=== PATIENT | male | born 1970 | race Caucasian/White ===

== ENCOUNTER 2016-09-13 20:09 | Emergency (ER) | payer OTHER ==
[~2016-09-13] VITALS: Ht 175.3 cm; Wt 61.8 kg
[~2016-09-13 20:09] MED LIST: LBR25 PO; LEVE500T13 PO; THM100 PO
[2016-09-13 20:25] VITALS: TEMP 36.7; Ht 175.3 cm; Wt 61.8 kg
[2016-09-13] MEDS ORDERED: SODIUM CHLORIDE 0.9% 1000ML 1,000 ML IV STA (20:46)
[2016-09-13] MEDS ORDERED: ACETAMINOPHEN 500 MG TAB PO STA (20:46)
[2016-09-13] MEDS ORDERED: IBUPROFEN 200 MG TAB PO STA (20:46)
[2016-09-13] MEDS ORDERED: ONDANSETRON INJ 2 MG/ML 2 ML VIAL IV STA (20:46)
[2016-09-13] MEDS ORDERED: KETOROLAC TROMETHAMINE 30 MG/ML VIAL IV STA (20:46)
--- NOTE | 2016-09-13 20:52 | EMERGENCY ROOM VISIT NOTE ---
History Report prepared by Broderick: Saeed Berg Under the Supervision of: Dr. Clarence Landaverde M.D. First contact with patient: 20:32 Chief Complaint: ILLNESS Stated Complaint: THROWING UP,DIZZY,SORE THROAT,FELL DOWN FRI History of Present Illness The patient is a 46 year old male who presents to the Emergency Room with complaints of a persistent illness beginning last night. He notes that he has had chills, fever, dizziness, confusion, sore throat, and vomiting. He also states that he fell 3 days ago while going up steps. He hit his head and does not know how long he was laying on the ground. Source of History: patient Onset: last night Position: head, other (global) Quality: other (illness) Timing: other (persistent) Associated Symptoms: + chills, + fevers, + sorethroat, + vomiting Note: The patient notes having dizziness and confusion. Review of Systems See HPI for pertinent positives & negatives. A total of 10 systems reviewed and were otherwise negative. Past Medical & Surgical Medical Problems: (1) Alcohol abuse (2) Alcohol withdrawal seizure (3) Seizure Surgical Problems: (1) H/O hernia repair Family History No significant family history Social History Smoking Status: Never Smoker Alcohol Use: heavy Housing Status: lives alone Current/Historical Medications Scheduled Levetiracetam (Keppra), 500 MG PO BID Scheduled PRN Dextromethorphan-Phenylephrine (Day Time Cold/Flu Relief), 30 ML PO Q4 PRN for SYMPTOMS Ondansetron Hcl (Zofran), 4 MG PO Q6 PRN for Nausea Allergies Coded Allergies: Codeine (Verified Adverse Reaction, Mild, VOMITING, 04/28/16) Hydrocodone (Verified Adverse Reaction, Mild, VOMIT, 04/28/16) Physical Exam Vital Signs Date Time Temp Pulse Resp B/P Pulse Ox O2 Delivery O2 Flow Rate FiO2 09/13/16 22:11 86 20 124/94 96 Room Air 09/13/16 20:25 36.7 95 16 132/97 99 Room Air Physical Exam CONSTITUTIONAL: Patient is in mild distress. HEENT: No icterus, moist mucous membranes. Bruise noted on forehead. NECK: No meningismus, trachea is midline. CARDIOVASCULAR: Regular rate, normal perfusion RESPIRATORY: Unlabored breathing. Clear to auscultation. GASTROINTESTINAL: Non-tender GENITOURINARY: No flank tenderness MUSCULOSKELETAL: Full range of motion NEUROLOGIC: No acute gross focal deficits. PSYCHIATRIC: Normal affect SKIN: Normal for ethnicity. Medical Decision & Procedures ER Provider Diagnostic Interpretation: CT results as stated below per my review and radiologist interpretation. HEAD CT NONCONTRAST Findings: The paranasal sinuses and mastoid air cells are clear. The calvarium and skull base are intact. The ventricles and sulci are within normal limits. There is no mass, hematoma, midline shift, or acute infarct. Impression: No acute intracranial abnormality. Electronically signed by: Jamison Doshi M.D. 09/13/2016 9:28 PM Dictated Date/Time: 09/13/2016 9:23 PM Laboratory Results 09/13/16 20:55 Red Blood Count 5.09, Mean Corpuscular Volume 86.4, Mean Corpuscular Hemoglobin 29.3, Mean Corpuscular Hemoglobin Concent 33.9, Mean Platelet Volume 9.7, Neutrophils (%) (Auto) 40.9, Lymphocytes (%) (Auto) 41.4, Monocytes (%) (Auto) 14.6, Eosinophils (%) (Auto) 2.0, Basophils (%) (Auto) 0.9, Neutrophils # (Auto ) 2.26, Lymphocytes # (Auto) 2.29, Monocytes # (Auto) 0.81, Eosinophils # (Auto ) 0.11, Basophils # (Auto) 0.05 09/13/16 20:55 Test 09/13/16 00:00 09/13/16 20:55 Influenza Type A Antigen Neg for Influ A (NEG) Influenza Type B Antigen Neg for Influ B (NEG) White Blood Count 5.53 K/uL (4.8-10.8) Red Blood Count 5.09 M/uL (4.7-6.1) Hemoglobin 14.9 g/dL (14.0-18.0) Hematocrit 44.0 % (42-52) Mean Corpuscular Volume 86.4 fL (80-100) Mean Corpuscular Hemoglobin 29.3 pg (25-34) Mean Corpuscular Hemoglobin Concent 33.9 g/dl (32-36) Platelet Count 288 K/uL (130-400) Mean Platelet Volume 9.7 fL (7.4-10.4) Neutrophils (%) (Auto) 40.9 % Lymphocytes (%) (Auto) 41.4 % Monocytes (%) (Auto) 14.6 % Eosinophils (%) (Auto) 2.0 % Basophils (%) (Auto) 0.9 % Neutrophils # (Auto) 2.26 K/uL (1.4-6.5) Lymphocytes # (Auto) 2.29 K/uL (1.2-3.4) Monocytes # (Auto) 0.81 K/uL (0.11-0.59) Eosinophils # (Auto) 0.11 K/uL (0-0.5) Basophils # (Auto) 0.05 K/uL (0-0.2) RDW Standard Deviation 43.8 fL (36.4-46.3) RDW Coefficient of Variation 14.0 % (11.5-14.5) Immature Granulocyte % (Auto) 0.2 % Immature Granulocyte # (Auto) 0.01 K/uL (0.00-0.02) Anion Gap 11.0 mmol/L (3-11) Est Creatinine Clear Calc Drug Dose 112.4 ml/min Estimated GFR () 129.5 Estimated GFR (Non- 111.7 BUN/Creatinine Ratio 6.9 (10-20) Calcium Level 9.2 mg/dl (8.5-10.1) Total Bilirubin 0.4 mg/dl (0.2-1) Aspartate Amino Transf (AST/SGOT) 23 U/L (15-37) Alanine Aminotransferase (ALT/SGPT) 14 U/L (12-78) Alkaline Phosphatase 78 U/L (45-117) Total Protein 8.4 gm/dl (6.4-8.2) Albumin 3.8 gm/dl (3.4-5.0) Globulin 4.6 gm/dl (2.5-4.0) Albumin/Globulin Ratio 0.8 (0.9-2) Labs reviewed by ED physician. Medications Administered Medications (Trade) Dose Ordered Sig/Ricardo Route Start Time Stop Time Status Last Admin Dose Admin Acetaminophen (Tylenol Tab) 1,000 mg NOW STAT PO 09/13/16 20:46 09/13/16 20:48 DC 09/13/16 21:04 1,000 MG Ibuprofen 400 mg 400 mg NOW STAT PO 09/13/16 20:46 09/13/16 20:48 DC 09/13/16 21:04 400 MG Sodium Chloride (Nss 1000ml) 1,000 ml @ 0 mls/hr Q0M STAT IV 09/13/16 20:46 09/13/16 20:48 DC 09/13/16 21:04 999 MLS/HR Ketorolac Tromethamine (Toradol Inj) 30 mg NOW STAT IV 09/13/16 20:46 09/13/16 20:48 DC 09/13/16 21:05 30 MG Ondansetron HCl (Zofran Inj) 4 mg NOW STAT IV 09/13/16 20:46 09/13/16 20:48 DC 09/13/16 21:05 4 MG ED Course 2039: Past medical records reviewed. The patient was evaluated in room C12B. A complete history and physical examination was performed. 2045: Ordered Zofran Inj 4 mg IV, Toradol Inj 30 mg IV, NSS 1,000 ml @ 0 mls/hr Wide Open IV, Ibuprofen 400 mg PO, and Acetaminophen 1,000 mg PO. 2229: Ordered Ondansetron HCl 1 homepack PO. 2234: Upon reexamination the patient is hemodynamically stable. I discussed results and treatment plan with the patient. He verbalizes agreement and understanding. The patient is ready for discharge. Medical Decision Differentials include concussion, and viral syndrome. 46-year-old presents to the emergency room with his for evaluation of generalized malaise, mild headache and nausea after striking his head after mechanical fall on his stairs roughly 1 week ago. Review of systems notable for upper respiratory complaints, occasional non-positional dizziness. Patient hydrated with IV fluids, laboratories are normal and CT head negative. He was given Zofran home program prescription. Work note for today and tomorrow provided patient request. Impression Primary Impression: Concussion Additional Impression: Viral syndrome Scribe Attestation The scribe's documentation has been prepared under my direction and personally reviewed by me in its entirety. I confirm that the note above accurately reflects all work, treatment, procedures, and medical decision making performed by me. Departure Information Dispostion Home / Self-Care Prescriptions Ondansetron Hcl (ZOFRAN) 4 Mg Tab 4 MG PO Q6 Y for Nausea, #20 TAB Prov: Clarence Landaverde MD 1/16/17 Referrals Levon Cardenas M.D. (PCP) Patient Instructions Concussion Dc, ED Viral Syndrome, My [facility] Problem Qualifiers
[2016-09-13 21:07] LABS: BASO % 0.9 %; BASO ABS # 0.05 K/uL (0-0.2); COMPLETE YES; IG% 0.2 %; LYMPH % 41.4 %; LYMPH ABS # 2.29 K/uL (1.2-3.4); MEAN CELL VOLUME 86.4 fL (80-100); MEAN CORPUSCULAR HEMOGLOBIN 29.3 pg (25-34); MEAN CORPUSCULAR HGB CONC 33.9 g/dl (32-36); MEAN PLATELET VOLUME 9.7 fL (7.4-10.4); MONO % 14.6 %; NEUT % 40.9 %; PLATELET COUNT 288 K/uL (130-400); RED BLOOD COUNT 5.09 M/uL (4.7-6.1); WHITE BLOOD COUNT 5.53 K/uL (4.8-10.8)
[2016-09-13] MEDS ORDERED: DEXT-119 PO (21:15)
--- NOTE | 2016-09-13 21:30 | DIAGNOSTIC IMAGING REPORT ---
HEAD CT NONCONTRAST CT DOSE: 537.48 mGy.cm HISTORY: head injury several days ago TECHNIQUE: Multiaxial CT images of the head were performed without the use of intravenous contrast. Automated exposure control was utilized for this study. Comparison: Head CT 04/16/2016. Findings: The paranasal sinuses and mastoid air cells are clear. The calvarium and skull base are intact. The ventricles and sulci are within normal limits. There is no mass, hematoma, midline shift, or acute infarct. Impression: No acute intracranial abnormality. Electronically signed by: Jamison Doshi M.D. 09/13/2016 9:28 PM Dictated Date/Time: 09/13/2016 9:23 PM
[2016-09-13 21:37] LABS: BUN/CREATININE RATIO 6.9 (10-20); CALCIUM 9.2 mg/dl (8.5-10.1); CREATININE 0.71 mg/dl (0.60-1.40)
[2016-09-13 21:40] LABS: ALB/GLOB RATIO 0.8 (0.9-2)
[2016-09-13 22:11] VITALS: BP 124/94; PULSE 86; O2SAT 96
[2016-09-13] MEDS ORDERED: ONDA4TAB46 PO (22:22)
[2016-09-13] MEDS ORDERED: ONDANSETRON HOME PACK 4MG OD TAB PO ONE (22:30)
== END 2016-09-13 22:38 | disposition home or self-care (01) ==
LOC: C.EDB 20:11 → C.EDC 22:38
DX: S06.0X9A Concussion with loss of consciousness of unspecified duration, initial encounter (principal); B34.9 Viral infection, unspecified; W10.9XXA Fall (on) (from) unspecified stairs and steps, initial encounter; R11.10 Vomiting, unspecified; G40.909 Epilepsy, unspecified, not intractable, without status epilepticus; Z79.899 Other long term (current) drug therapy

== ENCOUNTER 2017-10-01 15:14 | Emergency (ER) | payer BC, OTHER ==
[~2017-10-01] VITALS: Ht 177.8 cm; Wt 62.5 kg
[~2017-10-01 15:14] MED LIST changes: +DEXT-119 PO; -LBR25 PO; -THM100 PO
[2017-10-01 15:20] VITALS: TEMP 36.4; Ht 177.8 cm; Wt 62.5 kg
[2017-10-01] MEDS ORDERED: ONDA4TAB46 SL (15:27)
[2017-10-01] MEDS ORDERED: LISI10TA PO (15:27)
[2017-10-01] MEDS ORDERED: SODIUM CHLORIDE 0.9% 1000ML 1,000 ML IV STA ×2 (15:38→18:10)
[2017-10-01 15:46] VITALS: O2SAT 99
[2017-10-01] MEDS ORDERED: METH500T37 PO (15:56)
[2017-10-01 16:20] LABS: BASO % 0.4 %; BASO ABS # 0.04 K/uL (0-0.2); EOS % 0.6 %; EOS ABS # 0.06 K/uL (0-0.5); HEMATOCRIT 45.7 % (42-52); IG# 0.03 K/uL (0.00-0.02); LYMPH ABS # 0.87 K/uL (1.2-3.4); MEAN CELL VOLUME 96.2 fL (80-100); MEAN CORPUSCULAR HEMOGLOBIN 33.7 pg (25-34); MEAN PLATELET VOLUME 9.4 fL (7.4-10.4); MONO % 11.3 %; MONO ABS # 1.23 K/uL (0.11-0.59); NEUT % 79.4 %; NEUT ABS # 8.64 K/uL (1.4-6.5); PLATELET COUNT 228 K/uL (130-400); RED CELL DISTRIBUTION WIDTH CV 13.8 % (11.5-14.5); RED CELL DISTRIBUTION WIDTH SD 48.3 fL (36.4-46.3); WHITE BLOOD COUNT 10.87 K/uL (4.8-10.8)
[2017-10-01 16:38] LABS: ALBUMIN 3.7 gm/dl (3.4-5.0); ALT/SGPT 58 U/L (12-78); AST/SGOT 97 U/L (15-37); BLOOD UREA NITROGEN 6 mg/dl (7-18); CALCIUM 8.8 mg/dl (8.5-10.1); CARBON DIOXIDE 26 mmol/L (21-32); CREATININE 0.97 mg/dl (0.60-1.40); GLUCOSE 97 mg/dl (70-99); LIPASE 296 U/L (73-393); SODIUM 136 mmol/L (136-145)
[2017-10-01 16:49] LABS: ALKALINE PHOSPHATASE 58 U/L (45-117); TOTAL PROTEIN 8.2 gm/dl (6.4-8.2)
[2017-10-01 16:50] LABS: INFLUENZA B ANTIGEN Neg for Influ B (NEG)
--- NOTE | 2017-10-01 17:24 | DIAGNOSTIC IMAGING REPORT ---
ABDOMINAL ULTRASOUND, RIGHT UPPER QUADRANT HISTORY: Epigastric abdominal pain. COMPARISON: Right upper quadrant ultrasound May 19, [address] of the abdomen and pelvis May 20, 2011 FINDINGS: Hepatic echogenicity is increased. This is consistent with fatty infiltration. No hepatic lesions are identified by sonography. There is no biliary ductal dilatation. The common bile duct measures 3 mm in caliber. A small amount of perihepatic/pericholecystic ascites is present. There are no gallstones. No gallbladder wall thickening is noted. No sonographic Abarca sign was elicited. The pancreatic body is normal. The head and tail are slightly obscured by bowel gas. There is no right hydronephrosis. IMPRESSION: 1. Fatty infiltration of the liver. 2. Small amount of perihepatic ascites. Slight nodularity of the liver surface may reflect cirrhosis. 3. No gallstones or gallbladder wall thickening. 4. No biliary ductal dilatation. Electronically signed by: Lobo Bautista M.D. 10/01/2017 5:23 PM Dictated Date/Time: 10/01/2017 5:19 PM
--- NOTE | 2017-10-01 18:02 | EMERGENCY ROOM VISIT NOTE ---
History First contact with patient: 15:27 Chief Complaint: GI ASSESSMENT Stated Complaint: SHAKES,SWEATS,STOMACH CRAMPS,VOMITING,DOC REFERRED Nursing Triage Summary: PT STATES GENERALIZED ABDOMINAL PAIN WITH NAUSEA AND VOMITING, PAIN ON PALPATION RUQ, PT STATES NO DIARRHEA NOTED, STATES FEVER, HEADACHE. [place] [facility] [place] TOLD TO COME TO ED FOR FLUIDS AFTER PT HAD NEAR SYNCOPE. History of Present Illness The patient is a 47 year old male who presents to the Emergency Room via private vehicle accompanied by family with complaints of "shakes, sweats, stomach cramps, vomiting, doc referred". The patient states that yesterday he was started upon lisinopril, woke up this morning and had stomach cramps, better in the epigastric region. He has never had these before. He does note a steady consumption of beer. He states that he has had no seizures recently. He states that today he went agrees words because of the epigastric abdominal pain and was informed this was likely a viral etiology, however during his stay when he was getting ready to depart he went to stand from a sitting position sat back down and passed out. He states then he was recommended to come here for evaluation. Review of Systems A complete 10-point Review of Systems was discussed with the patient, with pertinent positives and negatives listed in the History of Present Illness. All remaining Review of Systems questions can be considered negative unless otherwise specified. Past Medical/Surgical History Medical Problems: (1) Alcohol abuse (2) Alcohol withdrawal seizure (3) Seizure Surgical Problems: (1) H/O hernia repair Family History No significant family history Social History Smoking Status: Never Smoker Alcohol Use: heavy Housing Status: lives alone Current/Historical Medications Scheduled Lisinopril (Prinivil), 10 MG PO DAILY Methocarbamol (Robaxin), 1 PO PRN UD Scheduled PRN Ondansetron Hcl (Zofran), 4 MG SL Q8 PRN for Nausea Physical Exam Vital Signs Date Time Temp Pulse Resp B/P (MAP) Pulse Ox O2 Delivery O2 Flow Rate FiO2 10/01/17 18:16 83 14 114/96 98 Room Air 10/01/17 18:01 86 14 134/89 96 Room Air 106 134/86 118 114/96 10/01/17 15:46 99 Room Air 10/01/17 15:36 74 10/01/17 15:20 36.4 92 18 107/75 100 Room Air Physical Exam VITAL SIGNS - Vital signs and nursing notes were reviewed. Stable. GENERAL -47-year-old male appearing his stated age who is in no acute distress. Communicates well with provider and answers questions appropriately. SKIN - Without rashes. No petechial or meningeal rash. HEAD - NC/AT. EYES - PERRL with EOMI bilaterally. Sclera anicteric. EARS - No deformities of external structures noted on gross examination bilaterally. NOSE - Midline and without cyanosis. No epistaxis or purulent drainage noted. MOUTH/OROPHARYNX - Without perioral cyanosis. LUNGS - Chest wall symmetric without accessory muscle use, intercostals retractions, or central cyanosis. Normal vesicular breath sounds CTA B/L. No wheezes, rales, or rhonchi appreciated. CARDIAC - RRR with S1/S2. No murmur, rubs, or gallops appreciated. ABDOMEN - Abdominal contour normal without pulsations or visible masses. BS normoactive all four quadrants. Epigastric abdominal tenderness noted. No palpable masses, hepatosplenomegaly, or ascites noted. EXTREMITIES - No clubbing or peripheral cyanosis. No pretibial edema present. +5 /5 strength noted in UE/LE bilaterally. NEUROLOGIC - Cranial nerves II through XII grossly intact. Sensory intact to light touch throughout. PSYCH - A&O, and cooperates fully with examiner. Pt is very pleasant and interacts well with examiner. Medical Decision & Procedures ER Provider Diagnostic Interpretation: ABDOMINAL ULTRASOUND, RIGHT UPPER QUADRANT HISTORY: Epigastric abdominal pain. COMPARISON: Right upper quadrant ultrasound May 19, [address] of the abdomen and pelvis May 20, 2011 FINDINGS: Hepatic echogenicity is increased. This is consistent with fatty infiltration. No hepatic lesions are identified by sonography. There is no biliary ductal dilatation. The common bile duct measures 3 mm in caliber. A small amount of perihepatic/pericholecystic ascites is present. There are no gallstones. No gallbladder wall thickening is noted. No sonographic Abarca sign was elicited. The pancreatic body is normal. The head and tail are slightly obscured by bowel gas. There is no right hydronephrosis. IMPRESSION: 1. Fatty infiltration of the liver. 2. Small amount of perihepatic ascites. Slight nodularity of the liver surface may reflect cirrhosis. 3. No gallstones or gallbladder wall thickening. 4. No biliary ductal dilatation. Electronically signed by: Lobo Bautista M.D. 10/01/2017 5:23 PM Dictated Date/Time: 10/01/2017 5:19 PM Laboratory Results 10/01/17 15:59 Red Blood Count 4.75, Mean Corpuscular Volume 96.2, Mean Corpuscular Hemoglobin 33.7, Mean Corpuscular Hemoglobin Concent 35.0, Mean Platelet Volume 9.4, Neutrophils (%) (Auto) 79.4, Lymphocytes (%) (Auto) 8.0, Monocytes (%) (Auto) 11.3, Eosinophils (%) (Auto) 0.6, Basophils (%) (Auto) 0.4, Neutrophils # (Auto ) 8.64, Lymphocytes # (Auto) 0.87, Monocytes # (Auto) 1.23, Eosinophils # (Auto ) 0.06, Basophils # (Auto) 0.04 10/01/17 15:59 Test 10/01/17 15:59 10/01/17 16:01 10/01/17 17:03 White Blood Count 10.87 K/uL (4.8-10.8) Red Blood Count 4.75 M/uL (4.7-6.1) Hemoglobin 16.0 g/dL (14.0-18.0) Hematocrit 45.7 % (42-52) Mean Corpuscular Volume 96.2 fL (80-100) Mean Corpuscular Hemoglobin 33.7 pg (25-34) Mean Corpuscular Hemoglobin Concent 35.0 g/dl (32-36) Platelet Count 228 K/uL (130-400) Mean Platelet Volume 9.4 fL (7.4-10.4) Neutrophils (%) (Auto) 79.4 % Lymphocytes (%) (Auto) 8.0 % Monocytes (%) (Auto) 11.3 % Eosinophils (%) (Auto) 0.6 % Basophils (%) (Auto) 0.4 % Neutrophils # (Auto) 8.64 K/uL (1.4-6.5) Lymphocytes # (Auto) 0.87 K/uL (1.2-3.4) Monocytes # (Auto) 1.23 K/uL (0.11-0.59) Eosinophils # (Auto) 0.06 K/uL (0-0.5) Basophils # (Auto) 0.04 K/uL (0-0.2) RDW Standard Deviation 48.3 fL (36.4-46.3) RDW Coefficient of Variation 13.8 % (11.5-14.5) Immature Granulocyte % (Auto) 0.3 % Immature Granulocyte # (Auto) 0.03 K/uL (0.00-0.02) Anion Gap 8.0 mmol/L (3-11) Est Creatinine Clear Calc Drug Dose 82.3 ml/min Estimated GFR () 106.6 Estimated GFR (Non- 91.9 BUN/Creatinine Ratio 6.0 (10-20) Calcium Level 8.8 mg/dl (8.5-10.1) Magnesium Level 1.8 mg/dl (1.8-2.4) Total Bilirubin 1.2 mg/dl (0.2-1) Aspartate Amino Transf (AST/SGOT) 97 U/L (15-37) Alanine Aminotransferase (ALT/SGPT) 58 U/L (12-78) Alkaline Phosphatase 58 U/L (45-117) Troponin I < 0.015 ng/ml (0-0.045) Total Protein 8.2 gm/dl (6.4-8.2) Albumin 3.7 gm/dl (3.4-5.0) Globulin 4.5 gm/dl (2.5-4.0) Albumin/Globulin Ratio 0.8 (0.9-2) Lipase 296 U/L (73-393) Thyroid Stimulating Hormone (TSH) 1.260 uIu/ml (0.300-4.500) Ethyl Alcohol mg/dL 9.0 mg/dl (0-3) Influenza Type A Antigen Neg for Influ A (NEG) Influenza Type B Antigen Neg for Influ B (NEG) Urine Color DK YELLOW Urine Appearance CLEAR (CLEAR) Urine pH 6.0 (4.5-7.5) Urine Specific [place] 1.018 (1.000-1.030) Urine Protein 1+ (NEG) Urine Glucose (UA) TRACE (NEG) Urine Ketones TRACE (NEG) Urine Occult Blood NEG (NEG) Urine Nitrite NEG (NEG) Urine Bilirubin NEG (NEG) Urine Urobilinogen NEG (NEG) Urine Leukocyte Esterase NEG (NEG) Urine WBC (Auto) 1-5 /hpf (0-5) Urine RBC (Auto) 0-4 /hpf (0-4) Urine Hyaline Casts (Auto) 1-5 /lpf (0-5) Urine Epithelial Cells (Auto) 10-20 /lpf (0-5) Urine Bacteria (Auto) NEG (NEG) Urine Pathogenic Casts 1-5 GRANULAR CASTS /lpf (0) Urine Opiates Screen NEG (NEG) Urine Methadone, Qualitative NEG (NEG) Urine Barbiturates NEG (NEG) Urine Phencyclidine (PCP) Level NEG (NEG) Ur Amphetamine/Methamphetamine NEG (NEG) MDMA (Ecstasy) Screen NEG (NEG) Urine Benzodiazepines Screen NEG (NEG) Urine Cocaine Metabolite NEG (NEG) Urine Marijuana (THC) NEG (NEG) Medications Administered Medications (Trade) Dose Ordered Sig/Ricardo Route Start Time Stop Time Status Last Admin Dose Admin Sodium Chloride 1,000 ml @ 999 mls/hr Q1H1M STAT IV 10/01/17 15:38 10/01/17 16:38 DC 10/01/17 16:03 999 MLS/HR Sodium Chloride 1,000 ml @ 999 mls/hr Q1H1M STAT IV 10/01/17 18:10 10/01/17 19:10 10/01/17 18:16 999 MLS/HR Medical Decision Patient was seen and evaluated as above. He presents to us today with epigastric abdominal pain and syncopal event. He is nontoxic on exam, and bedside EKG reveals normal sinus rhythm, prolonged QT. No evidence of PR on this EKG. he was informed upon the QT prolongation however this was found to be chronic when I reviewed his previous EKG of 04/25/2016. He declines pain medication. He was given normal saline and orthostatics were obtained. He was found orthostatic and was given another liter. By mouth fluid trial was well. His leukocytosis at 10.7 which is minimal, no anemia noted. Metabolic panel reveals no evidence of kidney or liver failure. His AST is elevated at 97 with bilirubin 1.2. Urine reveals trace ketones, epithelial cells and granular casts. Patient's alcohol level is 9.0. Other drug screen was negative. Negative for flu. I suspect is likely experiencing acute gastritis which could be exacerbated by the recent lisinopril dosage however I suspect the lisinopril initiation yesterday is likely just coincidental. He was informed that the beer does not help the gastritis. Ultrasound right upper quadrant reveals no acute process. He was informed upon the incidental's. He has tenderness in the epigastric region. No evidence of PR. After the second liter of fluid his feeling much better. 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 He did not pass out. I believe he is stable for outpatient management. He was educated upon management, educated upon worrisome symptoms which to return, had questions answered prior to discharge, and was discharged home in good condition. Case was discussed with the attending physician. In the evaluation and treatment of this patient following differential diagnoses were entertained: Acute gastroenteritis, acute cholecystitis, PR, PE, among others. Impression Primary Impression: Gastritis Additional Impressions: Syncope Fatty infiltration of liver QT prolongation Bilirubinemia Elevated AST (SGOT) Departure Information Dispostion Home / Self-Care Condition GOOD Referrals Levon Cardenas M.D. (PCP) Patient Instructions My [facility] Additional Instructions You have been treated in the Emergency Department your Abdominal Pain. Laboratory results and imaging studies have ruled out any emergent causes for your abdominal pain which would warrant admission or surgery. I suspect are likely experiencing gastritis, which has irritation of your stomach lining. Please decrease acidic foods, such as eliminating soda, acidic beer, hot sauce, tomato juice, pizza, etc. I recommend using Tums for extreme onsets of pain, or Maalox. Please do not use more than what is recommended. Drink plenty of water and stay well hydrated. As with any trip to the Emergency Department, you should follow-up with your Primary Care Provider from today's visit. Please follow up for the ultrasound today, your blood work and the QT prolongation on your EKG which appears to be chronic. Return to the emergency department if your symptoms persist despite treatment plan outlined above or if the following symptoms occur: increased fevers, chills , worsening nausea/vomiting, blood in your stool or urine. Problem Qualifiers
[2017-10-01 20:09] VITALS: BP 145/94; PULSE 82; O2SAT 98
== END 2017-10-01 20:10 | disposition home or self-care (01) ==
LOC: C.EDB 15:16
DX: K29.70 Gastritis, unspecified, without bleeding (principal); R55 Syncope and collapse; K76.0 Fatty (change of) liver, not elsewhere classified; I45.81 Long QT syndrome; E80.7 Disorder of bilirubin metabolism, unspecified; R94.5 Abnormal results of liver function studies; Z98.890 Other specified postprocedural states

== ENCOUNTER 2017-12-30 20:48 | Emergency (ER) | payer BC ==
[~2017-12-30] VITALS: Ht 172.7 cm; Wt 60.2 kg
[~2017-12-30 20:48] MED LIST changes: -DEXT-119 PO; -LEVE500T13 PO; +LISI10TA PO; +METH500T37 PO; +ONDA4TAB46 SL
[2017-12-30 20:52] VITALS: TEMP 36.6; Ht 172.7 cm; Wt 60.2 kg
--- NOTE | 2017-12-30 21:36 | EMERGENCY ROOM VISIT NOTE ---
History Report prepared by Broderick: Justin Mishra Under the Supervision of: Dr. Camilla Grey D.O. First contact with patient: 21:29 Chief Complaint: HEAD INJURY (MINOR) Stated Complaint: HIT IN THE HEAD W BASEBALL, MEMORY LOSS, VOMITING History of Present Illness The patient is a 47 year old male who presents to the Emergency Room with complaints of a constant head injury occurring three hours ago. 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 He notes that an eight year old with a strong arm accidentally threw the baseball at the right side of his head. He reports that he did not lose consciousness but does not remember much of the accident. The patient states that he was able to get up by himself. Per , the patient vomited twice while at home and seemed confused. The patient also complains of dizziness and nausea. He denies any blurry vision, ringing in his ears, CP, SOB, neck pain, jaw pain, and back pain. He notes that he does not take any medication or have any chronic problems. No vomiting since arrival here. Patient does not use any daily aspirin, plavix, or other anticoagulation. Source of History: patient, family () Onset: three hours ago Position: head (right-sided) Symptom Intensity: 05/18 Timing: constant Associated Symptoms: + nausea, + vomiting (x2), No LOC, No neck pain, No chest pain, No SOB, No back pain Note: Per , the patient seems confused. The patient also complains of dizziness. He denies any blurry vision, ringing in his ears, and jaw pain. Review of Systems See HPI for pertinent positives & negatives. A total of 10 systems reviewed and were otherwise negative. Past Medical & Surgical Medical Problems: (1) Alcohol abuse (2) Alcohol withdrawal seizure (3) Seizure Surgical Problems: (1) H/O hernia repair Family History Diabetes mellitus FHx: cancer FHx: seizures Heart disease Hypertension Lung disease Social History Smoking Status: Never Smoker Alcohol Use: heavy Marital Status: Housing Status: lives with family Current/Historical Medications No Active Prescriptions or Reported Meds Allergies Coded Allergies: Codeine (Verified Adverse Reaction, Mild, VOMITING, 12/30/17) Hydrocodone (Verified Adverse Reaction, Mild, VOMIT, 12/30/17) Physical Exam Vital Signs Date Time Temp Pulse Resp B/P (MAP) Pulse Ox O2 Delivery O2 Flow Rate FiO2 12/30/17 23:28 85 18 116/87 96 Room Air 12/30/17 20:52 36.6 92 18 154/104 96 Room Air Physical Exam GENERAL: alert, well appearing, well nourished, no distress, non-toxic, poor dentition HEAD: normal cephalic, atraumatic, pain over left muslim, no obvious contusion or swelling EYE EXAM: normal conjunctiva, PERRL and EOM's grossly intact OROPHARYNX: no exudate, no erythema, lips, buccal mucosa, and tongue normal and mucous membranes are moist EARS: Left TM clear, right TM could not be visualized due to cerumen. NECK: supple, no nuchal rigidity, no adenopathy, non-tender CHEST: stable to compression anteriorly and posteriorly LUNGS: clear to auscultation. Normal chest wall mechanics HEART: no murmurs, S1 normal and S2 normal ABDOMEN: abdomen soft, non-tender, normo-active bowel sounds, no masses, no rebound or guarding. PELVIS: stable to compression anteriorly and posteriorly BACK: Back is symmetrical on inspection and there is no deformity, no midline tenderness, no CVA tenderness. UPPER EXTREMITIES: full active and passive range of motion of all joints without tenderness to palpation LOWER EXTREMITIES: full active and passive range of motion of all joints without tenderness to palpation NEURO EXAM: Normal sensorium, cranial nerves II-XII grossly intact, normal speech, no gross weakness of arms, no gross weakness of legs. GCS: 15. Medical Decision & Procedures ER Provider Diagnostic Interpretation: Radiology results have been interpreted by the radiologist and reviewed by me. HEAD WITHOUT CONTRAST (CT) FINDINGS: No acute intracranial hemorrhage, midline shift, intracranial mass, hydrocephalus, territorial ischemia or abnormal extra-axial collection. The calvarium is intact. The paranasal sinuses, mastoid air cells, and middle ear cavities are clear. IMPRESSION: No acute intracranial abnormality or calvarial fracture. The above report was generated using voice recognition software. It may contain grammatical, syntax or spelling errors. Electronically signed by: Noel Greene M.D. 12/30/2017 10:18 PM ED Course 0: The patient was evaluated in room C6. A complete history and physical exam was performed. 2253: I reevaluated and updated the patient. 2323: Upon reevaluation, the patient is feeling better. I discussed the findings and the treatment plan with the patient. He verbalizes agreement and understanding. The patient was discharged home. Medical Decision Differential diagnosis: Etiologies such as fracture, dislocation, intra-abdominal, pneumothorax, intrathoracic , intracranial, neurologic, as well as other traumatic pathologies were entertained. Discussed with patient close follow-up with family doctor, symptoms and precautions regarding concussions, adequate hydration, avoidance of any additional injury, symptoms to watch and return for, he verbalized understanding was agreeable with plan. Discussed with him small risk of occult intracranial hemorrhage given nature of trauma, he and verbalized understanding. I do not suspect any additional occult traumatic injury given his description and exam findings here. Patient ambulating with steady gait, driving him home. Head Trauma GCS Score: 15 Blood Pressure Screening Patient's blood pressure: Normal blood pressure Blood pressure disposition: Did not require urgent referral Impression Primary Impression: Closed head injury Additional Impression: Concussion Scribe Attestation The scribe's documentation has been prepared under my direction and personally reviewed by me in its entirety. I confirm that the note above accurately reflects all work, treatment, procedures, and medical decision making performed by me. Departure Information Dispostion Home / Self-Care Prescriptions No Active Prescriptions or Reported Meds Referrals Levon Cardenas M.D. (PCP) Forms HOME CARE DOCUMENTATION FORM, IMPORTANT VISIT INFORMATION Patient Instructions My [facility] Additional Instructions Please stay well-hydrated, you may use Tylenol or ibuprofen for pain. Please call follow-up with your family doctor as a precaution to assure that you are improving. Please avoid heavy lifting or strenuous activity until you are feeling better. Please note that your symptoms of a concussion may last for several days but should slowly be getting better. If you develop worsening headaches, dizziness, vision changes, develop recurrent vomiting, are unable to walk, or you have any other new concerns, please return the emergency room. Problem Qualifiers Primary Impression: Closed head injury Encounter type: initial encounter Qualified Codes: S09.90XA - Unspecified injury of head, initial encounter Additional Impression: Concussion Encounter type: initial encounter Loss of consciousness presence/duration: without LOC Qualified Codes: S06.0X0A - Concussion without loss of consciousness, initial encounter
--- NOTE | 2017-12-30 22:19 | DIAGNOSTIC IMAGING REPORT ---
HEAD WITHOUT CONTRAST (CT) CLINICAL HISTORY: 47 years-old Male with hit with baseball left druze. Acute left temporal trauma TECHNIQUE: Multiple axial CT images of the head were obtained without contrast. A dose lowering technique was utilized adhering to the principles of ALARA. CT DOSE: 729.78 mGycm COMPARISON: Head CT 09/13/2016. FINDINGS: No acute intracranial hemorrhage, midline shift, intracranial mass, hydrocephalus, territorial ischemia or abnormal extra-axial collection. The calvarium is intact. The paranasal sinuses, mastoid air cells, and middle ear cavities are clear. IMPRESSION: No acute intracranial abnormality or calvarial fracture. The above report was generated using voice recognition software. It may contain grammatical, syntax or spelling errors. Electronically signed by: Noel Greene M.D. 12/30/2017 10:18 PM Dictated Date/Time: 12/30/2017 10:16 PM
[2017-12-30 23:28] VITALS: BP 116/87; PULSE 85; O2SAT 96
== END 2017-12-30 23:29 | disposition home or self-care (01) ==
LOC: C.EDB 20:51 → C.EDC 23:29
DX: S06.0X0A Concussion without loss of consciousness, initial encounter (principal); R41.3 Other amnesia; R11.10 Vomiting, unspecified; W21.03XA Struck by baseball, initial encounter; Y92.320 Baseball field as the place of occurrence of the external cause

== ENCOUNTER 2020-09-24 19:30 | Observation (INO) ==
[2020-09-24] MEDS ORDERED: MULTI-VITAMIN INFUSION 10 ML, THIAMINE HCL 100 MG, FOLIC ACID 1 MG in SODIUM CHLORIDE 0... IV ONE (20:07)
[2020-09-24 20:38] LABS: Basophils # (auto) 0.03 K/uL (0-0.2); Basophils % (auto) 0.7 %; Eosinophils # (auto) 0.05 K/uL (0-0.5); Eosinophils % (auto) 1.2 %; Hematocrit (blood only) 37.4 % (42-52); Hemoglobin 13.1 g/dL (14.0-18.0); Immature Granulocytes # (auto) 0.01 K/uL (0.00-0.02); Immature Granulocytes % (auto) 0.2 %; Lymphocytes # (auto) 1.03 K/uL (1.2-3.4); Lymphocytes % (auto) 24.1 %; Mean Corpuscular Hemoglobin 33.3 pg (25-34); Mean Corpuscular Volume 95.2 fL (80-100); Mean Platelet Volume 9.4 fL (7.4-10.4); Monocytes # (auto) 0.74 K/uL (0.11-0.59); Monocytes % (auto) 17.3 %; Neutrophils # (auto) 2.42 K/uL (1.4-6.5); Neutrophils % (auto) 56.5 %; Platelet Count 149 K/uL (130-400); RDW Coefficient of Variation 13.6 % (11.5-14.5); RDW Standard Deviation 47.4 fL (36.4-46.3); Red Blood Count 3.93 M/uL (4.7-6.1); White Blood Count 4.28 K/uL (4.8-10.8)
[2020-09-24 20:47] LABS: Prothrombin Time 10.6 Seconds (9.0-12.0)
[2020-09-24 20:58] LABS: Albumin Level 3.6 gm/dl (3.4-5.0); BUN Creatinine Ratio 2.9 (10-20); Creatinine Clr Calc Pharmacy 117.3 ml/min; Est GFR (African American) 127.4; Est GFR (Non-African American) 109.9; Magnesium 1.6 mg/dl (1.8-2.4); Potassium 3.4 mmol/L (3.5-5.1)
[2020-09-24 21:01] LABS: Albumin Globulin Ratio 0.8 (0.9-2); Globulin 4.4 gm/dl (2.5-4.0)
--- NOTE | 2020-09-24 21:09 | Emergency Department Note ---
Impression & Plan Alcohol abuse ED Provider Note INFORMANT: Patient ED PROVIDER(S): Viktor Gamez MD CHIEF COMPLAINT: Detox request PLAN: Disposition: Admitted Condition: Good Outpatient prescription management: None Referral: None MEDICAL DECISION MAKING: Patient presented to emergency department requesting detox. He has a significant alcohol history. The patient was given a banana bag. He had blood work obtained. His CBC and chemistry panel was significant for hyponatremia. ECG did not reveal any acute ischemic change. The patient was given a dose of IV Ativan. His alcohol level was very elevated. Given his hyponatremia and detox request a consultation was placed with internal medicine. I discussed the case with Dr. Braulio May, [facility] hospitalist service. The patient was e valuated in the ER for further management. Covid testing performed and negative. Triage Nursing notes reviewed and agree them. Vital Signs: reviewed and remarkable for no significant abnormalities Differential diagnosis: Alcoholism, alcohol withdrawal, alcohol intoxication, overdose, toxicologic, infection, hypoglycemia, electrolyte abnormalities, cardiac sources, intracerebral event, neurologic, trauma, as well as other pathologies. Diagnostics interpreted by me: ECG: Twelve-lead ECG reveals a normal sinus rhythm and sinus arrhythmia at 85 bpm. Prolonged QT. [address] elevation or depression. No PACs or PVCs. Normal axis. Cardiac Monitoring: Cardiac monitoring ordered by me: The patient was placed on continuous cardiac monitoring and observed. It revealed a normal sinus rhythm at 84 beats per minute without ectopy or evidence of dysrhythmia. HPI: The patient is a 50 year old male who presents to the Emergency Room with complaints of detox request. This problem with alcohol started years ago and is worsening. The patient has been in rehab before. He admits to drinking 10-12 beers a day. Friends brought him to the emergency department due to concerns about his alcoholism. The patient is cooperative and desires rehab. He does note a history of seizures. The patient also notes the following associated symptoms, generalized weakness and fatigue. The patient has has taken no medication for relieving factors. Current pain is rated as 0/10. Last drink was about 1 hour prior to arrival. Patient also notes chronic numbness in his left arm for years. Pt denies LOC, headache, fevers, chills, diaphoresis, visual changes, neck pain, chest pain, breathing difficulties, nausea, vomiting, abdominal pain, back pain, melena, hematochezia, urinary symptoms, new numbness, lymphadenopathy, rash, or other complaints. ROS: See above HPI for pertinent positives & negatives. A total of 10 systems reviewed and were otherwise negative. PAST MEDICAL HISTORY:See Below , alcohol abuse PAST SURGICAL HISTORY:See Below, FAMILY HISTORY:See Below SOCIAL HISTORY:See Below, drinks alcohol daily HOME MEDICATIONS:See Below ALLERGIES:See Below VITALS:See Below PHYSICAL EXAMINATION: GENERAL: Awake, alert, well-appearing, in no distress HENT: Normocephalic, atraumatic. Oropharynx unremarkable. EYES: Normal conjunctiva. Sclera non-icteric. NECK: Inspection normal. Non-tender. Supple. No nuchal rigidity. FROM. No masses. RESPIRATORY: Clear to auscultation. No wheezes. No rales. Normal respiratory effort. CARDIAC: Borderline tachycardic rate. Normal rhythm. No murmurs. No rubs. Extremities warm and well perfused. Pulses equal. No JVD. GI: Soft, non-distended. No tenderness to palpation. No rebound or guarding. No masses. RECTAL: Deferred. MUSCULOSKELETAL: Atraumatic. Chest examination reveals no tenderness. The back is symmetrical on inspection without obvious abnormality. There is no CVA tenderness to palpation. No joint edema. LOWER EXTREMITIES: Calves are equal size bilaterally and non-tender. No edema. No discoloration. NEURO: Normal sensorium. No sensory or motor deficits noted. SKIN: No rash or jaundice noted. Viktor Gamez MD Past Med/Surg History Medical History (Updated 09/24/20 @ 21:07 by Viktor Gamez MD) Alcohol abuse Hypertension Seizure Surgical History H/O hernia repair Family History Other No significant family history Social History Smoking Status: Never smoker Preferred Language: Bengali marital status: current occupational status: employed Feels Safe at Home: No Allergies Allergies Allergy/AdvReac Type Severity Reaction Status Date / Time codeine AdvReac Mild VOMITING Verified 09/24/20 20:09 hydrocodone AdvReac Mild VOMIT Verified 09/24/20 20:09 Home Meds Home Medications Medication Instructions Recorded Confirmed metoprolol succinate [Toprol XL] 25 mg PO DAILY 02/17/19 09/24/20 gabapentin 300 mg PO TID 09/01/20 09/24/20 pregabalin 100 mg PO BID 09/01/20 09/24/20 thiamine HCl (vitamin B1) 50 mg PO DAILY 09/01/20 09/24/20 Results & Data (ED) Vital Signs Vital Signs - 24 hr 09/24/20 19:38 09/24/20 20:26 09/24/20 20:45 Temperature 36.4 C L Temperature Source Temporal Artery Scan Pulse Rate 98 H 82 Pulse Rate [Apical] Pulse Rate from SpO2 Sensor 85 Pulse Rhythm [Apical] Pulse Strength [Apical] Respiratory Rate 18 14 Respiratory Effort / Characteristics Non-Labored Spontaneous Respiratory Depth Normal Respiratory Pattern Blood Pressure 165/115 H Blood Pressure [Left Arm] Blood Pressure Mean 131 Blood Pressure Mean [Left Arm] Blood Pressure Position [Left Arm] Pulse Oximetry 98 98 97 Oxygen Delivery Method Room Air Room Air Sepsis Recent Fever Within 48 Hours No Sepsis New/Unexplained Change in Mental Status No Sepsis Action Taken by Nursing No Action Required 09/24/20 20:50 09/24/20 21:00 09/24/20 21:13 Temperature Temperature Source Pulse Rate 89 83 98 H Pulse Rate [Apical] Pulse Rate from SpO2 Sensor 90 86 96 H Pulse Rhythm [Apical] Pulse Strength [Apical] Respiratory Rate 17 18 17 Respiratory Effort / Characteristics Respiratory Depth Respiratory Pattern Blood Pressure 140/102 H Blood Pressure [Left Arm] Blood Pressure Mean 114 Blood Pressure Mean [Left Arm] Blood Pressure Position [Left Arm] Pulse Oximetry 98 95 97 Oxygen Delivery Method Sepsis Recent Fever Within 48 Hours Sepsis New/Unexplained Change in Mental Status Sepsis Action Taken by Nursing 09/24/20 21:20 09/24/20 21:30 09/24/20 21:40 Temperature Temperature Source Pulse Rate 86 86 84 Pulse Rate [Apical] Pulse Rate from SpO2 Sensor 84 85 85 Pulse Rhythm [Apical] Pulse Strength [Apical] Respiratory Rate 17 18 19 Respiratory Effort / Characteristics Respiratory Depth Respiratory Pattern Blood Pressure 132/99 Blood Pressure [Left Arm] Blood Pressure Mean 110 Blood Pressure Mean [Left Arm] Blood Pressure Position [Left Arm] Pulse Oximetry 96 98 100 Oxygen Delivery Method Sepsis Recent Fever Within 48 Hours Sepsis New/Unexplained Change in Mental Status Sepsis Action Taken by Nursing 09/24/20 21:50 09/24/20 22:00 09/24/20 22:10 Temperature Temperature Source Pulse Rate 81 80 81 Pulse Rate [Apical] Pulse Rate from SpO2 Sensor 82 81 80 Pulse Rhythm [Apical] Pulse Strength [Apical] Respiratory Rate 18 21 23 Respiratory Effort / Characteristics Respiratory Depth Respiratory Pattern Blood Pressure 131/93 Blood Pressure [Left Arm] Blood Pressure Mean 105 Blood Pressure Mean [Left Arm] Blood Pressure Position [Left Arm] Pulse Oximetry 96 96 96 Oxygen Delivery Method Sepsis Recent Fever Within 48 Hours Sepsis New/Unexplained Change in Mental Status Sepsis Action Taken by Nursing 09/24/20 22:20 09/24/20 22:30 09/24/20 22:40 Temperature Temperature Source Pulse Rate 80 80 83 Pulse Rate [Apical] Pulse Rate from SpO2 Sensor 79 79 82 Pulse Rhythm [Apical] Pulse Strength [Apical] Respiratory Rate 17 17 18 Respiratory Effort / Characteristics Respiratory Depth Respiratory Pattern Blood Pressure 125/95 Blood Pressure [Left Arm] Blood Pressure Mean 105 Blood Pressure Mean [Left Arm] Blood Pressure Position [Left Arm] Pulse Oximetry 95 95 96 Oxygen Delivery Method Sepsis Recent Fever Within 48 Hours Sepsis New/Unexplained Change in Mental Status Sepsis Action Taken by Nursing 09/24/20 22:50 09/25/20 00:02 Temperature Temperature Source Pulse Rate Pulse Rate [Apical] 84 Pulse Rate from SpO2 Sensor 89 Pulse Rhythm [Apical] Regular Pulse Strength [Apical] Normal Respiratory Rate 14 Respiratory Effort / Characteristics Non-Labored Spontaneous Respiratory Depth Normal Respiratory Pattern Regular Blood Pressure Blood Pressure [Left Arm] 131/90 Blood Pressure Mean Blood Pressure Mean [Left Arm] 103 Blood Pressure Position [Left Arm] Semi-fowlers Pulse Oximetry 98 98 Oxygen Delivery Method Room Air Sepsis Recent Fever Within 48 Hours Sepsis New/Unexplained Change in Mental Status Sepsis Action Taken by Nursing Laboratory Data Result diagrams: 09/24/20 20:20 09/24/20 20:20 Lab Results 09/24/20 09/24/20 09/24/20 Range/Units 20:20 20:20 20:20 WBC (4.8-10.8) K/uL RBC (4.7-6.1) M/uL Hgb (14.0-18.0) g/dL Hct (42-52) % MCV (80-100) fL MCH (25-34) pg MCHC (32-36) g/dL RDW Std Deviation (36.4-46.3) fL RDW Coeff of Sherice (11.5-14.5) % Plt Count (130-400) K/uL MPV (7.4-10.4) fL Immature Gran % (Auto) % Neut % (Auto) % Lymph % (Auto) % [place] % (Auto) % Eos % (Auto) % Baso % (Auto) % Neut # (Auto) (1.4-6.5) K/uL Lymph # (Auto) (1.2-3.4) K/uL [place] # (Auto) (0.11-0.59) K/uL Eos # (Auto) (0-0.5) K/uL Baso # (Auto) (0-0.2) K/uL Immature Gran # (Auto) (0.00-0.02) K/uL PT 10.6 (9.0-12.0) Seconds INR 1.0 (0.9-1.1) Sodium 127 L (136-145) mmol/L Potassium 3.4 L (3.5-5.1) mmol/L Chloride 90 L (98-107) mmol/L Carbon Dioxide 25 (21-32) mmol/L Anion Gap 12.0 H (3-11) BUN 2 L (7-18) mg/dl Creatinine 0.69 (0.6-1.4) mg/dl Est Cr Clr Drug Dosing 117.3 ml/min Est GFR ( Amer) 127.4 Est GFR (Non-Af Amer) 109.9 BUN/Creatinine Ratio 2.9 L (10-20) Glucose 86 (70-99) mg/dl Osmolality (280-300) mOsm/kg Calcium 9.0 (8.5-10.1) mg/dl Magnesium 1.6 L (1.8-2.4) mg/dl Total Bilirubin 1.0 (0.2-1) mg/dl AST 91 H (15-37) U/L ALT 32 (12-78) U/L Alkaline Phosphatase 71 (45-117) U/L Total Protein 8.0 (6.4-8.2) gm/dl Albumin 3.6 (3.4-5.0) gm/dl Globulin 4.4 H (2.5-4.0) gm/dl Albumin/Globulin Ratio 0.8 L (0.9-2) Lipase 342 (73-393) U/L TSH 1.450 (0.300-4.500) uIu/ml Urine Color Urine Appearance (Clear) Urine pH (4.5-7.5) Ur Specific Harmony (1.000-1.030) Urine Protein (Negative) Urine Glucose (UA) (Negative) Urine Ketones (Negative) Urine Blood (Negative) Urine Nitrite (Negative) Urine Bilirubin (Negative) Urine Urobilinogen (Negative) Ur Leukocyte Esterase (Negative) Urine Osmolality (500-800) mOsm/kg Ur Random Sodium mmol/L Ethyl Alcohol mg/dL 324.2 H (0-3) mg/dl COVID-19 Eval Order SARS-CoV-2, RNA, NAAT (NEGATIVE) 09/24/20 09/24/20 09/24/20 Range/Units 20:20 20:24 21:15 WBC 4.28 L (4.8-10.8) K/uL RBC 3.93 L (4.7-6.1) M/uL Hgb 13.1 L (14.0-18.0) g/dL Hct 37.4 L (42-52) % MCV 95.2 (80-100) fL MCH 33.3 (25-34) pg MCHC 35.0 (32-36) g/dL RDW Std Deviation 47.4 H (36.4-46.3) fL RDW Coeff of Sherice 13.6 (11.5-14.5) % Plt Count 149 (130-400) K/uL MPV 9.4 (7.4-10.4) fL Immature Gran % (Auto) 0.2 % Neut % (Auto) 56.5 % Lymph % (Auto) 24.1 % [place] % (Auto) 17.3 % Eos % (Auto) 1.2 % Baso % (Auto) 0.7 % Neut # (Auto) 2.42 (1.4-6.5) K/uL Lymph # (Auto) 1.03 L (1.2-3.4) K/uL [place] # (Auto) 0.74 H (0.11-0.59) K/uL Eos # (Auto) 0.05 (0-0.5) K/uL Baso # (Auto) 0.03 (0-0.2) K/uL Immature Gran # (Auto) 0.01 (0.00-0.02) K/uL PT (9.0-12.0) Seconds INR (0.9-1.1) Sodium (136-145) mmol/L Potassium (3.5-5.1) mmol/L Chloride (98-107) mmol/L Carbon Dioxide (21-32) mmol/L Anion Gap (3-11) BUN (7-18) mg/dl Creatinine (0.6-1.4) mg/dl Est Cr Clr Drug Dosing ml/min Est GFR ( Amer) Est GFR (Non-Af Amer) BUN/Creatinine Ratio (10-20) Glucose (70-99) mg/dl Osmolality 343 H (280-300) mOsm/kg Calcium (8.5-10.1) mg/dl Magnesium (1.8-2.4) mg/dl Total Bilirubin (0.2-1) mg/dl AST (15-37) U/L ALT (12-78) U/L Alkaline Phosphatase (45-117) U/L Total Protein (6.4-8.2) gm/dl Albumin (3.4-5.0) gm/dl Globulin (2.5-4.0) gm/dl Albumin/Globulin Ratio (0.9-2) Lipase (73-393) U/L TSH (0.300-4.500) uIu/ml Urine Color Urine Appearance (Clear) Urine pH (4.5-7.5) Ur Specific Harmony (1.000-1.030) Urine Protein (Negative) Urine Glucose (UA) (Negative) Urine Ketones (Negative) Urine Blood (Negative) Urine Nitrite (Negative) Urine Bilirubin (Negative) Urine Urobilinogen (Negative) Ur Leukocyte Esterase (Negative) Urine Osmolality (500-800) mOsm/kg Ur Random Sodium mmol/L Ethyl Alcohol mg/dL (0-3) mg/dl COVID-19 Eval Order Covid19 [email or web address] SARS-CoV-2, RNA, NAAT (NEGATIVE) 09/24/20 09/24/20 09/24/20 Range/Units 21:15 23:50 23:50 WBC (4.8-10.8) K/uL RBC (4.7-6.1) M/uL Hgb (14.0-18.0) g/dL Hct (42-52) % MCV (80-100) fL MCH (25-34) pg MCHC (32-36) g/dL RDW Std Deviation (36.4-46.3) fL RDW Coeff of Sherice (11.5-14.5) % Plt Count (130-400) K/uL MPV (7.4-10.4) fL Immature Gran % (Auto) % Neut % (Auto) % Lymph % (Auto) % [place] % (Auto) % Eos % (Auto) % Baso % (Auto) % Neut # (Auto) (1.4-6.5) K/uL Lymph # (Auto) (1.2-3.4) K/uL [place] # (Auto) (0.11-0.59) K/uL Eos # (Auto) (0-0.5) K/uL Baso # (Auto) (0-0.2) K/uL Immature Gran # (Auto) (0.00-0.02) K/uL PT (9.0-12.0) Seconds INR (0.9-1.1) Sodium (136-145) mmol/L Potassium (3.5-5.1) mmol/L Chloride (98-107) mmol/L Carbon Dioxide (21-32) mmol/L Anion Gap (3-11) BUN (7-18) mg/dl Creatinine (0.6-1.4) mg/dl Est Cr Clr Drug Dosing ml/min Est GFR ( Amer) Est GFR (Non-Af Amer) BUN/Creatinine Ratio (10-20) Glucose (70-99) mg/dl Osmolality (280-300) mOsm/kg Calcium (8.5-10.1) mg/dl Magnesium (1.8-2.4) mg/dl Total Bilirubin (0.2-1) mg/dl AST (15-37) U/L ALT (12-78) U/L Alkaline Phosphatase (45-117) U/L Total Protein (6.4-8.2) gm/dl Albumin (3.4-5.0) gm/dl Globulin (2.5-4.0) gm/dl Albumin/Globulin Ratio (0.9-2) Lipase (73-393) U/L TSH (0.300-4.500) uIu/ml Urine Color Yellow Urine Appearance Clear (Clear) Urine pH 6.5 (4.5-7.5) Ur Specific Harmony 1.005 (1.000-1.030) Urine Protein Negative (Negative) Urine Glucose (UA) Negative (Negative) Urine Ketones Negative (Negative) Urine Blood Negative (Negative) Urine Nitrite Negative (Negative) Urine Bilirubin Negative (Negative) Urine Urobilinogen Negative (Negative) Ur Leukocyte Esterase Negative (Negative) Urine Osmolality 175 L (500-800) mOsm/kg Ur Random Sodium mmol/L Ethyl Alcohol mg/dL (0-3) mg/dl COVID-19 Eval Order SARS-CoV-2, RNA, NAAT NEGATIVE (NEGATIVE) 09/24/20 Range/Units 23:50 WBC (4.8-10.8) K/uL RBC (4.7-6.1) M/uL Hgb (14.0-18.0) g/dL Hct (42-52) % MCV (80-100) fL MCH (25-34) pg MCHC (32-36) g/dL RDW Std Deviation (36.4-46.3) fL RDW Coeff of Sherice (11.5-14.5) % Plt Count (130-400) K/uL MPV (7.4-10.4) fL Immature Gran % (Auto) % Neut % (Auto) % Lymph % (Auto) % [place] % (Auto) % Eos % (Auto) % Baso % (Auto) % Neut # (Auto) (1.4-6.5) K/uL Lymph # (Auto) (1.2-3.4) K/uL [place] # (Auto) (0.11-0.59) K/uL Eos # (Auto) (0-0.5) K/uL Baso # (Auto) (0-0.2) K/uL Immature Gran # (Auto) (0.00-0.02) K/uL PT (9.0-12.0) Seconds INR (0.9-1.1) Sodium (136-145) mmol/L Potassium (3.5-5.1) mmol/L Chloride (98-107) mmol/L Carbon Dioxide (21-32) mmol/L Anion Gap (3-11) BUN (7-18) mg/dl Creatinine (0.6-1.4) mg/dl Est Cr Clr Drug Dosing ml/min Est GFR ( Amer) Est GFR (Non-Af Amer) BUN/Creatinine Ratio (10-20) Glucose (70-99) mg/dl Osmolality (280-300) mOsm/kg Calcium (8.5-10.1) mg/dl Magnesium (1.8-2.4) mg/dl Total Bilirubin (0.2-1) mg/dl AST (15-37) U/L ALT (12-78) U/L Alkaline Phosphatase (45-117) U/L Total Protein (6.4-8.2) gm/dl Albumin (3.4-5.0) gm/dl Globulin (2.5-4.0) gm/dl Albumin/Globulin Ratio (0.9-2) Lipase (73-393) U/L TSH (0.300-4.500) uIu/ml Urine Color Urine Appearance (Clear) Urine pH (4.5-7.5) Ur Specific Harmony (1.000-1.030) Urine Protein (Negative) Urine Glucose (UA) (Negative) Urine Ketones (Negative) Urine Blood (Negative) Urine Nitrite (Negative) Urine Bilirubin (Negative) Urine Urobilinogen (Negative) Ur Leukocyte Esterase (Negative) Urine Osmolality (500-800) mOsm/kg Ur Random Sodium 35 mmol/L Ethyl Alcohol mg/dL (0-3) mg/dl COVID-19 Eval Order SARS-CoV-2, RNA, NAAT (NEGATIVE) Administered Medications Discontinued Medications Gabapentin (Gabapentin 600 Mg Tab) 1,200 mg PO NOW STA Stop: 09/24/20 22:51 Last Admin: 09/24/20 23:25 Dose: 1,200 mg Documented by: [id number] Multivitamins 10 ml/ Thiamine HCl 100 mg/ Folic Acid 1 mg/Sodium Chloride 1,011.2 mls @ 1,011.2 mls/hr IV .Q1H ONE Stop: 09/24/20 21:06 Last Infusion: 09/24/20 21:38 Dose: 0 mls/hr Documented by: [id number] Admin: 09/24/20 20:34 Dose: 1,011.2 mls/hr Documented by: [id number] Lorazepam (Ativan) 1 mg in 2 mls @ 2 mls/min IV NOW STA Stop: 09/24/20 22:38 Last Admin: 09/24/20 22:48 Dose: 2 mls/min Documented by: [id number] Famotidine (Pepcid 20mg Iv Push) 20 mg in 5 mls @ 2.5 mls/min IV NOW STA Stop: 09/24/20 23:26 Last Admin: 09/25/20 00:15 Dose: 2.5 mls/min Documented by: [id number] Ioversol (Ioversol 100ml) 100 ml IV ONCE ONE Stop: 09/25/20 00:08 Last Admin: 09/25/20 00:07 Dose: 93 ml Documented by: [id number] Metoclopramide HCl (Metoclopramide Hcl Inj 5 Mg/Ml 2 Ml Vial) 5 mg IV ONE ONE Stop: 09/24/20 23:47 Last Admin: 09/25/20 00:15 Dose: 5 mg Documented by: [id number] Potassium Chloride (Potassium Chloride Crtab 20 Meq Tabcr) 40 meq PO NOW STA Stop: 09/24/20 22:51 Last Admin: 09/24/20 23:25 Dose: 40 meq Documented by: [id number] Discharge Plan Visit Data Chief Complaint: Detox Request Stated Complaint: ALCOHOL DETOX ED Provider: Viktor Gamez Discharge Problem: Alcohol abuse Patient Disposition: Admitted As Inpatient Forms Stand Alone Forms: [facility], Suicide Prevention Resources Prescriptions Prescriptions: No Action metoprolol succinate [Toprol XL] 25 mg tablet extended release 24 hr 25 mg PO DAILY RF: 0 gabapentin 300 mg capsule 300 mg PO TID RF: 0 thiamine HCl (vitamin B1) 50 mg tablet 50 mg PO DAILY RF: 0 pregabalin 100 mg capsule 100 mg PO BID RF: 0 Referrals Referrals: Levon Cardenas MD [Primary Care Provider] -
[2020-09-24] MEDS ORDERED: LORazepam 1 MG/2 ML VIAL IV STA (22:37)
[2020-09-24] MEDS ORDERED: GABAPENTIN 600 MG TAB PO STA (22:50)
[2020-09-24] MEDS ORDERED: POTASSIUM CHLORIDE CRTAB 20 MEQ TABCR PO STA (22:50)
[2020-09-24 23:19] LABS: Thyroid Stimulating Hormone 1.45 uIu/ml (0.300-4.500)
[2020-09-24] MEDS ORDERED: FAMOTIDINE 20MG IV PUSH 20 MG/5 ML SYR IV STA (23:25)
--- NOTE | 2020-09-24 23:41 | History & Physical Report ---
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 Lovenox subcu Full code Text document was generated using [employer] voice recognition software. It may contain grammatical or spelling errors. Kindly contact undersigned for clarification of any documentation item in question. History of Present Illness Chief Complaint: Detox Primary Care Provider: Levon Cardenas MD History obtained from patient and records. Medical history significant for HTN, asymptomatic PVCs, ongoing alcohol abuse, history of alcohol withdrawal seizures, lymphoplasmacytic lymphoma, chronic anemia (baseline hemoglobin 12-13). Last confinement March 2016 for alcohol withdrawal. Patient tried to cut down on alcohol intake the last few days. Subsequent achy epigastric discomfort with nausea and emesis. No diarrhea. No fever, no chills, no chest pain, no S OB. Patient presented at the ER for detox. Medical History as above Surgical History : Hernia repair, orthopedic procedure Family History : Heart disease Personal/Social history : Non-smoker, alcohol abuse, unemployed Allergies Allergy/AdvReac Type Severity Reaction Status Date / Time codeine AdvReac Mild VOMITING Verified 09/24/20 20:09 hydrocodone AdvReac Mild VOMIT Verified 09/24/20 20:09 Home Medications Medication Instructions Recorded Confirmed Type metoprolol succinate [Toprol XL] 25 mg PO DAILY 02/17/19 09/24/20 History gabapentin 300 mg PO TID 09/01/20 09/24/20 History pregabalin 100 mg PO BID 09/01/20 09/24/20 History thiamine HCl (vitamin B1) 50 mg PO DAILY 09/01/20 09/24/20 History Past Med/Surg History Medical History (Updated 09/25/20 @ 04:11 by Braulio May MD) Alcohol abuse Hypertension Seizure Surgical History H/O hernia repair Family History Other No significant family history Social History Smoking Status: Never smoker Do You Dip or Chew Tobacco: No; Hx Alcohol Use: Yes Alcohol type: beer Hx Substance Use: Yes Preferred Language: Colombian Communication Ability: Effective Channel Rougher Required: No Beliefs That Will Affect Care: None marital status: Current Living Situation: Other current occupational status: employed Feels Safe at Home: No Assistive Devices: None Review of Systems Review of Systems: As per HPI, all 10 systems reviewed, all other ROS negative Physical Exam Physical Exam: GENERAL: uncomfortable, incessant hiccups, no respiratory distress, looks younger than stated age SKIN: Normal color, warm HEENT: Flushed face, pink palpebral conjunctivae, no ptosis, dry buccal mucosa NECK : Supple, no tenderness CHEST : CTA, no tenderness HEART : RRR, no obvious murmurs ABDOMEN: Some distention, epigastric tenderness EXTREMITIES : No LE swelling/tenderness, no other conspicuous deformities noted NEUROLOGIC : Coherent, no facial asymmetry, no other gross focality Results & Data Results & Data ([facility]) Vital Signs (Past 12 Hours) Vital Signs Temp Pulse Resp BP Pulse Ox 09/24/20 22:50 98 09/24/20 22:40 83 18 96 09/24/20 22:30 80 17 125/95 95 09/24/20 22:20 80 17 95 09/24/20 22:10 81 23 96 09/24/20 22:00 80 21 131/93 96 09/24/20 21:50 81 18 96 09/24/20 21:40 84 19 100 09/24/20 21:30 86 18 132/99 98 09/24/20 21:20 86 17 96 09/24/20 21:13 98 H 17 97 09/24/20 21:00 83 18 140/102 H 95 09/24/20 20:50 89 17 98 09/24/20 20:45 82 14 97 09/24/20 20:26 98 09/24/20 19:38 36.4 C L 98 H 18 165/115 H 98 Laboratory Results Laboratory Results WBC 4.28 K/uL (4.8-10.8) L 09/24/20 20:20 RBC 3.93 M/uL (4.7-6.1) L 09/24/20 20:20 Hgb 13.1 g/dL (14.0-18.0) L 09/24/20 20:20 Hct 37.4 % (42-52) L 09/24/20 20:20 MCV 95.2 fL (80-100) 09/24/20 20:20 MCH 33.3 pg (25-34) 09/24/20 20:20 MCHC 35.0 g/dL (32-36) 09/24/20 20:20 RDW Std Deviation 47.4 fL (36.4-46.3) H 09/24/20 20:20 RDW Coeff of Sherice 13.6 % (11.5-14.5) 09/24/20 20:20 Plt Count 149 K/uL (130-400) 09/24/20 20:20 MPV 9.4 fL (7.4-10.4) 09/24/20 20:20 Immature Gran % (Auto) 0.2 % 09/24/20 20:20 Neut % (Auto) 56.5 % 09/24/20 20:20 Lymph % (Auto) 24.1 % 09/24/20 20:20 [place] % (Auto) 17.3 % 09/24/20 20:20 Eos % (Auto) 1.2 % 09/24/20 20:20 Baso % (Auto) 0.7 % 09/24/20 20:20 Neut # (Auto) 2.42 K/uL (1.4-6.5) 09/24/20 20:20 Lymph # (Auto) 1.03 K/uL (1.2-3.4) L 09/24/20 20:20 [place] # (Auto) 0.74 K/uL (0.11-0.59) H 09/24/20 20:20 Eos # (Auto) 0.05 K/uL (0-0.5) 09/24/20 20:20 Baso # (Auto) 0.03 K/uL (0-0.2) 09/24/20 20:20 Immature Gran # (Auto) 0.01 K/uL (0.00-0.02) 09/24/20 20:20 PT 10.6 Seconds (9.0-12.0) 09/24/20 20:20 INR 1.0 (0.9-1.1) 09/24/20 20:20 Sodium 127 mmol/L (136-145) L 09/24/20 20:20 Potassium 3.4 mmol/L (3.5-5.1) L 09/24/20 20:20 Chloride 90 mmol/L (98-107) L 09/24/20 20:20 Carbon Dioxide 25 mmol/L (21-32) 09/24/20 20:20 Anion Gap 12.0 (3-11) H 09/24/20 20:20 BUN 2 mg/dl (7-18) L 09/24/20 20:20 Creatinine 0.69 mg/dl (0.6-1.4) 09/24/20 20:20 Est Cr Clr Drug Dosing 117.3 ml/min 09/24/20 20:20 Est GFR ( Amer) 127.4 09/24/20 20:20 Est GFR (Non-Af Amer) 109.9 09/24/20 20:20 BUN/Creatinine Ratio 2.9 (10-20) L 09/24/20 20:20 Glucose 86 mg/dl (70-99) 09/24/20 20:20 Osmolality 343 mOsm/kg (280-300) H 09/24/20 20:24 Calcium 9.0 mg/dl (8.5-10.1) 09/24/20 20:20 Magnesium 1.6 mg/dl (1.8-2.4) L 09/24/20 20:20 Total Bilirubin 1.0 mg/dl (0.2-1) 09/24/20 20:20 AST 91 U/L (15-37) H 09/24/20 20:20 ALT 32 U/L (12-78) 09/24/20 20:20 Alkaline Phosphatase 71 U/L (45-117) 09/24/20 20:20 Total Protein 8.0 gm/dl (6.4-8.2) 09/24/20 20:20 Albumin 3.6 gm/dl (3.4-5.0) 09/24/20 20:20 Globulin 4.4 gm/dl (2.5-4.0) H 09/24/20 20:20 Albumin/Globulin Ratio 0.8 (0.9-2) L 09/24/20 20:20 Lipase 342 U/L (73-393) 09/24/20 20:20 TSH 1.450 uIu/ml (0.300-4.500) 09/24/20 20:20 Ethyl Alcohol mg/dL 324.2 mg/dl (0-3) H 09/24/20 20:20 COVID-19 Eval Order Covid19 [facility] 09/24/20 21:15 SARS-CoV-2, RNA, NAAT NEGATIVE (NEGATIVE) 09/24/20 21:[address] abdomen pelvis initial read: Thickening of distal esophagus and small hiatal hernia. Esophagitis versus infiltrative lesion. Appendix not identified. Nonobstructive bowel gas pattern. Fatty liver. Small low-attenuation foci in left kidney. Underdistended bladder. Small fat-containing umbilical hernia. Chest x-ray as per my interpretation no infiltrate EKG as per my interpretation : Rate 85, NSR, normal axis, T wave inversion septal leads
[2020-09-24] MEDS ORDERED: METOCLOPRAMIDE HCL INJ 5 MG/ML 2 ML VIAL IV ONE (23:46)
[2020-09-24 23:59] LABS: Appearance Urine Clear (Clear); Bilirubin Urine Negative (Negative); Blood Urine Negative (Negative); Color Urine Yellow; Glucose Urine UA Negative (Negative); Ketones Urine Negative (Negative); Leukocyte Esterase Urine Negative (Negative); Nitrite Urine Negative (Negative); Protein Urine Negative (Negative); Specific Gravity Urine 1.005 (1.000-1.030); Urobilinogen Urine Negative (Negative); pH Urine 6.5 (4.5-7.5)
[2020-09-25] MEDS ORDERED: OPTIRAY 320 100ml IV ONE (00:07)
[2020-09-25 00:20] LABS: Amphetamines+Metham, Urine Neg (Neg); Barbiturates, Urine Neg (Neg); Benzodiazepine, Urine Neg (Neg); Cocaine, Urine Neg (Neg); MDMA (Ecstacy), Urine Neg (Neg); Methadone, Urine Neg (Neg); Opiate, Urine Neg (Neg); Phencyclidine, Urine Neg (Neg)
[2020-09-25] MEDS ORDERED: PROMETHAZINE HCL 6.25 MG in SODIUM CHLORIDE 0.9% 50 ML IV PRN (00:49)
[2020-09-25] MEDS ORDERED: LORazepam 3 MG/6 ML VIAL IV PRN (00:49)
[2020-09-25] MEDS ORDERED: oxyCODONE HCL IR 5 MG TAB (IMMEDIATE RELEASE) PO PRN (00:49)
[2020-09-25] MEDS ORDERED: ATIVAN IV ALCOHOL WITHDRAWL IV PRN (00:49)
[2020-09-25] MEDS ORDERED: LORazepam 1 MG/2 ML VIAL IV PRN ×2 (00:49)
[2020-09-25] MEDS ORDERED: LORazepam 2 MG/4 ML VIAL IV PRN (00:49)
[2020-09-25] MEDS ORDERED: ACETAMINOPHEN 325 MG TAB PO PRN ×2 (00:49→05:31)
[2020-09-25] MEDS: MAGNESIUM SULFATE / D5W 1 GM/100 ML BAG IV SCH ×2 (01:22→04:00)
[2020-09-25] MEDS ORDERED: Nursing to Pharmacy Communication SCH (01:30)
[2020-09-25] MEDS: FOLIC ACID 1 MG TAB PO SCH ×2 (04:01→07:52)
[2020-09-25 06:22] LABS: Basophils # (auto) 0.02 K/uL (0-0.2); Basophils % (auto) 0.4 %; Eosinophils # (auto) 0.14 K/uL (0-0.5); Eosinophils % (auto) 2.6 %; Hematocrit (blood only) 37.2 % (42-52); Hemoglobin 13.1 g/dL (14.0-18.0); Immature Granulocytes # (auto) 0.01 K/uL (0.00-0.02); Immature Granulocytes % (auto) 0.2 %; Lymphocytes # (auto) 0.99 K/uL (1.2-3.4); Lymphocytes % (auto) 18.5 %; Mean Corpuscular Hemoglobin 33.8 pg (25-34); Mean Corpuscular Hgb Conc 35.2 g/dL (32-36); Mean Corpuscular Volume 95.9 fL (80-100); Mean Platelet Volume 9.7 fL (7.4-10.4); Monocytes # (auto) 1.17 K/uL (0.11-0.59); Monocytes % (auto) 21.9 %; Neutrophils # (auto) 3.02 K/uL (1.4-6.5); Neutrophils % (auto) 56.4 %; Platelet Count 158 K/uL (130-400); RDW Coefficient of Variation 13.9 % (11.5-14.5); RDW Standard Deviation 48.7 fL (36.4-46.3); Red Blood Count 3.88 M/uL (4.7-6.1); White Blood Count 5.35 K/uL (4.8-10.8)
[2020-09-25 07:02] LABS: Albumin Globulin Ratio 0.8 (0.9-2); Albumin Level 3.5 gm/dl (3.4-5.0); Calcium 8.7 mg/dl (8.5-10.1); Creatinine Clr Calc Pharmacy 117.8 ml/min; Est GFR (African American) 128.2; Est GFR (Non-African American) 110.6; Globulin 4.3 gm/dl (2.5-4.0); Magnesium 2.9 mg/dl (1.8-2.4); Potassium 3.8 mmol/L (3.5-5.1); Total Protein 7.8 gm/dl (6.4-8.2)
--- NOTE | 2020-09-25 07:41 | XRay Report ---
XR chest 1V portable CLINICAL HISTORY: hyponatremia COMPARISON STUDY: Chest CT June 22, 2019. Chest radiograph August 22, 2020. FINDINGS: Lung volumes are normal. Lungs are clear. Sensitivity for detection of pulmonary nodules is diminished given radiographic technique. There is no pneumothorax or pleural effusion. Cardiac size is normal. Mediastinal contours are normal. There is no evidence for pulmonary edema. IMPRESSION: No acute cardiopulmonary findings. ACT 112: Negative or not required by law. Electronically signed by: Lobo Bautista M.D. 09/25/2020 7:40 AM
[2020-09-25] MEDS: GABAPENTIN 300 MG CAP PO SCH ×2 (07:53→13:21)
[2020-09-25] MEDS ORDERED: SODIUM CHLOR 0.45% + 20MEQ KCL 20 MEQ/1,000 ML BAG IV ONE (08:00)
[2020-09-25] MEDS ORDERED: LORazepam 0.5 MG/1 ML VIAL IV PRN (08:08)
[2020-09-25] MEDS ORDERED: chlordiazePOXIDE ALCOHOL WITHDRAWL 50MG PO STA (08:08)
--- NOTE | 2020-09-25 08:25 | CT Scan Report ---
ABDOMEN AND PELVIS CT WITH IV CONTRAST CT DOSE: 270.66 mGy.cm HISTORY: Generalized abdominal pain. TECHNIQUE: Multiaxial CT images of the abdomen and pelvis were performed following the use of intrave nous contrast. A dose lowering technique was utilized adhering to the principles of ALARA. COMPARISON STUDY: Abdomen and pelvis CT 05/18/2011. FINDINGS: The lung bases are clear. No pneumoperitoneum. No pneumatosis. No suspicious lytic or blast ic osseous lesions. There is a small hiatus hernia with focal moderate thickening of the distal esoph martín. Small fat-containing umbilical hernia. Hepatic steatosis. The spleen, adrenal glands, pancreas, gallbladder within normal limits. There are 2 subcentimeter hypodense lesions within the left kidney . These are technically too small to characterize but statistically represent cysts. No renal stones or hydronephrosis. No retroperitoneal lymphadenopathy. Normal caliber abdominal aorta. Moderate bladd er wall thickening, unchanged. Prostate gland is mildly enlarged. No bowel wall thickening or obstruc tion. The visualized appendix is unremarkable. IMPRESSION: 1. Hepatic steatosis. 2. Small hiatus hernia with focal moderate thickening of the distal esophagus. This could be due to a n esophagitis or esophageal lesion. Follow-up nonemergent endoscopy recommended for further evaluatio n. 3. No additional bowel wall thickening or obstruction. 4. The visualized appendix is unremarkable. ACT 112: Positive. There are findings on this exam that require communication between the performing entity and the patient following Patient Test Result Information Act ([place] Act 112) guidelines. Electronically signed by: Jamison Doshi M.D. 09/25/2020 8:24 AM
[2020-09-25] MEDS ORDERED: ENOXAPARIN INJ 40 MG/0.4 ML SYR SQ SCH (09:00)
[2020-09-25] MEDS ORDERED: PANTOprazole 40 MG TAB PO SCH (09:00)
[2020-09-25] MEDS ORDERED: METOPROLOL SUCC 25MG EXT REL TAB PO SCH (09:00)
[2020-09-25] MEDS ORDERED: PREGABALIN 100 MG CAP PO SCH (09:00)
[2020-09-25] MEDS ORDERED: THIAMINE HCL 50 MG TABLET PO SCH (09:00)
[2020-09-25] MEDS ORDERED: MULTIVITAMIN TAB PO SCH (09:00)
[2020-09-25] MEDS: chlordiazePOXIDE HCl 25 MG CAP PO SCH ×2 (10:00→14:17)
--- NOTE | 2020-09-25 10:15 | Electrocardiogram Report ---
Test Reason : Blood Pressure : / mmHG Vent. Rate : 085 BPM Atrial Rate : 085 BPM P-R Int : 186 ms QRS Dur : 098 ms QT Int : 404 ms P-R-T Axes : 062 066 074 degrees QTc Int : 480 ms Normal sinus rhythm with sinus arrhythmia Prolonged QT Abnormal ECG When compared with ECG of 22-AUG-2020 18:58, Premature ventricular complexes are no longer Present Confirmed by Jose Barber ([id number]) on 09/25/2020 10:15:00 AM Referred By: REFERRED SELF Confirmed By:Dg Barber
[2020-09-25] MEDS ORDERED: LIDOCAINE 5% 1 PATCH TD SCH (10:30)
[2020-09-25] MEDS ORDERED: METOPROLOL SUCC 25MG EXT REL TAB PO ONE (10:45)
--- NOTE | 2020-09-25 11:24 | CT Scan Report ---
CT OF THE HEAD WITHOUT CONTRAST CLINICAL HISTORY: L arm numbness, r/o CVA COMPARISON STUDY: Head CT September 02, 2020. CT DOSE: 788.63 mGycm TECHNIQUE: Helical axial images of the head were obtained without IV contrast. Automated exposure con trol was utilized for the study. A dose lowering technique was utilized adhering to the principles o f ALARA. FINDINGS: No acute intracranial hemorrhage, midline shift or mass effect is present. The ventricular system is unremarkable. The basal cisterns are patent. No extra-axial collections are present. Mild w eugene matter hypodensities are unchanged and suggest small vessel disease. There are no findings to zaragoza ggest acute dural sinus thrombosis or acute territorial infarct. No significant calvarial abnormaliti es are present. Visualized portions of the sinuses and mastoid air cells are clear. IMPRESSION: No acute intracranial findings. ACT 112: Negative or not required by law. Electronically signed by: Lobo Bautista M.D. 09/25/2020 11:23 AM
--- NOTE | 2020-09-25 14:52 | Hospitalist Progress Note ---
Date of Service September 25, 2020 Assessment & Plan (1) Hyponatremia: Multifactorial: Clinical dehydration from emesis Alcohol abuse -- admitted with Na of 127 -- given D5 1/2 NSS Na improved to 137 -- asymptomatic Alcoholic Intoxication -- last drink 09/24/20 -- started on Librium taper for alcohol withdrawal protocol 09/25/2020 with PRN Ativan -- continue Librium taper -- [facility] Hypokalemia secondary to emesis -- 3.4 on admission -- replaced resolved HTN, Stable asymptomatic PVCs -- CT head: no acute process, small vessel changes -- continue Metoprolol XL 50mg BID consider starting ASA once cleared by GI re: esophagitis close outpatient ff up Left Upper Arm numbness, Chronic Left Shoulder Blade pain -- CT head: small vessel changes, no acute CVA -- per [facility], patient has Cervical Radiculopathy, Rotator Cuff tendinitis needs to ff up with Sports Chiropractor at [facility] -- Lidoderm patch History of alcohol withdrawal seizures -- currently off Keppra AED Rx as per patient preference Lymphoplasmacytic lymphoma -- patient follows with [facility]ology Chronic anemia -- hemoglobin at baseline Esophagitis versus Esophageal lesion -- CT abdomen/pelvis: 1. Hepatic steatosis. 2. Small hiatus hernia with focal moderate thickening of the distal esophagus. This could be due to an esophagitis or esophageal lesion. Follow-up nonemergent endoscopy recommended for further evaluation. -- start Protonix 40mg po daily -- will need outpatient GI referral in 1-2 weeks DVT prophylaxis -- Lovenox subcutaneous Full code Disposition patient agreeable to transition to [facility] Rehab ff up with PCP in 1 week after discharge from Alcohol rehab needs to be referred to GI clinic in 1-2 weeks Admission and Anticipated Discharge Date Admission Date: September 24, 2020 Subjective ff up for alcoholic intoxication, hyponatremia, etc seen resting in bed, alert, oriented x 3, not in distress, comfortable, watching TV states he feels better that yesterday minimal tremors, and anxiety but no sweating, hallucinations, confusion denies headache, dizziness, chest pain, dyspnea, palpitations, abdominal pain, nausea/vomiting reports chronic left upper arm numbness, left shoulder blade pain and bilateral feet tingling sensation no other symptoms Review of Systems Review of Systems: All systems reviewed & are unremarkable except as noted in Subjective Physical Exam Physical Exam: General- oriented x 3, not in distress, speaks in sentences with no effort or accessory muscle use Head- atraumatic Eyes- PERRL, EOMI, anicteric ENT- oropharynx clear Neck- supple, no JVD, no adenopathy, no thyromegaly; carotids +2/2, no bruits appreciated Lungs- clear to auscultation bilaterally, no rales/wheezes Heart- normal rate, regular rhythm; no murmur, no gallop, no rub appreciated Abdomen- normal bowel sounds, nondistended, soft, nontender, no masses or h epatosplenomegaly Extremities- no pretibial edema, no calf tenderness; peripheral pulses intact Neuro- alert, oriented x 3; CN 2-12 grossly intact; motor 5/5 bilaterally;sensation 100% on all upper extremities, poor sensation 50% bilateral feet; no other gross focal neurologic deficits Skin- warm & dry Results & Data Results & Data ([facility]) Vital Signs (Past 12 Hours) Vital Signs Temp Pulse Resp BP Pulse Ox 09/25/20 11:29 36.9 C 99 H 20 134/92 96 09/25/20 04:09 36.6 C 96 H 18 134/85 97 Laboratory Results Current Inpatient Medications Acetaminophen (Acetaminophen 325 Mg Tab) 325 mg PO Q6H PRN PRN Reason: Mild Pain Stop: 10/25/20 05:30 Chlordiazepoxide HCl (Chlordiazepoxide Hcl 25 Mg Cap) 50 mg PO Q6H BRUNILDA; Taper Stop: 09/28/20 08:59 Last Admin: 09/25/20 14:17 Dose: 50 mg Documented by: Chlordiazepoxide HCl (Chlordiazepoxide Hcl 10 Mg Cap) 10 mg PO Q12H BRUNILDA Stop: 09/28/20 21:01 Enoxaparin Sodium (Enoxaparin Inj 40 Mg/0.4 Ml Syr) 40 mg SQ QAM BRUNILDA Stop: 10/25/20 08:59 Last Admin: 09/25/20 07:55 Dose: 40 mg Documented by: Folic Acid (Folic Acid 1 Mg Tab) 1 mg PO QAM [facility] Stop: 10/25/20 00:48 Last Admin: 09/25/20 07:52 Dose: 1 mg Documented by: Gabapentin (Gabapentin 300 Mg Cap) 300 mg PO TID [facility] Stop: 10/25/20 08:59 Last Admin: 09/25/20 13:21 Dose: 300 mg Documented by: Lorazepam (Ativan) 1 mg in 2 mls @ 2 mls/min IV UD PRN; Protocol PRN Reason: EtOH Withdrawl AWSS Score 6,7 Stop: 10/25/20 00:48 Last Admin: 09/25/20 14:32 Dose: 2 mls/min Documented by: Lorazepam (Ativan) 2 mg in 4 mls @ 4 mls/min IV UD PRN; Protocol PRN Reason: EtOH Withdrawl AWSS Score 8,9 Stop: 10/25/20 00:48 Lorazepam (Ativan) 3 mg in 6 mls @ 4 mls/min IV ONCE PRN; Protocol PRN Reason: EtOH Withdrawl AWSS Score >=10 Stop: 10/25/20 00:48 Lorazepam (Ativan) 1 mg in 2 mls @ 0.5 mls/min IV Q10M PRN PRN Reason: seizures Stop: 10/25/20 00:48 Promethazine HCl 6.25 mg/ (Sodium Chloride) 50.25 mls @ 201 mls/hr IV Q6H PRN PRN Reason: Nausea And Vomiting Stop: 10/25/20 00:48 Lorazepam (Ativan) 0.5 mg in 1 mls @ 1 mls/min IV Q4H PRN PRN Reason: Anxiety Stop: 10/25/20 08:07 Lidocaine (Lidocaine 5% 1 Patch) 1 patch TD [facility] Stop: 10/25/20 10:29 Last Admin: 09/25/20 13:21 Dose: 1 patch Documented by: Metoprolol Succinate (Metoprolol Succ 50mg Ext Rel Tab) 50 mg PO DAILY [facility] Stop: 10/26/20 08:59 Miscellaneous (Remove Lidoderm Patch) 1 ea N/A DAILY@2100 [facility] Stop: 10/25/20 20:59 Multivitamins (Multivitamin Tab) 1 tab PO [facility] Stop: 10/25/20 08:59 Last Admin: 09/25/20 07:52 Dose: 1 tab Documented by: Pantoprazole Sodium (Pantoprazole 40 Mg Tab) 40 mg PO [facility] Stop: 10/25/20 08:59 Last Admin: 09/25/20 10:01 Dose: 40 mg Documented by: Pregabalin (Pregabalin 100 Mg Cap) 100 mg PO BID BRUNILDA Stop: 10/25/20 08:59 Last Admin: 09/25/20 10:00 Dose: 100 mg Documented by: Thiamine HCl (Thiamine Hcl 50 Mg Tablet) 50 mg PO DAILY BRUNILDA Stop: 10/25/20 08:59 Last Admin: 09/25/20 07:52 Dose: 50 mg Documented by: Diagnostic Findings Laboratory Results - last 24 hr 09/24/20 09/24/20 09/24/20 20:20 20:20 20:20 WBC RBC Hgb Hct MCV MCH MCHC RDW Std Deviation RDW Coeff of Sherice Plt Count MPV Immature Gran % (Auto) Neut % (Auto) Lymph % (Auto) [place] % (Auto) Eos % (Auto) Baso % (Auto) Neut # (Auto) Lymph # (Auto) [place] # (Auto) Eos # (Auto) Baso # (Auto) Immature Gran # (Auto) PT 10.6 INR 1.0 Sodium 127 L Potassium 3.4 L Chloride 90 L Carbon Dioxide 25 Anion Gap 12.0 H BUN 2 L Creatinine 0.69 Est Cr Clr Drug Dosing 117.3 Est GFR ( Amer) 127.4 Est GFR (Non-Af Amer) 109.9 BUN/Creatinine Ratio 2.9 L Glucose 86 Osmolality Calcium 9.0 Magnesium 1.6 L Total Bilirubin 1.0 AST 91 H ALT 32 Alkaline Phosphatase 71 Total Protein 8.0 Albumin 3.6 Globulin 4.4 H Albumin/Globulin Ratio 0.8 L Lipase 342 TSH 1.450 Urine Color Urine Appearance Urine pH Ur Specific [place] Urine Protein Urine Glucose (UA) Urine Ketones Urine Blood Urine Nitrite Urine Bilirubin Urine Urobilinogen Ur Leukocyte Esterase Urine Osmolality Ur Random Sodium Urine Opiates Screen Ur Methadone, Qual Urine Barbiturates Ur Phencyclidine (PCP) U Amphetamin/Meth Scrn MDMA (Ecstasy) Screen U Benzodiazepines Scrn Ur Cocaine Metabolite U Marijuana (THC) Screen Ethyl Alcohol mg/dL 324.2 H COVID-19 Eval Order SARS-CoV-2, RNA, NAAT 09/24/20 09/24/20 09/24/20 20:20 20:24 21:15 WBC 4.28 L RBC 3.93 L Hgb 13.1 L Hct 37.4 L MCV 95.2 MCH 33.3 MCHC 35.0 RDW Std Deviation 47.4 H RDW Coeff of Sherice 13.6 Plt Count 149 MPV 9.4 Immature Gran % (Auto) 0.2 Neut % (Auto) 56.5 Lymph % (Auto) 24.1 [place] % (Auto) 17.3 Eos % (Auto) 1.2 Baso % (Auto) 0.7 Neut # (Auto) 2.42 Lymph # (Auto) 1.03 L [place] # (Auto) 0.74 H Eos # (Auto) 0.05 Baso # (Auto) 0.03 Immature Gran # (Auto) 0.01 PT INR Sodium Potassium Chloride Carbon Dioxide Anion Gap BUN Creatinine Est Cr Clr Drug Dosing Est GFR ( Amer) Est GFR (Non-Af Amer) BUN/Creatinine Ratio Glucose Osmolality 343 H Calcium Magnesium Total Bilirubin AST ALT Alkaline Phosphatase Total Protein Albumin Globulin Albumin/Globulin Ratio Lipase TSH Urine Color Urine Appearance Urine pH Ur Specific [place] Urine Protein Urine Glucose (UA) Urine Ketones Urine Blood Urine Nitrite Urine Bilirubin Urine Urobilinogen Ur Leukocyte Esterase Urine Osmolality Ur Random Sodium Urine Opiates Screen Ur Methadone, Qual Urine Barbiturates Ur Phencyclidine (PCP) U Amphetamin/Meth Scrn MDMA (Ecstasy) Screen U Benzodiazepines Scrn Ur Cocaine Metabolite U Marijuana (THC) Screen Ethyl Alcohol mg/dL COVID-19 Eval Order Covid19 [facility]Now [facility] SARS-CoV-2, RNA, NAAT 09/24/20 09/24/20 09/24/20 21:15 23:50 23:50 WBC RBC Hgb Hct MCV MCH MCHC RDW Std Deviation RDW Coeff of Sherice Plt Count MPV Immature Gran % (Auto) Neut % (Auto) Lymph % (Auto) [place] % (Auto) Eos % (Auto) Baso % (Auto) Neut # (Auto) Lymph # (Auto) [place] # (Auto) Eos # (Auto) Baso # (Auto) Immature Gran # (Auto) PT INR Sodium Potassium Chloride Carbon Dioxide Anion Gap BUN Creatinine Est Cr Clr Drug Dosing Est GFR ( Amer) Est GFR (Non-Af Amer) BUN/Creatinine Ratio Glucose Osmolality Calcium Magnesium Total Bilirubin AST ALT Alkaline Phosphatase Total Protein Albumin Globulin Albumin/Globulin Ratio Lipase TSH Urine Color Yellow Urine Appearance Clear Urine pH 6.5 Ur Specific [place] 1.005 Urine Protein Negative Urine Glucose (UA) Negative Urine Ketones Negative Urine Blood Negative Urine Nitrite Negative Urine Bilirubin Negative Urine Urobilinogen Negative Ur Leukocyte Esterase Negative Urine Osmolality Ur Random Sodium Urine Opiates Screen Neg Ur Methadone, Qual Neg Urine Barbiturates Neg Ur Phencyclidine (PCP) Neg U Amphetamin/Meth Scrn Neg MDMA (Ecstasy) Screen Neg U Benzodiazepines Scrn Neg Ur Cocaine Metabolite Neg U Marijuana (THC) Screen Neg Ethyl Alcohol mg/dL COVID-19 Eval Order SARS-CoV-2, RNA, NAAT NEGATIVE 09/24/20 09/24/20 09/25/20 23:50 23:50 05:41 WBC 5.35 RBC 3.88 L Hgb 13.1 L Hct 37.2 L MCV 95.9 MCH 33.8 MCHC 35.2 RDW Std Deviation 48.7 H RDW Coeff of Sherice 13.9 Plt Count 158 MPV 9.7 Immature Gran % (Auto) 0.2 Neut % (Auto) 56.4 Lymph % (Auto) 18.5 [place] % (Auto) 21.9 Eos % (Auto) 2.6 Baso % (Auto) 0.4 Neut # (Auto) 3.02 Lymph # (Auto) 0.99 L [place] # (Auto) 1.17 H Eos # (Auto) 0.14 Baso # (Auto) 0.02 Immature Gran # (Auto) 0.01 PT INR Sodium Potassium Chloride Carbon Dioxide Anion Gap BUN Creatinine Est Cr Clr Drug Dosing Est GFR ( Amer) Est GFR (Non-Af Amer) BUN/Creatinine Ratio Glucose Osmolality Calcium Magnesium Total Bilirubin AST ALT Alkaline Phosphatase Total Protein Albumin Globulin Albumin/Globulin Ratio Lipase TSH Urine Color Urine Appearance Urine pH Ur Specific [place] Urine Protein Urine Glucose (UA) Urine Ketones Urine Blood Urine Nitrite Urine Bilirubin Urine Urobilinogen Ur Leukocyte Esterase Urine Osmolality 175 L Ur Random Sodium 35 Urine Opiates Screen Ur Methadone, Qual Urine Barbiturates Ur Phencyclidine (PCP) U Amphetamin/Meth Scrn MDMA (Ecstasy) Screen U Benzodiazepines Scrn Ur Cocaine Metabolite U Marijuana (THC) Screen Ethyl Alcohol mg/dL COVID-19 Eval Order SARS-CoV-2, RNA, NAAT 09/25/20 09/25/20 05:41 11:53 WBC RBC Hgb Hct MCV MCH MCHC RDW Std Deviation RDW Coeff of Sherice Plt Count MPV Immature Gran % (Auto) Neut % (Auto) Lymph % (Auto) [place] % (Auto) Eos % (Auto) Baso % (Auto) Neut # (Auto) Lymph # (Auto) [place] # (Auto) Eos # (Auto) Baso # (Auto) Immature Gran # (Auto) PT INR Sodium 137 D 136 Potassium 3.8 Chloride 102 Carbon Dioxide 29 Anion Gap 6.0 BUN 2 L Creatinine 0.68 Est Cr Clr Drug Dosing 117.8 Est GFR ( Amer) 128.2 Est GFR (Non-Af Amer) 110.6 BUN/Creatinine Ratio 3.0 L Glucose 71 Osmolality Calcium 8.7 Magnesium 2.9 H Total Bilirubin 1.0 AST 82 H ALT 33 Alkaline Phosphatase 67 Total Protein 7.8 Albumin 3.5 Globulin 4.3 H Albumin/Globulin Ratio 0.8 L Lipase TSH Urine Color Urine Appearance Urine pH Ur Specific [place] Urine Protein Urine Glucose (UA) Urine Ketones Urine Blood Urine Nitrite Urine Bilirubin Urine Urobilinogen Ur Leukocyte Esterase Urine Osmolality Ur Random Sodium Urine Opiates Screen Ur Methadone, Qual Urine Barbiturates Ur Phencyclidine (PCP) U Amphetamin/Meth Scrn MDMA (Ecstasy) Screen U Benzodiazepines Scrn Ur Cocaine Metabolite U Marijuana (THC) Screen Ethyl Alcohol mg/dL COVID-19 Eval Order SARS-CoV-2, RNA, NAAT
--- NOTE | 2020-09-25 15:45 | Discharge Summary ---
Date of Service September 25, 2020 Admission HPI Per Admitting Provider History obtained from patient and records. Medical history significant for HTN, asymptomatic PVCs, ongoing alcohol abuse, history of alcohol withdrawal seizures, lymphoplasmacytic lymphoma, chronic anemia (baseline hemoglobin 12-13). Last confinement March 2016 for alcohol withdrawal. Patient tried to cut down on alcohol intake the last few days. Subsequent achy epigastric discomfort with nausea and emesis. No diarrhea. No fever, no chills, no chest pain, no S OB. Patient presented at the ER for detox. Medical History as above Surgical History : Hernia repair, orthopedic procedure Family History : Heart disease Personal/Social history : Non-smoker, alcohol abuse, unemployed Admission Exam Per Admitting Provider GENERAL: uncomfortable, incessant hiccups, no respiratory distress, looks younger than stated age SKIN: Normal color, warm HEENT: Flushed face, pink palpebral conjunctivae, no ptosis, dry buccal mucosa NECK : Supple, no tenderness CHEST : CTA, no tenderness HEART : RRR, no obvious murmurs ABDOMEN: Some distention, epigastric tenderness EXTREMITIES : No LE swelling/tenderness, no other conspicuous deformities noted NEUROLOGIC : Coherent, no facial asymmetry, no other gross focality Principal Diagnosis ALCOHOL INTOXICATION HYPONATREMIA Discharge Exam General- oriented x 3, not in distress, speaks in sentences with no effort or accessory muscle use Head- atraumatic Eyes- PERRL, EOMI, anicteric ENT- oropharynx clear Neck- supple, no JVD, no adenopathy, no thyromegaly; carotids +2/2, no bruits appreciated Lungs- clear to auscultation bilaterally, no rales/wheezes Heart- normal rate, regular rhythm; no murmur, no gallop, no rub appreciated Abdomen- normal bowel sounds, nondistended, soft, nontender, no masses or hepatosplenomegaly Extremities- no pretibial edema, no calf tenderness; peripheral pulses intact Neuro- alert, oriented x 3; CN 2-12 grossly intact; motor 5/5 bilaterally;sensation 100% on all upper extremities, poor sensation 50% bilateral feet; no other gross focal neurologic deficits Skin- warm & dry Discharge Data Allergies Allergy/AdvReac Type Severity Reaction Status Date / Time codeine AdvReac Mild VOMITING Verified 09/24/20 20:09 hydrocodone AdvReac Mild VOMIT Verified 09/24/20 20:09 Consultations 09/24/20 22:37 ED Decision to Admit Stat 09/25/20 00:49 Consult Case Management - Discharge Planning Routine Ordered Studies 09/24/20 23:25 CT abd pelvis IV con only Urgent FINDINGS: The lung bases are clear. No pneumoperitoneum. No pneumatosis. No suspicious lytic or blastic osseous lesions. There is a small hiatus hernia with focal moderate thickening of the distal esophagus. Small fat-containing umbilical hernia. Hepatic steatosis. The spleen, adrenal glands, pancreas, gall bladder within normal limits. There are 2 subcentimeter hypodense lesions within the left kidney. These are technically too small to characterize but statistically represent cysts. No renal stones or hydronephrosis. No retroperitoneal lymphadenopathy. Normal caliber abdominal aorta. Moderate bladder wall thickening, unchanged. Prostate gland is mildly enlarged. No bowel wall thickening or obstruction. The visualized appendix is unremarkable. IMPRESSION: 1. Hepatic steatosis. 2. Small hiatus hernia with focal moderate thickening of the distal esophagus. This could be due to an esophagitis or esophageal lesion. Follow-up nonemergent endoscopy recommended for further evaluation. 3. No additional bowel wall thickening or obstruction. 4. The visualized appendix is unremarkable. 09/25/20 10:21 CT head/brain wo con Routine FINDINGS: No acute intracranial hemorrhage, midline shift or mass effect is present. The ventricular system is unremarkable. The basal cisterns are patent. No extra-axial collections are present. Mild white matter hypodensities are unchanged and suggest small vessel disease. There are no findings to suggest acute dural sinus thrombosis or acute territorial infarct. No significant calvarial abnormalities are present. Visualized portions of the sinuses and mastoid air cells are clear. IMPRESSION: No acute intracranial findings. Hospital Course (1) Hyponatremia: Multifactorial: Clinical dehydration from emesis Alcohol abuse -- admitted with Na of 127 -- given D5 1/2 NSS Na improved to 137 -- asymptomatic Alcoholic Intoxication -- last drink 09/24/20 -- started on Librium taper for alcohol withdrawal protocol 09/25/2020 with PRN Ativan -- continue Librium taper -- transition to [facility] Hypokalemia secondary to emesis -- 3.4 on admission -- replaced resolved HTN, Stable asymptomatic PVCs -- CT head: no acute process, small vessel changes -- continue Metoprolol XL 50mg BID consider starting ASA once cleared by GI re: esophagitis close outpatient ff up Left Upper Arm numbness, Chronic Left Shoulder Blade pain -- CT head: small vessel changes, no acute CVA -- per [facility], patient has Cervical Radiculopathy, Rotator Cuff tendinitis needs to ff up with Sports Chiropractor at [facility] -- Lidoderm patch History of alcohol withdrawal seizures -- currently off Keppra AED Rx as per patient preference Lymphoplasmacytic lymphoma -- patient [facility] with [facility] Chronic anemia -- hemoglobin at baseline Esophagitis versus Esophageal lesion -- CT abdomen/pelvis: 1. Hepatic steatosis. 2. Small hiatus hernia with focal moderate thickening of the distal esophagus. This could be due to an esophagitis or esophageal lesion. Follow-up nonemergent endoscopy recommended for further evaluation. -- start Protonix 40mg po daily -- will need outpatient GI referral in 1-[address] Abd/Pelvis: --Moderate bladder wall thickening, unchanged. Prostate gland is mildly enlarged. -- outpatient work up and follow up DVT prophylaxis -- Lovenox subcutaneous Full code Disposition patient agreeable to transition to Alcohol Rehab ff up with PCP in 1 week after discharge from Alcohol rehab needs to be referred to GI clinic in 1-2 weeks Total Time Total Time Spent Total Time Spent (In Minutes): 60 minutes Discharge Plan Discharge Items Patient Disposition: Drug & Alcohol Rehab Reason For Visit: HYPONATREMIA Discharge Diagnosis: ALCOHOL INTOXICATION HYPONATREMIA Activity: Resume your previous activity Activity Comment: FALL PRECAUTIONS Lifting: Wait until after follow-up appointment Exercise/Sports: Wait until after follow-up appointment Driving/Machine Use: NO DRIVING Non-emergency contact: Primary Care Provider Call non-emergency contact if: you have any medication questions, your symptoms worsen, your pain is not controlled, your pain is worsening, your pain is unusual for you, your pain is concerning for you and you have a fever Follow-up/Referrals: Levon Cardenas MD [Primary Care Provider] - Diet: Heart Healthy Addtl Attending Provider Instructions: NEW MEDICATIONS: LIBRIUM TAPER- for alcohol withdrawal PROTONIX- for esophagitis LIDODERM PATCH- left scapular pain YOU NEED TO ESTABLISH CARE WITH A GASTROINTESTINAL SPECIALIST FOR FURTHER WORK UP OF ESOPHAGITIS, POSSIBLE ESOPHAGEAL LESION, AND ENDOSCOPY. DR. CARDENAS CAN HELP YOU ARRANGE AN APPOINTMENT WITH THE GI CLINIC. FOLLOW UP WITH DR. CARDENAS 1 WEEK AFTER BEING DISCHARGED FROM ALCOHOL REHAB. PLEASE REFER TO ACCOMPANYING HOSPITAL DISCHARGE SUMMARY FOR FURTHER DETAILS. Pending Studies at Discharge: No Stand-Alone Forms: [facility] Sk[facility] Items Patient informed of condition?: Yes DNR: No Discharge Level of Care: Other Communicable Disease: No Discharge Prognosis: Improving Lines: None Urinary Catheter: No Medications and DC Order Prescriptions: New metoprolol succinate 50 mg Tablet Extended Release 24 Hr 50 mg PO DAILY Qty: 30 RF: 0 chlordiazepoxide HCl 10 mg Capsule 10 mg PO Q12H Qty: 2 RF: 0 chlordiazepoxide HCl 25 mg Capsule 50 mg PO Q6H Qty: 2 RF: 0 pantoprazole 40 mg Tablet,Delayed Release (Dr/Ec) 40 mg PO QAM Qty: 30 RF: 0 multivitamin [Daily-Clover] Tablet 1 tab PO QAM Qty: 30 RF: 0 lidocaine 5 % Adhesive Patch,Medicated 1 patch transdermal QAM Qty: 10 RF: 0 folic acid 1 mg Tablet 1 mg PO QAM Qty: 14 RF: 0 Continued gabapentin 300 mg capsule 300 mg PO TID RF: 0 thiamine HCl (vitamin B1) 50 mg tablet 50 mg PO DAILY RF: 0 pregabalin 100 mg capsule 100 mg PO BID RF: 0 Discontinued metoprolol succinate [Toprol XL] 25 mg tablet extended release 24 hr 25 mg PO DAILY RF: 0 Discharge Orders: Discharge Order (Routine); Ordered 09/25/20 Ordered By: Clement Swift Admission Data Admit Date/Time: 09/24/20 23:43 Attending Provider: Clement Swift Admit Provider: Braulio May Primary Care Provider: Levon Cardenas Other Providers: Braulio May Other Interventions: Discharge Summary Assessment (RN) Last Done: 09/25/20 16:27
[2020-09-26] MEDS ORDERED: METOPROLOL SUCC 50MG EXT REL TAB PO SCH (09:00)
== END 2020-09-25 17:00 | disposition other institution (70) | DRG 897 ==
LOC: ED 19:30 → INTOOBSV 23:43 → 2W 23:43

== ENCOUNTER 2023-07-11 17:48 | Inpatient (IN) ==
--- NOTE | 2023-07-11 18:20 | ED Triage Note ---
Date of Service July 11, 2023 History of Present Illness This patient was briefly evaluated while in triage. An abbreviated physical exam was performed. This patient is a 53-year-old Male who presents to the ED for evaluation of vomiting this am, and back of right calf hurts. R foot went numb earlier. Headache, heart racing. Sore throat as well. Armstrong fine last night. Physical Exam GENERAL: 53year old male. In no acute distress. SKIN: No lesions or rashes. HEART: Regular rate and rhythm. LUNGS: Clear to auscultation. ABDOMEN: Bowel sounds normoactive. No guarding or rigidity. No tenderness of palpation. NEURO: Alert and oriented. No deficits. MUSCULOSKELETAL: No deformities to inspection of the extremities. PSYCH: Patient is pleasant and answers all questions appropriately. Initial orders for labs and / or imaging were placed and patient was placed in the waiting area until a bed is available. Please see further documentation for the full ED course.
[2023-07-11 18:37] LABS: Basophils # (auto) 0.02 K/uL (0.00-0.20); Basophils % (auto) 0.2 %; Hematocrit (blood only) 49.5 % (42.0-52.0); Hemoglobin 16.8 g/dl (14.0-18.0); Immature Granulocytes # (auto) 0.05 K/uL (0.01-0.20); Immature Granulocytes % (auto) 0.4 %; Lymphocytes # (auto) 0.76 K/uL (1.20-3.40); Lymphocytes % (auto) 5.8 %; Mean Corpuscular Hemoglobin 31.1 pg (25.0-34.0); Mean Corpuscular Hgb Conc 33.9 g/dL (32.0-36.0); Mean Corpuscular Volume 91.5 fL (80.0-100.0); Mean Platelet Volume 10.3 fL (9.4-12.4); Monocytes # (auto) 1.58 K/uL (0.11-0.59); Neutrophils % (auto) 81.6 %; Platelet Count 258 K/uL (130-400); RDW Coefficient of Variation 16.6 % (11.5-14.5); RDW Standard Deviation 55.7 fL (36.4-46.3); Red Blood Count 5.41 M/uL (4.70-6.10); White Blood Count 13.21 K/ul (4.8-10.8)
--- NOTE | 2023-07-11 19:06 | XRay Report ---
XR chest 1V portable HISTORY: 53 years-old Male Heart racing sensation acute tachycardia COMPARISON: 09/24/2020 TECHNIQUE: PA view of the chest FINDINGS: Cardiomediastinal and hilar silhouettes are within normal limits. No pneumothorax, pleural effusion o r airspace consolidation. The bones appear grossly intact. IMPRESSION: No acute process. ACT 112: Negative or not required by law. The above report was generated using voice recognition software. It may contain grammatical, syntax o r spelling errors. Electronically signed by: Jake Greene M.D. 07/11/2023 7:05 PM
[2023-07-11 19:07] LABS: Alanine Aminotransferase 21 U/L (7-52); Albumin Globulin Ratio 1.3 (0.9-2); Albumin Level 4.2 gm/dl (3.4-5.0); Alkaline Phosphatase 55 U/L (34-104); Anion Gap 14 (3-11); BUN Creatinine Ratio 7.5 (10-20); Bilirubin,Total 1.2 mg/dl (0.2-1.0); Blood Urea Nitrogen 18 mg/dl (6-23); Calcium 9.2 mg/dl (8.6-10.3); Carbon Dioxide 22 mmol/L (21-32); Chloride 96 mmol/L (98-107); Creatinine Clr Calc Pharmacy 33.2 ml/min; Est GFR (African American) 34.3 ml/min; Est GFR (Non-African American) 29.6 ml/min; Globulin 3.2 gm/dl (2.5-4.0); Glucose 196 mg/dl (70-99(Fasting)); Lipase 76 U/L (11-82); Magnesium 1.8 mg/dl (1.7-2.4); Sodium 132 mmol/L (136-145); Total Protein 7.4 gm/dl (6.0-8.3)
[2023-07-11 19:14] LABS: Thyroid Stimulating Hormone 0.603 uIu/ml (0.300-4.500)
[2023-07-11] MEDS ORDERED: SODIUM CHLORIDE 0.9% 2,000 ML IV ONE (19:19)
[2023-07-11 19:32] LABS: Troponin I High Sensitivity 104.4 pg/ml (0-20)
--- NOTE | 2023-07-11 21:04 | Emergency Department Note ---
Impression & Plan Non-ST elevation MS (NSTEMI), VERITO (acute kidney injury), Tachycardia, Nausea & vomiting, Acute dehydration ED Provider Note HISTORY OF PRESENT ILLNESS: Patient is a 53-year-old male presenting with nausea and vomiting. Patient reports that he woke up this morning and felt sick to his stomach and has had multiple episodes of vomiting throughout the day. He also started having pain in his right calf and felt like his lower leg and foot were numb. He states that it was difficult to walk secondary to numbness in his right foot. He states that he rested for most the day with no episodes of vomiting. He then felt like his heart was racing. He denies any lightheadedness or dizziness. Denies any chest pain or feeling short of breath. Denies any DVT or PE history. Denies any anticoagulation use. He reports he is on metoprolol and amlodipine for previous palpitations. He denies any fevers or recent sick contact exposures. Denies any abdominal pain. ROS: as above PHYSICAL EXAM: Constitutional: Patient appears in no acute distress. HENT: Head: Normocephalic and atraumatic. Eyes: EOMI, PERRL Mouth/Throat: Mucous membranes moist. Neck: Trachea midline. Neck supple. Cardiovascular: Tachycardic with regular rhythm. No murmurs, rubs or gallops. Intact distal pulses. Pulmonary/Chest: No respiratory distress. Breath sounds clear and equal bilaterally. No wheezes or rales. Abdominal: Abdomen soft, no tenderness, rebound or guarding. Musculoskeletal: No edema, tenderness or deformity noted. Right calf is nontender to palpation and does not appear swollen as compared to the left. Skin: Warm and dry. No rash, erythema, pallor or cyanosis Psychiatric: Appropriate mood and affect for situation. Neurological: Alert and keenly responsive. CN II-XII grossly intact, moving all extremities equally and fully. MDM: - Vitals signs showed hypertension and tachycardia. - History obtained via patient. Patient presents with nausea and vomiting. Patient reports he woke up this morning and felt sick to his stomach and had multiple episodes of vomiting throughout the day. Denies any fevers. He reports he started having pain in his right calf and felt like his lower leg and foot wound. Reports difficulty to walk secondary to numbness in his right foot. He states he rested most of the day. He denies any chest pain or shortness of breath. He does state that it feels like his heart is racing. Denies any DVT or PE history. Not on any anticoagulation. Denies any recent fevers or sick contacts. Denies any abdominal pain. - Chronic conditions affecting care: HTN; seizure disorder - Differential diagnoses include, but are not limited to: dehydration; appendicitis; viral syndrome; cholecystitis; electrolyte abnormality; DVT; PE - Order placed for continuous cardiac monitoring. At this time, monitor showed rate of 108 bpm with normal sinus rhythm, per my interpretation. - External medical records reviewed. Patient's discharge summary dated 09/25/2020 was reviewed. Patient has been admitted for alcohol withdrawal at that time. - EKG reviewed by myself showed normal sinus rhythm. Rate tachycardic at 125 bpm. QTc 424. No acute ischemic changes. - Laboratory workup interpreted by myself showed leukocytosis (WBC 13.21) with left shift; hyponatremia (Na 312); VERITO (Cr 2.39); elevated anion gap (14 - likely from vomiting); normal liver function; elevated troponin (104.4); normal lipase; elevated dimer - CXR negative for pneumonia, per my interpretation - Repeat troponin remains elevated. - CT PE ordered. - Unclear etiology for patient's NSTEMI at this time. He does appear to be acutely dehydrated and has had multiple episodes of vomiting today, which could contribute to his NSTEMI. However, he has not had cardiac work-up in the past. - Discussion was had with care asst about patient's case and need for admission - Hospitalist consulted for admission - [facility] 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 Beliefs That Will Affect Care: None marital status: Legally Current Living Situation: Other current occupational status: employed Feels Safe at Home: Yes Assistive Devices: None Allergies Allergies Allergy/AdvReac Type Severity Reaction Status Date / Time codeine AdvReac Mild VOMITING Verified 07/11/23 21:59 hydrocodone AdvReac Mild VOMIT Verified 07/11/23 21:59 Home Meds Home Medications Medication Instructions Recorded Confirmed metoprolol succinate 50 mg 50 mg PO QAM 09/27/20 07/11/23 tablet,extended release 24 hr amlodipine 2.5 mg tablet 2.5 mg PO QAM 07/11/23 07/11/23 omeprazole 20 mg capsule,delayed 20 mg PO DAILYBB 07/11/23 07/11/23 release ondansetron 4 mg disintegrating 4 mg PO Q8 PRN Nausea 07/11/23 07/11/23 tablet polyethylene glycol 3350 17 17 g PO DAILY PRN Constipation 07/11/23 07/11/23 gram/dose oral powder prazosin 1 mg capsule 1 mg PO HS 07/11/23 07/11/23 quetiapine 50 mg tablet 75 mg PO HS 07/11/23 07/11/23 Previous Rx's Medication Instructions Recorded folic acid 1 mg tablet 1 mg PO QAM #14 tabs 09/25/20 Results & Data (ED) Vital Signs Vital Signs - 24 hr 07/11/23 18:18 07/11/23 20:55 07/11/23 20:55 Temperature 36.8 C Temperature Source Temporal Artery Scan Pulse Rate 131 H 119 H Pulse Rate [Apical] Respiratory Rate 18 Respiratory Effort / Characteristics Non-Labored Spontaneous Respiratory Depth Normal Respiratory Pattern Regular Blood Pressure 136/84 Blood Pressure [Right Arm] Blood Pressure Mean 101 Blood Pressure Mean [Right Arm] Blood Pressure Position Sitting Blood Pressure Position [Right Arm] Pulse Oximetry 98 98 Oxygen Delivery Method Room Air Room Air Sepsis Recent Fever Within 48 Hours No Sepsis New/Unexplained Change in Mental Status N/A Sepsis Action Taken by Nursing No Action Required 07/11/23 20:55 07/11/23 20:55 Temperature Temperature Source Pulse Rate Pulse Rate [Apical] 108 H Respiratory Rate 20 Respiratory Effort / Characteristics Respiratory Depth Respiratory Pattern Blood Pressure Blood Pressure [Right Arm] 153/100 H Blood Pressure Mean Blood Pressure Mean [Right Arm] 117 Blood Pressure Position Blood Pressure Position [Right Arm] Lying Pulse Oximetry 98 98 Oxygen Delivery Method Room Air Room Air Sepsis Recent Fever Within 48 Hours Sepsis New/Unexplained Change in Mental Status Sepsis Action Taken by Nursing Laboratory Data 07/11/23 18:22 07/11/23 21:04 Lab Results 07/11/23 07/11/23 Range/Units 18:22 21:04 WBC 13.21 H (4.8-10.8) K/ul RBC 5.41 (4.70-6.10) M/uL Hgb 16.8 (14.0-18.0) g/dl Hct 49.5 (42.0-52.0) % MCV 91.5 (80.0-100.0) fL MCH 31.1 (25.0-34.0) pg MCHC 33.9 (32.0-36.0) g/dL RDW Std Deviation 55.7 H (36.4-46.3) fL RDW Coeff of Sherice 16.6 H (11.5-14.5) % Plt Count 258 (130-400) K/uL MPV 10.3 (9.4-12.4) fL Immature Gran % (Auto) 0.4 % Neut % (Auto) 81.6 % Lymph % (Auto) 5.8 % [place] % (Auto) 12.0 % Eos % (Auto) 0.0 % Baso % (Auto) 0.2 % Neut # (Auto) 10.80 H (1.40-6.50) K/uL Lymph # (Auto) 0.76 L (1.20-3.40) K/uL [place] # (Auto) 1.58 H (0.11-0.59) K/uL Eos # (Auto) 0.00 (0.00-0.50) K/uL Baso # (Auto) 0.02 (0.00-0.20) K/uL Immature Gran # (Auto) 0.05 (0.01-0.20) K/uL PT Cancelled 11.1 INR Cancelled 1.0 APTT Cancelled 27.3 PTT Ratio Cancelled 1.0 D-Dimer 2080 H* (0-500) ug/L FEU Sodium 132 L (136-145) mmol/L Potassium TNP 4.4 Chloride 96 L (98-107) mmol/L Carbon Dioxide 22 (21-32) mmol/L Anion Gap 14 H (3-11) BUN 18 (6-23) mg/dl Creatinine 2.39 H (0.6-1.4) mg/dl Est Cr Clr Drug Dosing 33.2 ml/min Est GFR ( Amer) 34.3 ml/min Est GFR (Non-Af Amer) 29.6 ml/min BUN/Creatinine Ratio 7.5 L (10-20) Glucose 196 H (70-99(Fasting)) mg/dl Calcium 9.2 (8.6-10.3) mg/dl Magnesium 1.8 (1.7-2.4) mg/dl Total Bilirubin 1.2 H (0.2-1.0) mg/dl AST TNP 46 H ALT 21 (7-52) U/L Alkaline Phosphatase 55 (34-104) U/L Troponin I High Sens 104.4 H* 113.4 H* (0-20) pg/ml Total Protein 7.4 (6.0-8.3) gm/dl Albumin 4.2 (3.4-5.0) gm/dl Globulin 3.2 (2.5-4.0) gm/dl Albumin/Globulin Ratio 1.3 (0.9-2) Lipase 76 (11-82) U/L TSH 0.603 (0.300-4.500) uIu/ml Lyme Disease IgG Ab Cancelled Negative Lyme Disease IgM Ab Cancelled Negative Imaging Data Radiologist's Impression: Chest X-Ray 07/11/23 18:20 XR chest 1V portable HISTORY: 53 years-old Male Heart racing sensation acute tachycardia COMPARISON: 09/24/2020 TECHNIQUE: PA view of the chest FINDINGS: Cardiomediastinal and hilar silhouettes are within normal limits. No pneumothorax, pleural effusion or airspace consolidation. The bones appear grossly intact. IMPRESSION: No acute process. ACT 112: Negative or not required by law. The above report was generated using voice recognition software. It may contain grammatical, syntax or spelling errors. Electronically signed by: Jake Greene M.D. 07/11/2023 7:05 PM Venous Doppler Study 07/11/23 18:20 Exam(s): US VENOUS RIGHT LOWER EXTREMITY EXAM: US Duplex Right Lower Extremity Veins CLINICAL HISTORY: Reason for exam: R calf pain. TECHNIQUE: Real-time duplex ultrasound scan of the right lower extremity veins integrating B-mode two-dimensional vascular structure, Doppler spectral analysis, color flow Doppler imaging and compression. COMPARISON: No relevant prior studies available. FINDINGS: Deep veins: Unremarkable. No DVT in the visualized common femoral, femoral, proximal deep femoral or popliteal veins. The veins demonstrate normal color flow, are normally compressible, with normal phasic flow and/or augmentation response. Superficial veins: Unremarkable. No thrombus in the visualized great saphenous vein. Soft tissues: Medial Salas cyst, measuring 4.5 x 1.0 x 2.3 cm. IMPRESSION: No acute findings in the right lower extremity veins. Electronically signed by: Bob Estrada MD 07/11/23 21:51 PM Discharge Plan Visit Data Chief Complaint: Tachycardia Stated Complaint: RT CALF PAIN,RT FOOT NUMB,TACHYCARDIA, DIZZY ED Provider: Isabelle Rey Discharge Problem: Non-ST elevation MS (NSTEMI), VERITO (acute kidney injury), Tachycardia, Nausea & vomiting, Acute dehydration Forms Stand Alone Forms: My [facility] [employer] Prescriptions Prescriptions: No Action folic acid 1 mg Tablet 1 mg PO QAM Qty: 14 0RF metoprolol succinate 50 mg tablet extended release 24 hr 50 mg PO QAM prazosin 1 mg capsule 1 mg PO HS omeprazole 20 mg capsule,delayed release(DR/EC) 20 mg PO DAILYBB polyethylene glycol 3350 17 gram/dose powder 17 g PO DAILY PRN (Reason: Constipation) ondansetron 4 mg tablet,disintegrating 4 mg PO Q8 PRN (Reason: Nausea) quetiapine 50 mg tablet 75 mg PO HS amlodipine 2.5 mg tablet 2.5 mg PO QAM Referrals Referrals: Levon Cardenas MD [Outside Practitioners] -
[2023-07-11 21:35] LABS: Potassium 4.4 mmol/L (3.5-5.1)
--- NOTE | 2023-07-11 21:52 | Ultrasound Report ---
Exam(s): US VENOUS RIGHT LOWER EXTREMITY EXAM: US Duplex Right Lower Extremity Veins CLINICAL HISTORY: Reason for exam: R calf pain. TECHNIQUE: Real-time duplex ultrasound scan of the right lower extremity veins integrating B-mode two-dimensional vascular structure, Doppler spectral analysis, color flow Doppler imaging and compression. COMPARISON: No relevant prior studies available. FINDINGS: Deep veins: Unremarkable. No DVT in the visualized common femoral, femoral, proximal deep femoral or popliteal veins. The veins demonstrate normal color flow, are normally compressible, with normal phasic flow and/or augmentation response. Superficial veins: Unremarkable. No thrombus in the visualized great saphenous vein. Soft tissues: Medial Salas cyst, measuring 4.5 x 1.0 x 2.3 cm. IMPRESSION: No acute findings in the right lower extremity veins. Electronically signed by: Bob Estrada MD 07/11/23 21:51 PM
[2023-07-11 21:55] LABS: Partial Thromboplastin Time 27.3 Seconds (21.0-31.0); Prothrombin Time 11.1 Seconds (9.0-12.0)
[2023-07-11 22:14] LABS: D Dimer 2080 ug/L FEU (0-500)
[2023-07-11 22:16] LABS: Lyme Ab IgG w/WB Rflx Negative (Negative); Lyme Ab IgM w/WB Rflx Negative (Negative)
[2023-07-11] MEDS ORDERED: PRAZOSIN HCL 1 MG CAP PO STA (22:55)
[2023-07-11] MEDS ORDERED: QUEtiapine FUMARATE 25 MG TABLET PO STA (22:55)
--- NOTE | 2023-07-11 23:21 | History & Physical Report ---
Date of Service July 11, 2023 Assessment & Plan (1) VERITO (acute kidney injury): Plan: 53-year-old male with past med significant for hypertension, PVCs, peripheral neuropathy, history of Lymphoplasmacytoid lymphoma,CLL, Von Greg's macroglobulinemia, iron deficiency anemia, history of alcoholism, history of seizures, depression, comes because of nausea and vomiting and found to have VERITO and elevated troponin. VERITO cr 2.3 Mostly from nausea /vomiting and dehydration Avoid nephrotoxic agents We will follow repeat labs Elevated troponin Troponin 104 and repeat is 113 EKG no acute findings no chest pains We will further repeat troponin and echo Cardiac consult in a.m. Elevated D-dimer Right calf pain Doppler is negative for DVT Could not do CTA chest because of VERITO But patient has no chest pain and saturating okay on room air We will consider starting him on an IV heparin. Hypertension On Toprol and amlodipine Monitor Right foot numbness Patient has history of peripheral neuropathy Has chronic tingling in extremities per epic We will follow CT head neuro consult History of Lymphoplasmacytoid lymphoma Follows with heme-onc Currently under observation DVT prophylaxis Lovenox Disposition Telemetry floor Full code History of Present Illness Chief Complaint: Nausea and, vomiting Primary Care Provider: Elvira Ramirez PA-C 53-year-old male with past med significant for hypertension, PVCs, peripheral neuropathy, history of Lymphoplasmacytoid lymphoma,CLL, [place] Greg's macroglobulinemia, iron deficiency anemia, history of alcoholism, history of seizures, depression, comes because of nausea and vomiting and found to have VERITO and elevated troponin. Patient states he was doing okay last night. He drank about 6-8 beers last night because he was watching football match. He states he is not he does not drink regularly currently drinks only on the weekends. He woke up in the morning with nausea/ vomiting which subsided in the afternoon. Had some tachycardia. Also had pain in his right leg in calf region and some numbness in the right foot. Denies any chest pain or shortness of breath. No abdominal pain. No fevers. No headache. Vision is okay. No sore throat. No cough. Normal bowel and bladder movements. Currently resting comfortably and hemodynamically stable. Past medical history. As mentioned above Past surgical history. Colonoscopy. EGD. Schatzki ring dilated. Hernia repaired. Social history. No smoking. Currently drinking alcohol only on the weekends. No drug use. Family history. father had cardiac disease. Allergies Allergy/AdvReac Type Severity Reaction Status Date / Time codeine AdvReac Mild VOMITING Verified 07/11/23 21:59 hydrocodone AdvReac Mild VOMIT Verified 07/11/23 21:59 Home Medications Medication Instructions Recorded Confirmed Type folic acid 1 mg tablet 1 mg PO QAM #14 tabs 09/25/20 07/11/23 Rx metoprolol succinate 50 mg 50 mg PO QAM 09/27/20 07/11/23 History tablet,extended release 24 hr amlodipine 2.5 mg tablet 2.5 mg PO QAM 07/11/23 07/11/23 History omeprazole 20 mg capsule,delayed 20 mg PO DAILYBB 07/11/23 07/11/23 History release ondansetron 4 mg disintegrating 4 mg PO Q8 PRN Nausea 07/11/23 07/11/23 History tablet polyethylene glycol 3350 17 17 g PO DAILY PRN Constipation 07/11/23 07/11/23 History gram/dose oral powder prazosin 1 mg capsule 1 mg PO HS 07/11/23 07/11/23 History quetiapine 50 mg tablet 75 mg PO HS 07/11/23 07/11/23 History Past Med/Surg History Medical History (Updated 07/11/23 @ 22:53 by Isabelle Rey MD) Seizure Hypertension Alcohol abuse Surgical History H/O hernia repair Family History Other No significant family history Social History Smoking Status: Never smoker Second Hand Exposure: No; Do You Dip or Chew Tobacco: No; Tobacco Cessation Education Requested by Patient: No Hx Alcohol Use: Yes Alcohol type: beer Hx Substance Use: No Preferred Language: Icelandic Communication Ability: Effective Human Resources Operations Specialist Required: Yes Beliefs That Will Affect Care: None marital status: Legally Current Living Situation: Alone current occupational status: employed Other Information That Helps Us Care for You: No Feels Safe at Home: Yes Safety Concerns: Feels Safe At This Time Assistive Devices: None Review of Systems Review of Systems: All systems reviewed & are unremarkable except as noted in HPI & below Physical Exam Physical Exam: General- Not in distress Head- atraumatic Eyes- PERRL. ENT- oropharynx clear Neck- supple, no JVD. Lungs- clear to auscultation no wheezing or crackles Heart- regular rate and rhythm; no murmur, no gallop. Abdomen- normal bowel sounds, soft, nontender, no distension Extremities- no pretibial edema, has right calf tenderness no erythema or edema seen. Neuro- alert, oriented x 3; PERRL, no facial palsy; no dysarthria; moves extremities. Skin- warm & dry Results & Data Results & Data Vital Signs (Past 12 Hours) Vital Signs Temp Pulse Pulse Resp BP BP Pulse Ox 07/11/23 20:55 98 07/11/23 20:55 108 H 20 153/100 H 98 07/11/23 20:55 98 07/11/23 20:55 119 H 07/11/23 18:18 36.8 C 131 H 18 136/84 98 O2 Del Method 07/11/23 20:55 Room Air 07/11/23 20:55 Room Air 07/11/23 20:55 Room Air 07/11/23 20:55 07/11/23 18:18 Room Air Diagnostic Findings Laboratory Results WBC 13.21 K/ul (4.8-10.8) H 07/11/23 18:22 RBC 5.41 M/uL (4.70-6.10) 07/11/23 18:22 Hgb 16.8 g/dl (14.0-18.0) 07/11/23 18:22 Hct 49.5 % (42.0-52.0) 07/11/23 18:22 MCV 91.5 fL (80.0-100.0) 07/11/23 18:22 MCH 31.1 pg (25.0-34.0) 07/11/23 18:22 MCHC 33.9 g/dL (32.0-36.0) 07/11/23 18:22 RDW Std Deviation 55.7 fL (36.4-46.3) H 07/11/23 18:22 RDW Coeff of Sherice 16.6 % (11.5-14.5) H 07/11/23 18:22 Plt Count 258 K/uL (130-400) 07/11/23 18: MPV 10.3 fL (9.4-12.4) 07/11/23 18: Immature Gran % (Auto) 0.4 % 07/11/23 18: Neut % (Auto) 81.6 % 07/11/23 18: Lymph % (Auto) 5.8 % 07/11/23 18: [place] % (Auto) 12.0 % 07/11/23 18: Eos % (Auto) 0.0 % 07/11/23 18: Baso % (Auto) 0.2 % 07/11/23 18: Neut # (Auto) 10.80 K/uL (1.40-6.50) H 07/11/23 18: Lymph # (Auto) 0.76 K/uL (1.20-3.40) L 07/11/23 18: [place] # (Auto) 1.58 K/uL (0.11-0.59) H 07/11/23 18: Eos # (Auto) 0.00 K/uL (0.00-0.50) 07/11/23 18: Baso # (Auto) 0.02 K/uL (0.00-0.20) 07/11/23 18: Immature Gran # (Auto) 0.05 K/uL (0.01-0.20) 07/11/23 18: PT 11.1 Seconds (9.0-12.0) 07/11/23 21:04 INR 1.0 (0.9-1.1) 07/11/23 21:04 APTT 27.3 Seconds (21.0-31.0) 07/11/23 21:04 PTT Ratio 1.0 07/11/23 21:04 D-Dimer 2080 ug/L FEU (0-500) H* 07/11/23 21:04 Sodium 132 mmol/L (136-145) L 07/11/23 18:22 Potassium 4.4 mmol/L (3.5-5.1) 07/11/23 21:04 Chloride 96 mmol/L (98-107) L 07/11/23 18: Carbon Dioxide 22 mmol/L (21-32) 07/11/23 18:22 Anion Gap 14 (3-11) H 07/11/23 18:22 BUN 18 mg/dl (6-23) 07/11/23 18: Creatinine 2.39 mg/dl (0.6-1.4) H 07/11/23 18:22 Est Cr Clr Drug Dosing 33.2 ml/min 07/11/23 18:22 Est GFR ( Amer) 34.3 ml/min 07/11/23 18: Est GFR (Non-Af Amer) 29.6 ml/min 07/11/23 18: BUN/Creatinine Ratio 7.5 (10-20) L 07/11/23 18: Glucose 196 mg/dl (70-99(Fasting)) H 07/11/23 18: Calcium 9.2 mg/dl (8.6-10.3) 07/11/23 18: Magnesium 1.8 mg/dl (1.7-2.4) 07/11/23 18: Total Bilirubin 1.2 mg/dl (0.2-1.0) H 07/11/23 18:22 AST 46 U/L (13-39) H 07/11/23 21:04 ALT 21 U/L (7-52) 07/11/23 18: Alkaline Phosphatase 55 U/L (34-104) 07/11/23 18: Troponin I High Sens 113.4 pg/ml (0-20) H* 07/11/23 21:04 Total Protein 7.4 gm/dl (6.0-8.3) 07/11/23 18: Albumin 4.2 gm/dl (3.4-5.0) 07/11/23 18: Globulin 3.2 gm/dl (2.5-4.0) 07/11/23 18: Albumin/Globulin Ratio 1.3 (0.9-2) 07/11/23 18: Lipase 76 U/L (11-82) 07/11/23 18: TSH 0.603 uIu/ml (0.300-4.500) 07/11/23 18:22 Lyme Disease IgG Ab Negative (Negative) 07/11/23 21:04 Lyme Disease IgM Ab Negative (Negative) 07/11/23 21:04 Impressions Chest X-Ray 07/11/23 18:20 XR chest 1V portable HISTORY: 53 years-old Male Heart racing sensation acute tachycardia COMPARISON: 09/24/2020 TECHNIQUE: PA view of the chest FINDINGS: Cardiomediastinal and hilar silhouettes are within normal limits. No pneumothorax, pleural effusion or airspace consolidation. The bones appear grossly intact. IMPRESSION: No acute process. ACT 112: Negative or not required by law. The above report was generated using voice recognition software. It may contain grammatical, syntax or spelling errors. Electronically signed by: Jake Greene M.D. 07/11/2023 7:05 PM Venous Doppler Study 07/11/23 18:20 Exam(s): US VENOUS RIGHT LOWER EXTREMITY EXAM: US Duplex Right Lower Extremity Veins CLINICAL HISTORY: Reason for exam: R calf pain. TECHNIQUE: Real-time duplex ultrasound scan of the right lower extremity veins integrating B-mode two-dimensional vascular structure, Doppler spectral analysis, color flow Doppler imaging and compression. COMPARISON: No relevant prior studies available. FINDINGS: Deep veins: Unremarkable. No DVT in the visualized common femoral, femoral, proximal deep femoral or popliteal veins. The veins demonstrate normal color flow, are normally compressible, with normal phasic flow and/or augmentation response. Superficial veins: Unremarkable. No thrombus in the visualized great saphenous vein. Soft tissues: Medial Salas cyst, measuring 4.5 x 1.0 x 2.3 cm. IMPRESSION: No acute findings in the right lower extremity veins. Electronically signed by: Bob Estrada MD 07/11/23 21:51 PM ECG Additional Comments: ECG. Sinus tachycardia rate of 125. No acute ST seen Code Status & VTE Plan VTE Prophylaxis Plan VTE Prophylaxis will be ordered: Yes
--- NOTE | 2023-07-11 23:46 | CT Scan Report ---
Exam(s): CT HEAD Without Contrast EXAM: CT Head Without Intravenous Contrast CLINICAL HISTORY: Reason for exam: right foot numbness. TECHNIQUE: Axial computed tomography images of the head/brain without intravenous contrast. Automated exposure control was utilized for the study. A dose lowering technique was utilized adhering to the principles of ALARA. COMPARISON: No relevant prior studies available. FINDINGS: No acute intracranial hemorrhage. No midline shift or mass effect. The territorial jin-white matter differentiation is maintained throughout. The ventricles and sulci are commensurate with age. The visualized orbits appear grossly unremarkable. The calvarium is intact. The visualized paranasal sinuses and mastoid air cells are grossly clear. IMPRESSION: No acute intracranial hemorrhage, midline shift, or mass effect. Electronically signed by: Bob Estrada MD 07/11/23 23:45 PM
[2023-07-12] MEDS ORDERED: POLYETHYLENE (MIRALAX) 17 GM PACK PO PRN (00:12)
[2023-07-12] MEDS ORDERED: ONDANSETRON INJ 2 MG/ML 2 ML VIAL IV PRN (00:12)
[2023-07-12] MEDS ORDERED: NITROGLYCERIN SL 0.4 MG/TAB TAB SL PRN (00:12)
[2023-07-12] MEDS ORDERED: ACETAMINOPHEN 325 MG TAB PO PRN (00:12)
[2023-07-12] MEDS: SODIUM CHLORIDE 0.9% 1,000 ML IV SCH ×2 (00:29→09:29)
[2023-07-12] MEDS ORDERED: PANTOprazole 40 MG TAB PO SCH (06:30)
[2023-07-12 08:31] LABS: Basophils # (auto) 0.01 K/uL (0.00-0.20); Basophils % (auto) 0.1 %; Eosinophils # (auto) 0.01 K/uL (0.00-0.50); Eosinophils % (auto) 0.1 %; Hematocrit (blood only) 41.2 % (42.0-52.0); Hemoglobin 14.6 g/dl (14.0-18.0); Immature Granulocytes # (auto) 0.02 K/uL (0.01-0.20); Immature Granulocytes % (auto) 0.2 %; Lymphocytes # (auto) 1.07 K/uL (1.20-3.40); Lymphocytes % (auto) 10.5 %; Mean Corpuscular Hemoglobin 31.4 pg (25.0-34.0); Mean Corpuscular Hgb Conc 35.4 g/dL (32.0-36.0); Mean Corpuscular Volume 88.6 fL (80.0-100.0); Mean Platelet Volume 10.5 fL (9.4-12.4); Monocytes # (auto) 1.25 K/uL (0.11-0.59); Monocytes % (auto) 12.3 %; Neutrophils # (auto) 7.82 K/uL (1.40-6.50); Neutrophils % (auto) 76.8 %; Platelet Count 204 K/uL (130-400); RDW Coefficient of Variation 16.6 % (11.5-14.5); RDW Standard Deviation 54.2 fL (36.4-46.3); Red Blood Count 4.65 M/uL (4.70-6.10); White Blood Count 10.18 K/ul (4.8-10.8)
[2023-07-12 08:45] LABS: Albumin Globulin Ratio 1.3 (0.9-2); Albumin Level 3.4 gm/dl (3.4-5.0); BUN Creatinine Ratio 11.2 (10-20); Bilirubin,Total 1.5 mg/dl (0.2-1.0); Calcium 8.7 mg/dl (8.6-10.3); Creatinine Clr Calc Pharmacy 42.6 ml/min; Est GFR (African American) 46.2 ml/min; Est GFR (Non-African American) 39.9 ml/min; Globulin 2.6 gm/dl (2.5-4.0); Magnesium 1.9 mg/dl (1.7-2.4); Potassium 3.7 mmol/L (3.5-5.1); Troponin I High Sensitivity 77.8 pg/ml (0-20)
[2023-07-12] MEDS ORDERED: METOPROLOL SUCC 50MG EXT REL TAB PO SCH (09:00)
[2023-07-12] MEDS ORDERED: ASPIRIN 81 MG ECTAB PO SCH (09:00)
[2023-07-12] MEDS ORDERED: amLODIPine BESYLATE 5 MG TAB PO SCH (09:00)
[2023-07-12] MEDS ORDERED: FOLIC ACID 1 MG TAB PO SCH (09:00)
--- NOTE | 2023-07-12 09:02 | Electrocardiogram Report ---
Test Reason : Blood Pressure : / mmHG Vent. Rate : 125 BPM Atrial Rate : 125 BPM P-R Int : 170 ms QRS Dur : 070 ms QT Int : 294 ms P-R-T Axes : 067 034 063 degrees QTc Int : 424 [address] Sin[address] tachycardia Minor ST elevation in in V3 Abnormal ECG When compared with ECG of 01-FEB-2022 19:24, Minor ST elevation in V3 now present Confirmed by Alejandro Garza ([id number]) on 07/12/2023 9:02:39 AM Referred By: REFERRED SELF Confirmed By:Alejandro Garza
--- NOTE | 2023-07-12 09:03 | Electrocardiogram Report ---
Test Reason : Blood Pressure : / mmHG Vent. Rate : 107 BPM Atrial Rate : 107 BPM P-R Int : 170 ms QRS Dur : 086 ms QT Int : 348 ms P-R-T Axes : 063 068 060 degrees QTc Int : 464 ms Sinus tachycardia Otherwise normal ECG When compared with ECG of 11-JUL-2023 18:22, Minor ST elevation in V3 no longer present Confirmed by Alejandro Garza ([id number]) on 07/12/2023 9:03:07 AM Referred By: REFERRED SELF Confirmed By:Alejandro Garza
[2023-07-12] MEDS ORDERED: D5W AND NSS 1,000 ML IV SCH (09:30)
--- NOTE | 2023-07-12 10:14 | Cardiology Consultation ---
Date of Consultation July 12, 2023 Supervising Physician Co-Signing Physician Notes Attending Staff: Pt seen and evaluated with AP Staff Concur with observations and plans 53 yo man presenting with nausea + vomiting + right calf pain/right leg numbness. * [place] heart racing * + several bouts of vomiting * Duration - most of the morning * + right calf pain - relieved * + WEST * No change to diet * No sick contacts * No travel * No reported chest tightness * No hx of DVT ASCVD Risks * No smoking * No DM * No Elevated cholesterol * No strong family hx of heart disease Called cardiology for elevated troponin (104 - 113- 102- 78) * + VERITO (0.9 baseline creat - on presentation 2.3) * Plans: * ECHOcardiogram - ordered and pending * Check Amylase + Lipase * Question if N/V was secondary to food ingestion * Stop Norvasc 2.5 mg po per day * Continue Toprol XL 50 mg po per day * Plans for outpatient cardiology evaluation * Strongly consider Coronary CTA as an outpt Chidi George History of Present Illness Reason for Consultation: Elevated troponin Requesting Physician: Dr. Sosa Attending Physician: Dr. Dinh History of Present Illness 53 year old male Presented to the [facility] ER on 07/11 with nausea, vomiting, right calf pain, and right leg/foot numbness. - Creatinine 2.3 (baseline 1.0) - Troponin 104.4 -> 113.4 -> 102.8 -> 77.8 - EKG Sinus tachycardia at [address] elevation in V3 - EKG this AM sinus tachycardia at 107 bpm, no longer with minor ST elevation in V3 - No reported chest pain - Echo pending - CXR: No acute process - Venous duplex: No acute DVT Problem List Hypertension Symptomatic PVC's Preserved LV systolic function Chronic alcohol abuse GERD Schatzki ring Hiatal hernia chronic gastritis Lymphoplasmacytic lymphoma/Waldenstrom's macroglobulinemia - follows with hem/onc Peripheral neuropathy Seizure disorder Iron deficiency anemia Depression Allergies Allergy/AdvReac Type Severity Reaction Status Date / Time codeine AdvReac Mild VOMITING Verified 07/11/23 21:59 hydrocodone AdvReac Mild VOMIT Verified 07/11/23 21:59 Home Medications Medication Instructions Recorded Confirmed Type folic acid 1 mg tablet 1 mg PO QAM #14 tabs 09/25/20 07/11/23 Rx metoprolol succinate 50 mg 50 mg PO QAM 09/27/20 07/11/23 History tablet,extended release 24 hr amlodipine 2.5 mg tablet 2.5 mg PO QAM 07/11/23 07/11/23 History omeprazole 20 mg capsule,delayed 20 mg PO DAILYBB 07/11/23 07/11/23 History release ondansetron 4 mg disintegrating 4 mg PO Q8 PRN Nausea 07/11/23 07/11/23 History tablet polyethylene glycol 3350 17 17 g PO DAILY PRN Constipation 07/11/23 07/11/23 History gram/dose oral powder prazosin 1 mg capsule 1 mg PO HS 07/11/23 07/11/23 History quetiapine 50 mg tablet 75 mg PO HS 07/11/23 07/11/23 History Patient History Medical History Seizure Hypertension Alcohol abuse Surgical History H/O hernia repair Family History Other No significant family history Social History Smoking Status: Never smoker Second Hand Exposure: No; Do You Dip or Chew Tobacco: No; Tobacco Cessation Education Requested by Patient: No Hx Alcohol Use: Yes Alcohol type: beer Hx Substance Use: No Preferred Language: French Communication Ability: Effective 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 Physical Exam Physical Exam: Thin man in NAD No elevation in JVP S1S2 CTA B No C/C/E - warm and perfused Right calf - not swollen - no cords Results & Data Vital Signs (Past 12 Hours) Vital Signs Temp Pulse Resp BP Pulse Ox O2 Del Method 07/12/23 08:02 36.8 C 95 H 18 123/80 96 Room Air 07/12/23 03:27 36.5 C 105 H 18 123/81 94 Room Air 07/12/23 00:48 36.9 C 114 H 20 135/91 99 Room Air Laboratory Results Cardiac Enzymes 07/11/23 07/11/23 07/11/23 Range/Units 18:22 21:04 23:41 AST TNP 46 H Troponin I High Sens 104.4 H* 113.4 H* 102.8 H* (0-20) pg/ml 07/12/23 Range/Units 07:47 AST 35 Troponin I High Sens 77.8 H* D (0-20) pg/ml Coagulation 07/11/23 07/11/23 Range/Units 18:22 21:04 PT Cancelled 11.1 APTT Cancelled 27.3 CBC 07/11/23 07/12/23 Range/Units 18:22 07:47 WBC 13.21 H 10.18 (4.8-10.8) K/ul RBC 5.41 4.65 L (4.70-6.10) M/uL Hgb 16.8 14.6 (14.0-18.0) g/dl Hct 49.5 41.2 L (42.0-52.0) % Plt Count 258 204 (130-400) K/uL Neut # (Auto) 10.80 H 7.82 H (1.40-6.50) K/uL Lymph # (Auto) 0.76 L 1.07 L (1.20-3.40) K/uL [place]gle # (Auto) 1.58 H 1.25 H (0.11-0.59) K/uL Eos # (Auto) 0.00 0.01 (0.00-0.50) K/uL Baso # (Auto) 0.02 0.01 (0.00-0.20) K/uL Comprehensive Metabolic Panel 07/11/23 07/11/23 07/12/23 Range/Units 18:22 21:04 07:47 Sodium 132 L 135 L (136-145) mmol/L Potassium TNP 4.4 3.7 Chloride 96 L 102 (98-107) mmol/L Carbon Dioxide 22 24 (21-32) mmol/L BUN 18 21 (6-23) mg/dl Creatinine 2.39 H 1.87 H D (0.6-1.4) mg/dl Glucose 196 H 50 L* (70-99(Fasting)) mg/dl Calcium 9.2 8.7 (8.6-10.3) mg/dl AST TNP 46 H 35 ALT 21 15 (7-52) U/L Alkaline Phosphatase 55 44 (34-104) U/L Total Protein 7.4 6.0 (6.0-8.3) gm/dl Albumin 4.2 3.4 (3.4-5.0) gm/dl Intake and Output 07/11/23 07/12/23 07/12/23 22:59 06:59 14:59 Intake Total 340 / 340 1000 / 1000 Output Total 0 / 0 Balance 340 / 340 1000 / 1000 Intake: IV 1000 / 1000 Sodium Chloride 0.9% 1,000 ml @ 1000 / 1000 125 mls/hr IV .Q8H [facility] Rx#: [id number] Oral 340 / 340 Output: Urine 0 / 0 Other: Weight 66.5 kg 66.7 kg Weight Measurement Method Chair Scale Built in [facility] Diagnostic Findings September 20, 2022 Interpretation Summary (as per Dr. Romero): The left ventricular cavity size is normal. The LV wall thickness is mildly increased (concentric). The left ventricular wall motion is normal. The qualitative LV ejection fraction is 60-64% (normal). The left ventricular diastolic function is mildly abnormal (grade I). The aortic root is mildly enlarged. (4.1 cm) There is trace aortic, mitral and tricuspid insufficiency. There was normal sinus rhythm with occasional ventricular ectopy during the examination. In comparison to prior study of September 15, 2020, no significant change Zio monitor 04/04/2023 until 04/07/2023: Patient had a min HR of 53 bpm, max HR of 151 bpm, and avg HR of 77 bpm. Predominant underlying rhythm was Sinus Rhythm. 3 Supraventricular Tachycardia runs occurred, the run with the fastest interval lasting 11 beats with a max rate of 144 bpm (avg 129 bpm); the run with the fastest interval was also the longest. Isolated SVEs were rare (<1.0%), SVE Couplets were rare (<1.0%), and no SVE Triplets were present. Isolated VEs were occasional (2.7%, 9080), and no VE Couplets or VE Triplets were present. Ventricular Bigeminy and Trigeminy were present. No symptoms were reported. No patient triggered events were submitted. Summary: Predominant rhythm is sinus rhythm at 77 beats per minute, 3 relatively brief episodes of supraventricular tachycardia were observed. Premature ventricular contractions were of moderate frequency, 2.7% PVC burden. Medications Administered Current Inpatient Medications Acetaminophen (Acetaminophen 325 Mg Tab) 650 mg PO Q4H PRN PRN Reason: Pain or Fever Stop: 08/11/23 00:11 Amlodipine Besylate (Amlodipine Besylate 5 Mg Tab) 2.5 mg PO [facility] Stop: 08/11/23 08:59 Last Admin: 07/12/23 08:16 Dose: 2.5 mg Aspirin (Aspirin 81 Mg Ectab) 81 mg PO [facility] Stop: 08/11/23 08:59 Last Admin: 07/12/23 08:27 Dose: 81 mg Folic Acid (Folic Acid 1 Mg Tab) 1 mg PO [facility] Stop: 08/11/23 08:59 Last Admin: 07/12/23 08:17 Dose: 1 mg Dextrose/Sodium Chloride (D5w And Nss) 1,000 mls @ 100 mls/hr IV .Q10H [facility] Stop: 08/11/23 09:29 Last Admin: 07/12/23 09:48 Dose: 100 mls/hr Metoprolol Succinate (Metoprolol Succ 50mg Ext Rel Tab) 50 mg PO [facility] Stop: 08/11/23 08:59 Last Admin: 07/12/23 08:17 Dose: 50 mg Nitroglycerin (Nitroglycerin Sl 0.4 Mg/Tab Tab) 0.4 mg SL Q5M PRN PRN Reason: Chest Pain Stop: 08/11/23 00:11 Ondansetron HCl (Ondansetron Inj 2 Mg/Ml 2 Ml Vial) 4 mg IV Q6H PRN PRN Reason: Nausea Stop: 08/11/23 00:11 Last Admin: 07/12/23 00:29 Dose: 4 mg Pantoprazole Sodium (Pantoprazole 40 Mg Tab) 40 mg PO DAILYBB [facility] Stop: 08/11/23 06:29 Last Admin: 07/12/23 07:17 Dose: Not Given Polyethylene Glycol (Polyethylene (Miralax) 17 Gm Pack) 17 gm PO DAILY PRN PRN Reason: Constipation Stop: 08/11/23 00:11 Prazosin HCl (Prazosin Hcl 1 Mg Cap) 1 mg PO HS [facility] Stop: 08/11/23 20:59 Quetiapine Fumarate (Quetiapine Fumarate 25 Mg Tablet) 75 mg PO HS [facility] Stop: 08/11/23 20:59
[2023-07-12 11:43] LABS: Appearance Urine Clear (Clear); Bilirubin Urine Negative (Negative); Blood Urine Negative (Negative); Color Urine Yellow; Glucose Urine UA Negative (Negative); Ketones Urine Trace (Negative); Leukocyte Esterase Urine Negative (Negative); Nitrite Urine Negative (Negative); Protein Urine Negative (Negative); Specific Gravity Urine 1.006 (1.000-1.030); Urobilinogen Urine Negative (Negative)
--- NOTE | 2023-07-12 12:30 | Hospitalist Progress Note ---
Date of Service July 12, 2023 Assessment & Plan (1) VERITO (acute kidney injury): Plan: 53-year-old male with past med significant for hypertension, PVCs, peripheral neuropathy, history of Lymphoplasmacytoid lymphoma,CLL, Von Greg's macroglobulinemia, iron deficiency anemia, history of alcoholism, history of seizures, depression, comes because of nausea and vomiting and found to have VERITO and elevated troponin. Acute gastroenteritis Acute kidney injury Patient presented to the ED with nausea and vomiting for 1 day. Creatinine elevated 2.39 on admission. Baseline around 0.9 which was in December 2022 Continue IV hydration with D5 normal saline at current rate Advance diet as tolerated. Monitor strict input and output Demand ischemia Likely secondary to gastroenteritis/VERITO EKG personally reviewed; sinus tachycardia with heart rate of 125 No complaint of chest pain High-sensitivity troponin elevated 113 down trended Cardiology on board; echocardiogram pending Will need outpatient coronary CTA Amlodipine stopped, recommended to continue metoprolol Elevated D-dimer Right calf pain Doppler is negative for DVT Could not do CTA chest because of VERITO But patient has no chest pain and saturating okay on room air Elevated D-dimer likely due to acute gastroenteritis/VERITO Hypertension On Toprol Amlodipine is stopped Right foot numbness Patient has history of peripheral neuropathy Has chronic tingling in extremities per epic CT head without contrast personally reviewed; no acute finding Hypoglycemia Blood glucose in a.m. found to be 50 MG per DL Obtain random cortisol level Currently on D5 normal saline History of Lymphoplasmacytoid lymphoma Follows with heme-onc Currently under observation DVT prophylaxis Lovenox Disposition-patient continues to be hospitalized due to acute kidney injury and further work-up for elevated troponin. Full code Time spent evaluating patient, direct bedside care, chart review, placing orders, interpretation of diagnostic studies, discussion with consultants, patient, and family members, as well as other required patient management activities is 60 minutes Please note the above document was generated using voice recognition software. It may contain grammatical, syntax or spelling errors. Any formal questions or concerns about the content, text or information contained within the body of this dictation should be directly addressed to the provider for clarification Admission and Anticipated Discharge Date Admission Date: July 11, 2023 Subjective Seen and examined at bedside. He reports that he is feeling much better; not in distress. He denies any nausea or vomiting; able to tolerate diet. Review of Systems Review of Systems: All systems reviewed & are unremarkable except as noted in Subjective Physical Exam Physical Exam: General- Not in distress Head- atraumatic Eyes- PERRL. ENT- oropharynx clear Neck- supple, no JVD. Lungs- clear to auscultation no wheezing or crackles Heart- regular rate and rhythm; no murmur, no gallop. Abdomen- normal bowel sounds, soft, nontender, no distension Extremities- no pretibial edema, has right calf tenderness no erythema or edema seen. Neuro- alert, oriented x 3; PERRL, no facial palsy; no dysarthria; moves extremities. Skin- warm & dry Results & Data Results & Data Vital Signs (Past 12 Hours) Vital Signs Temp Pulse Pulse Resp BP Pulse Ox O2 Del Method 07/12/23 11: 36.5 C 85 18 114/76 93 Room Air 07/12/23 08:02 36.8 C 95 H 18 123/80 96 Room Air 07/12/23 08:00 113 H 07/12/23 08:00 Room Air 07/12/23 03:27 36.5 C 105 H 18 123/81 94 Room Air 07/12/23 00:48 36.9 C 114 H 20 135/91 99 Room Air Laboratory Results Laboratory Results WBC 10.18 K/ul (4.8-10.8) 07/12/23 07:47 RBC 4.65 M/uL (4.70-6.10) L 07/12/23 07:47 Hgb 14.6 g/dl (14.0-18.0) 07/12/23 07:47 Hct 41.2 % (42.0-52.0) L 07/12/23 07:47 MCV 88.6 fL (80.0-100.0) 07/12/23 07:47 MCH 31.4 pg (25.0-34.0) 07/12/23 07:47 MCHC 35.4 g/dL (32.0-36.0) 07/12/23 07:47 RDW Std Deviation 54.2 fL (36.4-46.3) H 07/12/23 07:47 RDW Coeff of Sherice 16.6 % (11.5-14.5) H 07/12/23 07:47 Plt Count 204 K/uL (130-400) 07/12/23 07:47 MPV 10.5 fL (9.4-12.4) 07/12/23 07:47 Immature Gran % (Auto) 0.2 % 07/12/23 07:47 Neut % (Auto) 76.8 % 07/12/23 07:47 Lymph % (Auto) 10.5 % 07/12/23 07:47 [place] % (Auto) 12.3 % 07/12/23 07:47 Eos % (Auto) 0.1 % 07/12/23 07:47 Baso % (Auto) 0.1 % 07/12/23 07:47 Neut # (Auto) 7.82 K/uL (1.40-6.50) H 07/12/23 07:47 Lymph # (Auto) 1.07 K/uL (1.20-3.40) L 07/12/23 07:47 [place] # (Auto) 1.25 K/uL (0.11-0.59) H 07/12/23 07:47 Eos # (Auto) 0.01 K/uL (0.00-0.50) 07/12/23 07:47 Baso # (Auto) 0.01 K/uL (0.00-0.20) 07/12/23 07:47 Immature Gran # (Auto) 0.02 K/uL (0.01-0.20) 07/12/23 07:47 PT 11.1 Seconds (9.0-12.0) 07/11/23 21:04 INR 1.0 (0.9-1.1) 07/11/23 21:04 APTT 27.3 Seconds (21.0-31.0) 07/11/23 21:04 PTT Ratio 1.0 07/11/23 21:04 D-Dimer 2080 ug/L FEU (0-500) H* 07/11/23 21:04 Sodium 135 mmol/L (136-145) L 07/12/23 07:47 Potassium 3.7 mmol/L (3.5-5.1) 07/12/23 07:47 Chloride 102 mmol/L (98-107) 07/12/23 07:47 Carbon Dioxide 24 mmol/L (21-32) 07/12/23 07:47 Anion Gap 9 (3-11) 07/12/23 07:47 BUN 21 mg/dl (6-23) 07/12/23 07:47 Creatinine 1.87 mg/dl (0.6-1.4) H D 07/12/23 07:47 Est Cr Clr Drug Dosing 42.6 ml/min 07/12/23 07:47 Est GFR ( Amer) 46.2 ml/min 07/12/23 07:47 Est GFR (Non-Af Amer) 39.9 ml/min 07/12/23 07:47 BUN/Creatinine Ratio 11.2 (10-20) 07/12/23 07:47 Glucose 50 mg/dl (70-99(Fasting)) L* 07/12/23 07:47 POC Glucose 171 mg/dl (70-99) H 07/12/23 09:14 Calcium 8.7 mg/dl (8.6-10.3) 07/12/23 07:47 Magnesium 1.9 mg/dl (1.7-2.4) 07/12/23 07:47 Total Bilirubin 1.5 mg/dl (0.2-1.0) H 07/12/23 07:47 AST 35 U/L (13-39) 07/12/23 07:47 ALT 15 U/L (7-52) 07/12/23 07:47 Alkaline Phosphatase 44 U/L (34-104) 07/12/23 07:47 Troponin I High Sens 77.8 pg/ml (0-20) H* D 07/12/23 07:47 Total Protein 6.0 gm/dl (6.0-8.3) 07/12/23 07:47 Albumin 3.4 gm/dl (3.4-5.0) 07/12/23 07:47 Globulin 2.6 gm/dl (2.5-4.0) 07/12/23 07:47 Albumin/Globulin Ratio 1.3 (0.9-2) 07/12/23 07:47 Lipase 76 U/L (11-82) 07/11/23 18:22 TSH 0.603 uIu/ml (0.300-4.500) 07/11/23 18:22 Urine Color Yellow 07/12/23 09:52 Urine Appearance Clear (Clear) 07/12/23 09:52 Urine pH 6.0 (4.5-7.5) 07/12/23 09:52 Ur Specific [place] 1.006 (1.000-1.030) 07/12/23 09:52 Urine Protein Negative (Negative) 07/12/23 09:52 Urine Glucose (UA) Negative (Negative) 07/12/23 09:52 Urine Ketones Trace (Negative) H 07/12/23 09:52 Urine Blood Negative (Negative) 07/12/23 09:52 Urine Nitrite Negative (Negative) 07/12/23 09:52 Urine Bilirubin Negative (Negative) 07/12/23 09:52 Urine Urobilinogen Negative (Negative) 07/12/23 09:52 Ur Leukocyte Esterase Negative (Negative) 07/12/23 09:52 Lyme Disease IgG Ab Negative (Negative) 07/11/23 21:04 Lyme Disease IgM Ab Negative (Negative) 07/11/23 21:04 Impressions Chest X-Ray 07/11/23 18:20 XR chest 1V portable HISTORY: 53 years-old Male Heart racing sensation acute tachycardia COMPARISON: 09/24/2020 TECHNIQUE: PA view of the chest FINDINGS: Cardiomediastinal and hilar silhouettes are within normal limits. No pneumothorax, pleural effusion or airspace consolidation. The bones appear grossly intact. IMPRESSION: No acute process. ACT 112: Negative or not required by law. The above report was generated using voice recognition software. It may contain grammatical, syntax or spelling errors. Electronically signed by: Jake Greene M.D. 07/11/2023 7:05 PM Venous Doppler Study 07/11/23 18:20 Exam(s): US VENOUS RIGHT LOWER EXTREMITY EXAM: US Duplex Right Lower Extremity Veins CLINICAL HISTORY: Reason for exam: R calf pain. TECHNIQUE: Real-time duplex ultrasound scan of the right lower extremity veins integrating B-mode two-dimensional vascular structure, Doppler spectral analysis, color flow Doppler imaging and compression. COMPARISON: No relevant prior studies available. FINDINGS: Deep veins: Unremarkable. No DVT in the visualized common femoral, femoral, proximal deep femoral or popliteal veins. The veins demonstrate normal color flow, are normally compressible, with normal phasic flow and/or augmentation response. Superficial veins: Unremarkable. No thrombus in the visualized great saphenous vein. Soft tissues: Medial Salas cyst, measuring 4.5 x 1.0 x 2.3 cm. IMPRESSION: No acute findings in the right lower extremity veins. Electronically signed by: Bob Estrada MD 07/11/23 21:[address] 07/11/23 23:06 Exam(s): CT HEAD Without Contrast EXAM: CT Head Without Intravenous Contrast CLINICAL HISTORY: Reason for exam: right foot numbness. TECHNIQUE: Axial computed tomography images of the head/brain without intravenous contrast. Automated exposure control was utilized for the study. A dose lowering technique was utilized adhering to the principles of ALARA. COMPARISON: No relevant prior studies available. FINDINGS: No acute intracranial hemorrhage. No midline shift or mass effect. The territorial jin-white matter differentiation is maintained throughout. The ventricles and sulci are commensurate with age. The visualized orbits appear grossly unremarkable. The calvarium is intact. The visualized paranasal sinuses and mastoid air cells are grossly clear. IMPRESSION: No acute intracranial hemorrhage, midline shift, or mass effect. Electronically signed by: Bob Estrada MD 07/11/23 23:45 PM
--- NOTE | 2023-07-12 16:52 | Discharge Summary ---
Date of Service July 12, 2023 Admission HPI Per Admitting Provider 53-year-old male with past med significant for hypertension, PVCs, peripheral neuropathy, history of Lymphoplasmacytoid lymphoma,CLL, Mora Greg's macroglobulinemia, iron deficiency anemia, history of alcoholism, history of seizures, depression, comes because of nausea and vomiting and found to have VERITO and elevated troponin. Patient states he was doing okay last night. He drank about 6-8 beers last night because he was watching football match. He states he is not he does not drink regularly currently drinks only on the weekends. He woke up in the morning with nausea/ vomiting which subsided in the afternoon. Had some tachycardia. Also had pain in his right leg in calf region and some numbness in the right foot. Denies any chest pain or shortness of breath. No abdominal pain. No fevers. No headache. Vision is okay. No sore throat. No cough. Normal bowel and bladder movements. Currently resting comfortably and hemodynamically stable. Past medical history. As mentioned above Past surgical history. Colonoscopy. EGD. Schatzki ring dilated. Hernia repaired. Social history. No smoking. Currently drinking alcohol only on the weekends. No drug use. Family history. father had cardiac disease. Admission Exam Per Admitting Provider General- Not in distress Head- atraumatic Eyes- PERRL. ENT- oropharynx clear Neck- supple, no JVD. Lungs- clear to auscultation no wheezing or crackles Heart- regular rate and rhythm; no murmur, no gallop. Abdomen- normal bowel sounds, soft, nontender, no distension Extremities- no pretibial edema, has right calf tenderness no erythema or edema seen. Neuro- alert, oriented x 3; PERRL, no facial palsy; no dysarthria; moves extremities. Skin- warm & dry Principal Diagnosis Acute gastroenteritis Acute kidney injury Discharge Exam Constitutional: WD/WN, vitals as above, NAD, sitting up in bed, pleasant, conversing easily Respiratory: normal respiratory effort, lungs clear to auscultation, no wheeze, rales, rhonchi. Normal insp/exp effort, no accessory muscle use Cardiovascular: RRR, no murmur, no edema Vessels: no JVD or carotid bruit Chest: normal inspection of chest Abdomen: normal bowel sounds, soft, nontender, no hepatosplenomegaly Musculoskeletal: no cyanosis or clubbing, extremities motor strength 5/5 Skin: no rashes, warm and dry normal turgor Neurologic: PERRL, EOMI, accommodation nl, no face palsy, no dysarthria CN's II- XI intact bilaterally and moves all extremities Psychiatric: A+Ox3, euthymic affect Discharge Data Allergies Allergy/AdvReac Type Severity Reaction Status Date / Time codeine AdvReac Mild VOMITING Verified 07/11/23 21:59 hydrocodone AdvReac Mild VOMIT Verified 07/11/23 21:59 Consultations 07/11/23 21:44 ED Decision to Admit Stat 07/12/23 08:00 Consult Cardiology Routine Ordered Studies 07/11/23 18:20 US venous doppler LE RT Stat 07/11/23 23:06 CT head/brain wo con Urgent Hospital Course (1) VERITO (acute kidney injury): 53-year-old male with past med significant for hypertension, PVCs, peripheral neuropathy, history of Lymphoplasmacytoid lymphoma,CLL, Mora Greg's macroglobulinemia, iron deficiency anemia, history of alcoholism, history of seizures, depression, comes because of nausea and vomiting and found to have VERITO and elevated troponin. Patient was admitted to telemetry floor for further management. He was started on IV fluids for acute kidney injury. Cardiology was consulted for comanagement for the elevated troponin. His creatinine downtrending slightly overnight with IV hydration. Echocardiogram showed ejection fraction of 60 to 65%; no other abnormality. Patient was recommended to stay in the hospital to continue IV hydration and monitoring for acute kidney injury. Discussion was done with the patient regarding risks of foregoing treatment which includes severe electrolyte abnormality, hemodialysis and even . He understood and verbalized the risks. He was alert oriented x3. I advised him to follow-up with his primary care doctor as soon as possible. Patient left the hospital AGAINST MEDICAL ADVICE. Please note the above document was generated using voice recognition software. It may contain grammatical, syntax or spelling errors. Any formal questions or concerns about the content, text or information contained within the body of th is dictation should be directly addressed to the provider for clarification Total Time Total Time Spent Total Time Spent (In Minutes): 45 Total Time Includes: Examination of the Patient, Discharge Planning, Medication Reconciliation, Communication With Other Providers and Other Discharge Plan Discharge Items Patient Disposition: Against Medical Advice Reason For Visit: N/V, VERITO, ELEVATED TROPONIN Activity: Resume your previous activity Non-emergency contact: Primary Care Provider Follow-up/Referrals: Elvira Ramirez PA-C [Primary Care Provider] - Mary Bottle Carrier Provider Instructions: You were admitted to the hospital due to kidney failure. You were treated with IV hydration during the hospitalization. Please continue to hydrate once you go home. Drink 2 L of water. Please follow-up with your primary care doctor within 1 week. Please have blood work checked regarding your kidney function. Please discuss with your primary care doctor regarding getting coronary CTA as outpatient. Amlodipine is recommended to be stopped by the square shear operator. Pending Studies at Discharge: Yes Stand-Alone Forms: My [facility], Smoking Cessation Medications and DC Order Prescriptions: Continued folic acid 1 mg Tablet 1 mg PO QAM Qty: 14 0RF metoprolol succinate 50 mg tablet extended release 24 hr 50 mg PO QAM prazosin 1 mg capsule 1 mg PO HS omeprazole 20 mg capsule,delayed release(DR/EC) 20 mg PO DAILYBB polyethylene glycol 3350 17 gram/dose powder 17 g PO DAILY PRN (Reason: Constipation) ondansetron 4 mg tablet,disintegrating 4 mg PO Q8 PRN (Reason: Nausea) quetiapine 50 mg tablet 75 mg PO HS Discontinued amlodipine 2.5 mg tablet 2.5 mg PO QAM Discharge Orders: Left Against Medical Advice (Routine); Ordered 07/12/23 Ordered By: Mohsen Dinh Admission Data Admit Date/Time: 07/11/23 23:05 Attending Provider: Mohsen Dinh Admit Provider: Conrad Sosa Primary Care Provider: Elvira Ramirez Other Providers: Conrad Sosa; Iva Macias; Bandar Jones; George Romero; Tyron Ojeda; Clemente Srivastava; Levon Olvera; Karon Mishra; Mary Snyder; Iva Flanagan; Eliecer Montes De Oca; Freddy Ballard; Jing Noonan; Rosa Lockhart; Hector An; Nitin George
[2023-07-12] MEDS ORDERED: PRAZOSIN HCL 1 MG CAP PO SCH (21:00)
[2023-07-12] MEDS ORDERED: QUEtiapine FUMARATE 25 MG TABLET PO SCH (21:00)
--- OUTSIDE RECORDS SUMMARY | 2023-07-13 23:32 | External Medical Summary | Summary of Care ---
Author Name Unknown Organization [facility] Address [address] [place] [address] Phone [phone] Care Team Providers Care Dry Yard Worker Name Role Phone Elvira Ramirez PA-C Primary Care Provider [phone] Reason for Visit * Reason Comments Follow Up Encounter Details Date Type Department Care Team Description 04/04/2023 Office Visit Cardiology, [facility] [address] [place] [id number] Karon Mishra PA-C [address] [place] [address] HTN, goal below 140/90*; PVCs (premature ventricular contractions); Sinus tachycardia Allergies Active Allergy Reactions Severity Noted Date Comments Codeine Nausea/vomiting 05/20/2011 Hydrocodone Nausea/vomiting 05/20/2011 documented as of this encounter (statuses as of 04/04/2023) Medications Medication Sig Dispensed Refills Start Date End Date Status Mupirocin Calcium 2 % External CreamIndications:Epi staxis Apply topically to affected area 3 times a day. Apply to a R nostril 30 g 2 05/19/2021 Active Prazosin HCl 1 MG Oral Capsule (Minipress) Take 1 Capsule by mouth at bedtime. 0 Active Mupirocin Calcium 2 % External CreamIndications:Epi staxis Apply topically to affected area 3 times a day . Apply to a R nostril 30 g 1 11/19/2021 Active amLODIPine Besylate 2.5 MG Oral Tablet (Norvasc) Take by mouth 1 Tablet in the morning. 90 Tablet 3 06/18/2022 Active Folic Acid 1 MG Oral TabletIndications:Ly mphoplasmacytoid lymphoma, CLL (HCC) Take by mouth 1 Tablet in the morning. 90 Tablet 3 06/27/2022 Active Naltrexone HCl 50 MG Oral Tablet (Revia) Take 1 Tablet by mouth every evening. 0 09/27/2022 Active Metoprolol Succinate ER 50 MG Oral Tablet Extended Release 24 Hour (toPROL XL)Indications:HTN, goal below 140/90 Take 1 Tablet by mouth in the morning. 90 Tablet 1 11/23/2022 Active Ondansetron 4 MG Oral Tablet Disintegrating (Zofran)Indications: Nausea Place 1 Tablet on tongue every 8 hours as needed for Nausea. dissolve on tongue. 20 Tablet 1 11/23/2022 Active Polyethylene Glycol 3350 17 GM/SCOOP Oral Powder (MiraLax)Indications :Drug-induced constipation Take 17 g by mouth as needed for Constipation. Dissolve in 8 ounces of gatorade and drink. 850 g 1 11/24/2022 Active Omeprazole 20 MG Oral Capsule Delayed Release (PriLOSEC)Indication s:Acute gastritis without hemorrhage, unspecified gastritis type TAKE 1 CAPSULE BY MOUTH ONCE DAILY 1 HOUR BEFORE THE FIRST MEAL OF THE DAY 90 Capsule 1 03/31/2023 Active QUEtiapine Fumarate 50 MG Oral Tablet (SEROquel) Take 1.5 Tablets by mouth at bedtime. 0 03/22/2023 Active QUEtiapine Fumarate 25 MG Oral Tablet (SEROquel) Take 1 Tablet by mouth at bedtime. 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 HTN, goal below 140/90 09/20/2018 PVCs (premature ventricular contractions ) 09/20/2018 History of seizure 09/30/2017 Peripheral polyneuropathy 09/30/2017 Alcohol dependence 04/30/2016 Other specified disease of pancreas Other specified disorders of liver Overview: fatty liver on US documented as of this encounter (statuses as of 04/04/2023) Resolved Problems Problem Noted Date Resolved Date Abnormal results of liver function studies 09/2005/19/2021 Partial symptomatic epilepsy with complex partial seizures, not intractable, without status epilepticus 06/08/2016 09/30/2017 Closed nondisplaced fracture of greater tuberosity of right humerus 04/30/2016 10/01/2017 Acute pain of right shoulder 04/30/201610/2017 Alcohol ingestion, 1-4 drinks per day 04/19/2016 08/15/2020 Alcohol abuse 04/01/2017 Alcohol intoxication 09/30/2017 Seizure 09/30/2017 documented as of this encounter (statuses as of 04/04/2023) Immunizations Name Administration Dates Next Due Pneumococcal Polysaccharide PPV23 (Pneumovax) 08/12/2020 Seasonal Influenza, Quadriva lent, No Preserve, 6 Mons & Above, IM 05/25/2022,05/19/2021,07/15/2020,05/30 Seasonal Influenza, Quadriva lent, No Preserve, IM 06/10/2016 Seasonal Influenza, Split, I IV3, With Preserve, Inj 05/21/2014,07/18/2013 05/21/2015 TD, Preservative Free 04/09/2020 TDAP (age 10 and older)(Boostrix) 07/16/2009 documented as of this encounter Social History Tobacco Use Types Packs/Day Years Used Date Smoking Tobacco: Never Smokeless Tobacco: Never Tobacco Cessation:Counseling Given: Not Answered Alcohol Use Standard Drinks/Week Comments Not Currently 0 (1 standard drink = 0.6 oz pur e alcohol) 8 or more cans of beer/day Food Insecurity Answer Date Recorded Within the past 12 months, y ou worried that your food would run out before you got money to buy more. Never true 10/10/2019 Within the past 12 months, t he food you bought just didn't last and you didn't have money to get more. Never true 10/10/2019 Sex Assigned at Date Recorded Male 02/13/2018 4:08 PM E DT Job Start Date Occupation Industry Not on file Not on file Not on file documented as of this encounter Last Filed Vital Signs Vital Sign Reading Time Taken Comments Blood Pressure 136/70 04/04/2023 10:21 AM EDT Pulse 130 04/04/2023 10:21 AM EDT Temperature - - Respiratory Rate 12 04/04/2023 10:21 AM EDT Oxygen Saturation 95% 04/04/2023 10:21 AM EDT Inhaled Oxygen Concentration - - Weight 69.1 kg (152 lb 4 oz) 04/04/2023 10:21 AM EDT Height - - Body Mass Index 21.85 11/23/2022 8:44 AM EDT documented in this encounter Nursing Notes * Suzan Jimenez CMA - 04/04/2023 10:19 AM EDT Examination Room: 1 Name: Gentry Rios Date of : (1970). Reason for Visit: f/u Interim Hospitalization(s): none Problems/Concerns: denies Chest Pain/SOB: denies [facility] Discussed: Not applicable [facility] is a way you can talk to your provider online through e-mail. Would you like to sign up? I can activate it for you? ALREADY ACTIVE Patient was instructed to not get up on the exam table until directed and assisted by their provider; patient is to remain seated in the chair/ wheelchair/ exam table for fall prevention and safety reasons. Patient is aware to have assistance to step down off exam table with personnel. Patient voiced full comprehension of instructions. documented in this encounter Plan of Treatment Upcoming Encounters Date Type Specialty Care Team Description 05/04/2023 Hospital Encounter Endoscopy Jarvis Vargas, DO [address] [place] [id number] 05/04/2023 Surgery Endoscopy Jarvis Vargas, DO [address] [place] [address] ESOPHAGOGASTRODUODENOSCOPY (EGD), FLEXIBLE, TRANSORAL, DIAGNOSTIC 05/26/2023 Office Visit Family Medicine Elvira Ramirez PA-C [address] [place] [address] 07/13/2023 Laboratory Laboratory [facility] [address] [place] [address] 07/15/2023 Office Visit Hematology Oncology Zacarias Felder MD [address] [place] [address] 10/13/2023 Office Visit Cardiology Levon Olvera PA-C [address] [place] [address] Scheduled Orders Name Type Priority Associated Diagnoses Orde r Schedule EKG EKG Routine HTN, goal below 140/90 PVCs (premature ventricular contractions) Ordered: 04/04/2023 EXTERNAL EKG 2 TO 7 DAYS Holter Routine HTN, goal below 140/90 PVCs (premature ventricular contractions) Sinus tachycardia Expected: 04/04/2023 (Approximate), Expires: 04/04/2024 Scheduled Procedures Name Priority Associated Diagnoses Date/Ti me ESOPHAGOGASTRODUODENOSCOPY ( EGD), FLEXIBLE, TRANSORAL, DIAGNOSTIC Recall Dysphagia Schatzki's ring 05/04/2023 1:15 PM EDT COLONOSCOPY FLEXIBLE PROXIMA L DIAGNOSTIC Recall Screen for colon cancer Health Maintenance Due Date Last Done Comments Hepatitis B (1 of 3 - 3-dose series) 1970 COVID-19 Vaccine (#1) 1974 Albumin/Creatinine Ratio 1987 Zoster Vaccines (1 of 2) 01/05/1988 Cologuard 2014 Fecal Occult Blood Test 2014 Sigmoidoscopy 2014 Depression Screening, Annual for Pts 12 and Over 08/05/2021 08/05/2020 Pneumococcal Vaccine: Pediatrics (0 to 5 Years) and At-Risk Patients (6 to 64 Years) (2 - PCV) 08/12/2021 08/12/2020 Influenza Vaccine (FLU shot) (#1) 2023 05/25/2022, 05/19/2021, 07/15/2020, Additional history exists GFR 01/13/2024 01/12/2023, 03/2022, 05/25/2022, Additional history exists Lipid Panel 01/13/2028 01/12/2023, 12/27, 08/20/2021, Additional history exists DTaP,Tdap,and Td Vaccines (3 - Td or Tdap) 04/09/2030 04/09/2020, 07/16/2009 Colonoscopy 12/02/2030 12/02/2020, 12/02/2020 Colorectal Cancer Screening 12/02/2030 Hepatitis C Screening Completed 05/25/2022 , 05/25/2022, 05/25/2022, Additional history exists GARDASIL-HPV IMMUNIZATION SERIES Aged Out No longer eligible based on patient's age to complete this topic MENINGOCOCCAL (MENACTRA/MENVEO) Aged Out No longer eligible based on patient's age to complete this topic documented as of this encounter Medical Devices Not on filedocumented as of this encounter Visit Diagnoses Diagnosis HTN, goal below 140/90- Primary Unspecified essential hypertension PVCs (premature ventricular contractions) Other premature beats Sinus tachycardia Other specified cardiac dysrhythmias Dysphagia Dysphagia, unspecified Schatzki's ring Congenital tracheoesophageal fistula, esophageal atresia and stenosis documented in this encounter Care Teams Dry Yard Worker Relationship Specialty Start Date End Date Elvira Ramirez PA-C [address] [place] [address] PCP - General Physician Fire Equipment Repairer Inspector 11/23/22 documented as of this encounter
--- OUTSIDE RECORDS SUMMARY | 2023-07-13 23:32 | External Medical Summary | Summary of Care ---
Author Name Unknown Organization [facility] Address [address] [place] [address] Phone [phone] Care Team Providers Care Auto Hiker Name Role Phone Elvira Ramirez PA-C Primary Care Provider [phone] Reason for Visit * Reason Comments eRx-Medication Refill Encounter Details Date Type Department Care Team (Late st Contact Info) Description 07/05/2023 Refill [facility] [address] [place] [address] Elvira Ramirez PA-C [address] [place] [address] HTN, goal below 140/90 Allergies Active Allergy Reactions Criticality Noted Date Comments Codeine Nausea/vomiting 05/20/2011 Hydrocodone Nausea/vomiting 05/20/2011 documented as of this encounter (statuses as of 07/06/2023) Medications Medication Sig Dispensed Refills Start Date End Date Status Mupirocin Calcium 2 % External CreamIndications:Ep istaxis Apply topically to affected area 3 times a day. Apply to a R nostril 30 g 2 1 Active Additional Information Patient not taking.Reported on 04/29/2023 Prazosin HCl 1 MG Oral Capsule (Minipress) Take 1 Capsule by mouth at bedtime. 0 Active Mupirocin Calcium 2 % External CreamIndications:Ep istaxis Apply topically to affected area 3 times a day . Apply to a R nostril 30 g 1 2 Active Additional Information Patient not taking.Reported on 04/29/2023 amLODIPine Besylate 2.5 MG Oral Tablet (Norvasc) Take by mouth 1 Tablet in the morning. 90 Tablet 3 2 Active Folic Acid 1 MG Oral TabletIndications:L ymphoplasmacytoid lymphoma, CLL Take by mouth 1 Tablet in the morning. 90 Tablet 3 2 Active Naltrexone HCl 50 MG Oral Tablet (Revia) Take 1 Tablet by mouth every evening. 0 3 Active Omeprazole 20 MG Oral Capsule Delayed Release (PriLOSEC)Indicatio ns:Acute gastritis without hemorrhage, unspecified gastritis type TAKE 1 CAPSULE BY MOUTH ONCE DAILY 1 HOUR BEFORE THE FIRST MEAL OF THE DAY 90 Capsule 1 3 Active QUEtiapine Fumarate 50 MG Oral Tablet (SEROquel) Take 1.5 Tablets by mouth at bedtime. 0 3 Active Ondansetron 4 MG Oral Tablet Disintegrating (Zofran)Indications :Nausea Place 1 Tablet on tongue every 8 hours as needed for Nausea. dissolve on tongue. 20 Tablet 1 3 Active Metoprolol Succinate ER 50 MG Oral Tablet Extended Release 24 Hour (toPROL XL)Indications:HTN, goal below 140/90 TAKE 1 TABLET BY MOUTH IN THE MORNING 90 Tablet 1 3 Active Metoprolol Succinate ER 50 MG Oral Tablet Extended Release 24 Hour (toPROL XL)Indications:HTN, goal below 140/90 Take 1 Tablet by mouth in the morning. 90 Tablet 1 3 07/06/20 23 Discontinued documented as of this encounter (statuses as of 07/06/2023) Active Problems Problem Noted Date Diagnosed Date Alcohol dependence in remission 11/23/2022 Major depressive disorder, single episode, moder ate 11/23/2022 History of alcohol abuse 06/18/2022 Waldenstroms macroglobulinemia 10/09/2021 Other iron deficiency anemias 10/09/2021 Lymphoplasmacytoid lymphoma, CLL 01/18/2020 HTN, goal below 140/90 09/20/2018 PVCs (premature ventricular contractions) 2018 History of seizure 09/30/2017 Peripheral polyneuropathy 09/30/2017 Alcohol dependence 04/30/2016 Other specified disease of pancreas Other specified disorders of liver Overview: fatty liver on US documented as of this encounter (statuses as of 07/06/2023) Resolved Problems Problem Noted Date Diagnosed Date Resolved Date Abnormal results of liver function studies 09/20/2018 05/19/2021 Partial symptomatic epilepsy with complex partial seizures, not intractable, without status epilepticus 06/08/2016 09/30/2017 Closed nondisplaced fracture of greater tuberosity of right humerus 04/30/2016 10/01/2017 Acute pain of right shoulder 04/30/2016 10/01/2017 Alcohol ingestion, 1-4 drinks per day 04/19/2016 08/15/2020 Alcohol abuse 04/01/2017 Alcohol intoxication 018 Seizure 09/30/2017 documented as of this encounter (statuses as of 07/06/2023) Immunizations Name Administration Dates Next Due Pneumococcal Polysaccharide PPV23 (Pneumovax) 08/12/2020 SEASONAL INFLUENZA, PF, 6 M & Above, IM , (FLULAVAL or FLUZONE) 05/25/2022,05/19/2021,07/15/2020,05/30 Seasonal Influenza, Quadriva lent, No Preserve, IM 06/10/2016 Seasonal Influenza, Split, I IV3, With Preserve, Inj 05/21/2014,07/18/2013 05/21/2015 TD, Preservative Free 04/09/2020 TDAP (age 10 and older)(Boostrix) 07/16/2009 documented as of this encounter Social History Tobacco Use Types Packs/Day Years Used Date Smoking Tobacco: Never Smokeless Tobacco: Never Alcohol Use Standard Drinks/Week Comments Not Currently 0 (1 standard drink = 0.6 oz pur e alcohol) 8 or more cans of beer/day PHQ-2 Answer Date Recorded PHQ-2 Score 6 08/05/2020 Hunger Vital Sign Answer Date Recorded Worried About Running Out of Food in the Last Ye ar Never true 10/10/2019 Ran Out of Food in the Last Year Never true 10/10/2019 Sex and Gender Information Value Date Recorded Sex Assigned at Male 02/13/2018 4:08 PM EDT Gender Identity Male 02/13/2018 4:08 PM EDT Sexual Orientation Straight 02/13/2018 4: 08 PM EDT Job Start Date Occupation Industry Not on file Not on file Not on file documented as of this encounter Miscellaneous Notes * Telephone Encounter - Prusinski, Lauren W, [facility] - 07/06/2023 9:19 AM ESTSigned Prescriptions: Disp Refills Metoprolol Succinate ER 50 MG Oral Tablet *90 Tab*1 Sig: TAKE 1 TABLET BY MOUTH IN THE MORNINGAuthorizing Provider: ELVIRA RAMIREZ User: LAUREN BARRERA documented in this encounter Plan of Treatment Upcoming Encounters Date Type Department Care Team (Late st Contact Info) Description 07/13/2023 8:00 AM EST Laboratory Laboratory, [place] [address] [facility] [place] [id number] [facility] [address] [place] [address] 07/15/2023 1:15 PM EST Office Visit Hematology/Oncology [facility] [address] [facility] [place] [address] Zacarias Felder MD [address] [place] [address] 10/13/2023 9:30 AM EST Office Visit Cardiology, [facility] [address] [facility] [place] [address] Levon Olvera PA-C [address] [facility] [place] [address] 11/24/2023 8:40 AM EDT Office Visit [facility], [place] [address] [facility] [phone] Elvira Ramirez PA-C [address] [place] [address] Scheduled Procedures Name Priority Associated Diagnoses Date/Ti me COLONOSCOPY FLEXIBLE PROXIMAL DIAGNOSTIC Recall Screen for colon cancer Health Maintenance Due Date Last Done Comments Hepatitis B (1 of 3 - 3-dose series) 1970 COVID-19 Vaccine (#1) 1974 Albumin/Creatinine Ratio 1987 Zoster Vaccines (1 of 2) 01/05/1988 Cologuard 2014 Fecal Occult Blood Test 2014 Sigmoidoscopy 2014 Depression Screening 08/05/2021 08/05/2020 Pneumococcal Vaccine: Pediatrics (0 to [...] 12/02/2030 12/02/2020, 12/02/2020 Colorectal Cancer Screening 12/02/2030 GARDASIL-HPV IMMUNIZATION SERIES Aged Out No longer eligible based on patient's age to complete this topic MENINGOCOCCAL (MENACTRA/MENVEO) Aged Out No longer eligible based on patient's age to complete this topic documented as of this encounter Medical Devices Not on filedocumented as of this encounter Visit Diagnoses Diagnosis HTN, goal below 140/90 Unspecified essential hypertension documented in this encounter Care Teams Auto Hiker Relationship Specialty Start Date End Date Elvira Ramirez PA-C [address] [place] [address] PCP - General Physician Mat Maker 11/23/22 documented as of this encounter
--- OUTSIDE RECORDS SUMMARY | 2023-07-13 23:32 | External Medical Summary | Summary of Care ---
Author Name Unknown Organization [facility] Address [address] [place] [address] Phone [phone] Care Team Providers Care Multi Spindle Operator Name Role Phone Elvira Ramirez PA-C Primary Care Provider [phone] Reason for Visit * Auth/Cert Specialty Diagnoses / Procedures Referred By Ousmane vásquez Referred To Contact Diagnoses Dysphagia Schatzki's ring Dysphagia [R13.10] Schatzki's ring [K22.2] Procedures EGD, FLEXIBLE, DIAGNOSTIC ESOPHAGOGASTRODUODENOSCOPY (EGD), FLEXIBLE, TRANSORAL, DIAGNOSTIC Referral ID Status Reason Start Date Expiration Date Visits Re quested Visits Authorized [id number] Encounter Details Date Type Department Care Team Description 05/04/2023 Hospital Encounter [facility]O [facility], Endoscopy Room [facility] [address] [place] [phone] Jarvis Vargas DO [address] [place] [address] Upper GI Endoscopy Allergies Active Allergy Reactions Severity Noted Date Comments Codeine Nausea/vomiting 05/20/2011 Hydrocodone Nausea/vomiting 05/20/2011 documented as of this encounter (statuses as of 05/05/2023) Medications Medication Sig Dispensed Refills Start Date End Date Status Mupirocin Calcium 2 % External CreamIndications:Epi staxis Apply topically to affected area 3 times a day. Apply to a R nostril 30 g 2 05/19/2021 Active Additional Information Patient not taking.Reported on 04/29/2023 Prazosin HCl 1 MG Oral Capsule (Minipress) Take 1 Capsule by mouth at bedtime. 0 Active Mupirocin Calcium 2 % External CreamIndications:Epi staxis Apply topically to affected area 3 times a day . Apply to a R nostril 30 g 1 11/19/2021 Active Additional Information Patient not taking.Reported on [...] on tongue. 20 Tablet 1 11/23/2022 Active Additional Information Patient not taking.Reported on 04/29/2023 Polyethylene Glycol 3350 17 GM/SCOOP Oral Powder (MiraLax)Indications :Drug-induced constipation Take 17 g by mouth as needed for Constipation. Dissolve in 8 ounces of gatorade and drink. 850 g 1 11/24/2022 Active Additional Information Patient not taking.Reported on 04/29/2023 Omeprazole 20 MG Oral Capsule Delayed Release (PriLOSEC)Indication s:Acute gastritis without hemorrhage, unspecified gastritis type TAKE 1 CAPSULE BY MOUTH ONCE DAILY 1 HOUR BEFORE THE FIRST MEAL OF THE DAY 90 Capsule 1 03/31/2023 Active QUEtiapine Fumarate 50 MG Oral Tablet (SEROquel) Take 1.5 Tablets by mouth at bedtime. 0 03/22/2023 Active documented as of this encounter (statuses as of 05/05/2023) Active Problems Problem Noted Date Alcohol dependence [...] as of this encounter (statuses as of 05/05/2023) Resolved Problems Problem Noted Date Resolved Date [...] as of this encounter (statuses as of 05/05/2023) Immunizations Name Administration Dates Next Due Pneumococcal Polysaccharide PPV23 (Pneumovax) 08/12/2020 Seasonal Influenza, PF, 6 mo ns & Above, IM , (Flulaval) 05/25/2022,05/19/2021,07/15/2020,05/30 Seasonal Influenza, Quadriva lent, No Preserve, [...] Sign Reading Time Taken Comments Blood Pressure 132/82 05/04/2023 11:18 AM EDT Pulse 82 05/04/2023 11:18 AM EDT Temperature 36.2 C (97.1 F) 05/04/2023 11:03 AM E DT Respiratory Rate 16 05/04/2023 11:18 AM EDT Oxygen Saturation 95% 05/04/2023 11:18 AM EDT Inhaled Oxygen Concentration - - Weight 68.9 kg (152 lb) 05/04/2023 10:04 AM EDT Height 177.8 cm (5' 10") 05/04/2023 10:04 AM EDT Body Mass Index 21.81 05/04/2023 10:04 AM EDT documented in this encounter H&P Notes * Jarvis Vargas, - 05/04/2023 10:44 AM EDT Endoscopy Pre-Procedure Assessment Name: Gentry Rios Date: 05/04/2023 Time: 10:44 AM Procedure(s): Upper GI Endoscopy; with Indication(s) of dilation of stenotic lesions and dysphagia or odynophagia Endoscopy Pre-Procedure Assessment: Prior to the procedure, the patient is identified. The patient's history, medications and allergieshave been reviewed. The patient is competent. The risks and benefits of the proposed procedure and the planned sedation have been discussed with the patient. All questions have been answered and informed consent for the procedure has been obtained. Prior to Admission medications Medication Sig Last Dose Discont. QUEtiapine Fumarate 50 MG Oral Tablet (SEROquel) Take 1.5 Tablets by mouth at bedtime. 05/03/2023 Omeprazole 20 MG Oral Capsule Delayed Release (PriLOSEC) TAKE 1 CAPSULE BY MOUTH ONCE DAILY 1 HOUR BEFORE THE FIRST MEAL OF THE DAY 05/04/2023 Metoprolol Succinate ER 50 MG Oral Tablet Extended Release 24 Hour (toPROL XL) Take 1 Tablet by mouth in the morning. 05/04/2023 Folic Acid 1 MG Oral Tablet Take by mouth 1 Tablet in the morning. 05/03/2023 amLODIPine Besylate 2.5 MG Oral Tablet (Norvasc) Take by mouth 1 Tablet in the morning. 05/04/2023 Prazosin HCl 1 MG Oral Capsule (Minipress) Take 1 Capsule by mouth at bedtime. 05/03/2023 Polyethylene Glycol 3350 17 GM/SCOOP Oral Powder (MiraLax) Take 17 g by mouth as needed for Constipation. Dissolve in 8 ounces of gatorade and drink. Patient not taking: Reported on 04/29/2023 Not Taking Naltrexone HCl 50 MG Oral Tablet (Revia) Take 1 Tablet by mouth every evening. Over 30 Days Ondansetron 4 MG Oral Tablet Disintegrating (Zofran) Place 1 Tablet on tongue every 8 hours as needed for Nausea. dissolve on tongue. Patient not taking: Reported on 04/29/2023 Not Taking Mupirocin Calcium 2 % External Cream Apply topically to affected area 3 times a day . Apply to a R nostril Patient not taking: Reported on 04/29/2023 Not Taking Mupirocin Calcium 2 % External Cream Apply topically to affected area 3 times a day. Apply to a R nostril Patient not taking: Reported on 04/29/2023 Not Taking Review of patient's allergies indicates: Allergen Reactions Codeine Nausea/vomiting Hydrocodone Nausea/vomiting BP 146/97 | Pulse 78 | Temp 36.4 C (97.6 F) (Tympanic) | Resp 20 | Ht 1.778 m (5' 10") | Wt 68.9 kg (152 lb) | SpO2 96% | BMI 21.81 kg/m | BSA 1.84 m Physical Exam: Mental Status Examination: alert and oriented. Airway Examination: normal oropharyngeal airway and neck mobility. Respiratory Examination: clear to auscultation. CV Examination: normal. ASA Grade: II - A patient with mild systemic disease. Abdomen: soft This patient has undergone a preprocedural evaluation. A determination has been made to proceed with the planned procedure under [facility] procedural guidelines and the [facility] Non-Emergent, Elective Medical Services and Treatment Recommendations (published on 12-04-19). The community and hospital prevalence of COVID-19 has been discussed as well as this patient's specific risks associated with SARS-CoV-19 infection. Based upon the clinical acuity and patient-specific care considerations, this procedure is deemed a Tier II - Intermediate acuity treatment or service with either progression or the threat of progressive disease related to the delay in treatment. Not providing the service has the potential for increasing morbidity or mortality. After reviewing the risks and benefits, the patient is deemed in satisfactory condition to undergo the procedure. The anesthesia plan is to use general anesthesia. We have discussed the risks and benefits of upper endoscopy to include bleeding, infection, perforation, discomfort, aspiration and need for follow-up studies. Jarvis Vargas DO 05/04/2023 documented in this encounter Procedure Notes * Elvira Ramirez PA-C - 05/04/2023 10:45 AM EDTAssociated Order(s): UPPER GI ENDOSCOPY [facility] Patient Name: Gentry Rios Procedure Date: 05/04/2023 10:45 AM Date of : 1970 Admit Type: Outpatient Note Status: Finalized Date of : 1970 Admit Type: Outpatient Age: 53 Room: [facility] Gender: Male Note Status: Finalized Procedure: Upper GI endoscopy Indications: Dysphagia Providers: Jarvis Vargas DO (Doctor), Chiquis Quevedo (Fellow) Referring MD: AASHISH Hays (Referring MD) Medicines: General Anesthesia Complications: No immediate complications. Estimated blood loss: Minimal. Procedure: Pre-Anesthesia Assessment: - Prior to the procedure, a History and Physical was performed, and patient medications, allergies and sensitivities were reviewed. The patient's tolerance of previous anesthesia was reviewed. - The risks and benefits of the procedure and the sedation options and risks were discussed with the patient. All questions were answered and informed consent was obtained. - Patient identification and proposed procedure were verified prior to the procedure by the physician, the nurse and the collar stay fuser tender. The procedure was verified in the procedure room. - Pre-procedure physical examination revealed no contraindications to sedation. - ASA Grade Assessment: II - A patient with mild systemic disease. - After reviewing the risks and benefits, the patient was deemed in satisfactory condition to undergo the procedure. - The anesthesia plan was to use general anesthesia. - Immediately prior to administration of medications, the patient was re- assessed for adequacy to receive sedatives. - The heart rate, respiratory rate, oxygen saturations, blood pressure, adequacy of pulmonary ventilation, and response to care were monitored throughout the procedure. - The physical status of the patient was re-assessed after the procedure. After obtaining informed consent, the endoscope was passed under direct vision. All instruments were visually inspected immediately before and after removal from the patient to ensure they are fully intact. Throughout the procedure, the patient's blood pressure, pulse, and oxygen saturations were monitored continuously. The [id number] Endoscope([id number]) was introduced through the mouth, and advanced to the third part of duodenum. The upper GI endoscopy was accomplished without difficulty. The patient tolerated the procedure well. I was present and participated during the entire procedure from insertion to removal of the endoscope. Findings & Specimens: The upper third of the esophagus and middle third of the esophagus were normal. A moderate Schatzki ring was found at the gastroesophageal junction. A guidewire was placed and the scope was withdrawn. Dilation was performed with a Savary dilator with no resistance at 54 Fr. The dilation site was examined following endoscope reinsertion and showed mild mucosal disruption. Estimated blood loss: none. A small hiatal hernia was found. The proximal extent of the gastric folds (end of tubular esophagus) was 38 cm from the incisors. The hiatal narrowing was 41 cm from the incisors. The Z-line was 38 cm from the incisors. The gastric fundus, gastric body, incisura and gastric antrum were normal. The examined duodenum was normal. Impression: - Normal upper third of esophagus and middle third of esophagus. - Moderate Schatzki ring. Dilated to 54 Fr today. - Small hiatal hernia. - Normal gastric fundus, gastric body, incisura and antrum. - Normal examined duodenum. - No specimens collected. Recommendation: - The patient will be observed post-procedure, until all discharge criteria are met. - Mechanical soft diet today. - Use Prilosec (omeprazole) 20 mg PO daily. - Repeat upper endoscopy PRN for retreatment. Jarvis Vargas DO 05/04/2023 10:59:29 AM This report has been signed electronically. Chiquis Quevedo, documented in this encounter Nursing Notes * Fe Agrawal RN - 05/04/2023 12:08 PM EDT Patient is alert, pain free and tolerating po fluids prior to discharge. Patient has been visited by Dr. Jarvis Vargas. Patient has received and demonstrates understanding of discharge instructions. Patient ambulated to private auto accompanied by endo staff. * Fe Agrawal RN - 05/04/2023 11:28 AM EDT Pt made aware that he is to follow a mechanical soft diet today. * Fe Agrawal RN - 05/04/2023 11:05 AM EDT HOB upright. Bryan liquids w/o problems. * Fe Agrawal RN - 05/04/2023 11:03 AM EDT Pt received in recovery lying on L side w/ HOB elevated. Abd soft. VSS. Call rai in reach. * Karl Holbrook RN - 05/04/2023 10:57 AM EDT See anesthesia record for medication administered during procedure. Karl Holbrook RN Pre cleaning of scope at the bedside started by orthotic technician. * Destiny Low RN - 05/04/2023 10:05 AM EDT Patient prepped and ready for procedure. Call rai in reach. * Destiny Low RN - 05/04/2023 9:47 AM EDT The following pt discharge instructions reviewed with pt prior to prodedure: No driving today. No alcohol today. No signing of legal documents. Rest as much as possible today and can return to normal activities tomorrow. No operating any heavy equipment today. Diet as tolerated. Pt verbalized understanding. documented in this encounter Plan of Treatment Upcoming Encounters Date Type Specialty Care Team Description 05/26/2023 Office Visit Family Medicine Elvira Ramirez PA-C [address] [place] [address] 07/13/2023 Laboratory Laboratory [facility] [address] [place] [address] 07/15/2023 Office Visit Hematology Oncology Zacarias Felder MD [address], [place] [id number] 10/13/2023 Office Visit Cardiology Levon Olvera PA-C [address] [place] [address] Scheduled Procedures Name Priority Associated Diagnoses Date/Ti [...] 07/15/2020, Additional history exists GFR 01/13/2024 01/12/2023, 110 03/2022, 05/25/2022, Additional history exists Lipid Panel [...] Not on filedocumented as of this encounter Procedures Procedure Name Priority Date/Time Associated Diagnosis Comments UPPER GI ENDOSCOPY 05/04/2023 10 :45 AM EDT documented in this encounter Results * UPPER GI ENDOSCOPY (05/04/2023 10:45 AM EDT) 05/04/2023 10:4 5 AM EDT Procedure Note Elvira Ramirez PA-C - 05/04/2023 10:45 AM EDT [facility] Patient Name: Gentry Rios Procedure Date: 05/04/2023 10:45 AM Date of : 1970 Admit Type: Outpatient Note Status:Finalized Date of : 1970 Admit Type: Outpatient Age: 53 Room: [facility] Gender: Male Note Status: Finalized Procedure: Upper GI endoscopy Indications: Dysphagia Providers: Jarvis Vargas DO (Doctor), Chiquis Quevedo(Fellow) Referring MD: AASHISH Hays (Referring MD) Medicines: General Anesthesia Complications: No immediate complications. Estimated blood loss:Minimal. Procedure: Pre-Anesthesia Assessment: - Prior to the procedure, a History and Physicalwas performed, and patient medications, allergies and sensitivities werereviewed. The patient's tolerance of previous anesthesia was reviewed. - The risks and benefits of the procedure and thesedation options and risks were discussed with the patient. All questions wereanswered and informed consent was obtained. - Patient identification and proposed procedurewere verified prior to the procedure by the physician, the nurse and the collar stay fuser tender.The procedure was verified in the procedure room. - Pre-procedure physical examination revealed nocontraindications to sedation. - ASA Grade Assessment: II - A patient with mildsystemic disease. - After reviewing the risks and benefits, thepatient was deemed in satisfactory condition to undergo the procedure. - The anesthesia plan was to use generalanesthesia. - Immediately prior to administration ofmedications, the patient was re-assessed for adequacy to receive sedatives. - The heart rate, respiratory rate, oxygensaturations, blood pressure, adequacy of pulmonary ventilation, and response to care weremonitored throughout the procedure. - The physical status of the patient wasre-assessed after the procedure. After obtaining informed consent, the endoscope waspassed under direct vision. All instruments were visually inspected immediatelybefore and after removal from the patient to ensure they are fully intact. Throughout the procedure, the patient's bloodpressure, pulse, and oxygen saturations were monitored continuously. The [id number]) was introduced through the mouth, and advanced to the third part ofduodenum. The upper GI endoscopy was accomplished without difficulty. The patienttolerated the procedure well. I was present and participated during the entireprocedure from insertion to removal of the endoscope. Findings & Specimens: The upper third of the esophagus and middle third of the esophaguswere normal. A moderate Schatzki ring was found at the gastroesophageal junction.A guidewire was placed and the scope was withdrawn. Dilation was performed with a Savary dilatorwith no resistance at 54 Fr. The dilation site was examined following endoscope reinsertion and showedmild mucosal disruption. Estimated blood loss: none. A small hiatal hernia was found. The proximal extent of the gastricfolds (end of tubular esophagus) was 38 cm from the incisors. The hiatal narrowing was 41 cm from theincisors. The Z-line was 38 cm from the incisors. The gastric fundus, gastric body, incisura and gastric antrum werenormal. The examined duodenum was normal. Impression: - Normal upper third of esophagus and middle thirdof esophagus. - Moderate Schatzki ring. Dilated to 54 Fr today. - Small hiatal hernia. - Normal gastric fundus, gastric body, incisura andantrum. - Normal examined duodenum. - No specimens collected. Recommendation: - The patient will be observed post-procedure,until all discharge criteria are met. - Mechanical soft diet today. - Use Prilosec (omeprazole) 20 mg PO daily. - Repeat upper endoscopy PRN for retreatment. Jarvis Vargas DO 05/04/2023 10:59:29 AM This report has been signed electronically. Chiquis Quevedo, Elvira Raimrez PA-C [facility] documented in this encounter Administered Medications Inactive Administered Medications - up to 3 most recent administrations Medication Order MAR Action Action Date Dose Rate Site Acetaminophen (Tylenol) tab 650 mg 650 mg, Oral, PRN Pain, Mild, Starting on Tue05/04/23 at 1107, Until Tue05/04/23 at 1610, For 1 dose, Maximum of 4 grams (4000 mg) per day., Post-op isolyte-S pH 7.4 infusion Intravenous, at 100 mL/hr, Plasma-LYTE 148, isolyte-S, and isolyte-S pH 7.4 are considered equivalent - including for MAR barcode scanning., CONTINUOUS, Starting on Tue05/04/23 at 1030, Until Tue05/04/23 at 1610, Pre-Op Continue from Pre-Op 05/04/2023 10:41 AM EDT 100 mL/hr New Bag 05/04/2023 10:05 AM EDT 100 mL/hr documented in this encounter Active and Recently Administered Medications Times are shown in EDT. Continuous Medication Order 05/02/2023 05/03/2023 05/04/2023 isolyte-S pH 7.4 infusion Intravenous, at 100 mL/hr, Plasma-LYTE 148, isolyte-S, and isolyte-S pH 7.4 are considered equivalent - including for MAR barcode scanning., CONTINUOUS, Starting on Tue05/04/23 at 1030, Until Tue05/04/23 at 1610, Pre-Op 1005 (New Bag - Prov ider: Destiny Low RN)1041 (Continue from Pre-Op - Provider: Thu Castellanos CRNA)1057 (Anes Intra-Op Fluid - Provider: Thu Castellanos CRNA) PRN Medication Order 05/02/2023 05/03/2023 05/04/2023 Acetaminophen (Tylenol) tab 650 mg 650 mg, Oral, PRN Pain, Mild, Starting on Tue05/04/23 at 1107, Until Tue05/04/23 at 1610, For 1 dose, Maximum of 4 grams (4000 mg) per day., Post-op documented in this encounter Care Teams Multi Spindle Operator Relationship Specialty Start Date End Date Elvira Ramirez PA-C [address] [place] [address] PCP - General Physician Laboratory Specialist 11/23/22 documented as of this encounter
--- OUTSIDE RECORDS SUMMARY | 2023-07-13 23:32 | External Medical Summary | Summary of Care ---
Author Name Unknown Organization [facility] Address [address] [place] [address] Phone [phone] Care Team Providers Care Advanced Quality Engineer Name Role Phone Elvira Ramirez PA-C Primary Care Provider [phone] Reason for Visit * Reason Comments eRx-Medication Refill Encounter Details Date Type Department Care Team Description 03/31/2023 Refill [facility] [address] [place] [address] Levon Cardenas MD [address], [place] [phone] Acute gastritis without hemorrhage, unspecified gastritis type Allergies Active Allergy Reactions Severity Noted Date Comments Codeine Nausea/vomiting 05/20/2011 Hydrocodone Nausea/vomiting 05/20/2011 documented as of this encounter (statuses as of 03/31/2023) Medications Medication Sig Dispensed Refills Start Date End Date Status QUEtiapine Fumarate 25 MG Oral Tablet (SEROquel) Take 1 Tablet by mouth at bedtime. 0 Active Mupirocin [...] 06/18/2022 Active Folic Acid 1 MG Oral TabletIndications:L ymphoplasmacytoid lymphoma, CLL (HCC) Take by mouth 1 [...] Polyethylene Glycol 3350 17 GM/SCOOP Oral Powder (MiraLax)Indication s:Drug-induced constipation Take 17 g by mouth as needed for Constipation. Dissolve in 8 ounces of gatorade and drink. 850 g 1 11/24/2022 Active Omeprazole 20 MG Oral Capsule Delayed Release (PriLOSEC)Indicatio ns:Acute gastritis without hemorrhage, unspecified gastritis type TAKE 1 CAPSULE BY MOUTH ONCE DAILY 1 HOUR BEFORE THE FIRST MEAL OF THE DAY 90 Capsule 1 03/31/2023 Active Omeprazole 20 MG Oral Capsule Delayed Release (PriLOSEC)Indicatio ns:Acute gastritis without hemorrhage, unspecified gastritis type TAKE 1 CAPSULE BY MOUTH ONCE DAILY 1 HOUR BEFORE THE FIRST MEAL OF THE DAY 90 Capsule 1 10/03/2022 03/31/20 23 Discontinued documented as of this encounter (statuses as of 03/31/2023) Active Problems Problem Noted Date Alcohol dependence [...] as of this encounter (statuses as of 03/31/2023) Resolved Problems Problem Noted Date Resolved Date [...] as of this encounter (statuses as of 03/31/2023) Immunizations Name Administration Dates Next Due Pneumococcal [...] encounter Miscellaneous Notes * Telephone Encounter - Lauren Barrera RPh - 03/31/2023 3:52 PM EDTSigned Prescriptions: Disp Refills Omeprazole 20 MG Oral Capsule Delayed Rele*90 Cap*1 Sig: TAKE 1 CAPSULE BY MOUTH ONCE DAILY 1 HOUR BEFORE THE FIRST MEAL OF THE DAYAuthorizing Provider: ELVIRA RAMIREZ AOrdering User: LAUREN BARRERA documented in this encounter Plan of Treatment Upcoming Encounters Date Type Specialty Care Team Description 04/04/2023 Office Visit Cardiology Karon Mishra PA-C [address] [place] [address] 05/04/2023 Hospital Encounter Endoscopy Jarvis Vargas, DO [address] [place] [address] 05/04/2023 Surgery Endoscopy Jarvis Vargas, DO [address] [place] [address] ESOPHAGOGASTRODUODENOSCOPY (EGD), FLEXIBLE, TRANSORAL, DIAGNOSTIC 05/26/2023 Office Visit Family Medicine Elvira Ramirez PA-C [address] [place] [address] 07/13/2023 Laboratory Laboratory [place] [address] [place] [address] 07/15/2023 Office Visit Hematology Oncology Zacarias Felder MD [address] [place] [address], [place] [address] Scheduled Procedures Name Priority Associated Diagnoses Date/Ti [...] as of this encounter Visit Diagnoses Diagnosis Acute gastritis without hemorrhage, unspecified gastritis type Dysphagia Dysphagia, unspecified Schatzki's ring Congenital tracheoesophageal fistula, esophageal atresia and stenosis documented in this encounter Care Teams Advanced Quality Engineer Relationship Specialty Start Date End Date Elvira Ramirez PA-C [address] [place] [address] PCP - General Physician Physical Security Specialist 11/23/22 documented as of this encounter
--- OUTSIDE RECORDS SUMMARY | 2023-07-13 23:32 | External Medical Summary | Summary of Care ---
Author Name Unknown Organization [facility] Address [address] [place] [address] Phone [phone] Care Team Providers Care Newspaper Correspondent Name Role Phone Elvira Ramirez PA-C Primary Care Provider [phone] Reason for Visit * Reason Onset Date Comments Forms Request 06/14/2023 Encounter Details Date Type Department Care Team Description 06/14/2023 Telephone [facility] [address] [place] [address] Elvira Ramirez PA-C [address] [place] [address] Forms Request Allergies Active Allergy Reactions Severity Noted Date Comments Codeine Nausea/vomiting 05/20/2011 Hydrocodone Nausea/vomiting 05/20/2011 documented as of this encounter (statuses as of 06/14/2023) Medications Medication Sig Dispensed Refills Start Date [...] 1 MG Oral TabletIndications:Ly mphoplasmacytoid lymphoma, CLL Take by mouth 1 Tablet in the morning. 90 Tablet 3 06/27/2022 Active Naltrexone HCl 50 MG Oral Tablet (Revia) Take 1 Tablet by mouth every evening. 0 09/27/2022 Active Metoprolol Succinate ER 50 MG Oral Tablet Extended Release 24 Hour (toPROL XL)Indications:HTN, goal below 140/90 Take 1 Tablet by mouth in the morning. 90 Tablet 1 11/23/2022 Active Omeprazole 20 MG Oral Capsule Delayed Release (PriLOSEC)Indication s:Acute gastritis without hemorrhage, unspecified gastritis type TAKE 1 CAPSULE BY MOUTH ONCE DAILY 1 HOUR BEFORE THE FIRST MEAL OF THE DAY 90 Capsule 1 03/31/2023 Active QUEtiapine Fumarate 50 MG Oral Tablet (SEROquel) Take 1.5 Tablets by mouth at bedtime. 0 03/22/2023 Active Ondansetron 4 MG Oral Tablet Disintegrating (Zofran)Indications: Nausea Place 1 Tablet on tongue every 8 hours as needed for Nausea. dissolve on tongue. 20 Tablet 1 05/26/2023 Active documented as of this encounter (statuses as of 06/14/2023) Active Problems Problem Noted Date Alcohol dependence [...] as of this encounter (statuses as of 06/14/2023) Resolved Problems Problem Noted Date Resolved Date [...] as of this encounter (statuses as of 06/14/2023) Immunizations Name Administration Dates Next Due Pneumococcal [...] encounter Miscellaneous Notes * Telephone Encounter - JESUS ALBERTO Borden - 06/14/2023 2:23 PM EDT Received authorization for release of information to fax documents to [employer] program. Faxed. documented in this encounter Plan of Treatment Upcoming Encounters Date Type Specialty Care Team Description 07/13/2023 Laboratory Laboratory [facility] [address] [place] [address] 07/15/2023 Office Visit Hematology Oncology Zacarias Felder MD [address] [facility] [place] [address] 10/13/2023 Office Visit Cardiology Levon Olvera PA-C [address] [place] [address] 11/24/2023 Office Visit Family Medicine Elvira Ramirez PA-C [address] [place] [address] Scheduled Procedures Name Priority Associated Diagnoses Date/Ti [...] Not on filedocumented as of this encounter Care Teams Newspaper Correspondent Relationship Specialty Start Date End Date Elvira Ramirez PA-C [address] [place] [address] PCP - General Physician Building Guard Deputy Sheriff 11/23/22 documented as of this encounter
--- OUTSIDE RECORDS SUMMARY | 2023-07-13 23:32 | External Medical Summary | Summary of Care ---
Author Name Unknown Organization [facility] Address [address] [place] [address] Phone [phone] Care Team Providers Care Tai Chi Instructor Name Role Phone Elvira Ramirez PA-C Primary Care Provider [phone] Reason for Visit * Reason Comments Re-Check Encounter Details Date Type Department Care Team Description 05/26/2023 Office Visit [facility] [address] [place] [address] Elvira Ramirez PA-C [address] [place] [address] History of hernia repair*; HTN, goal below 140/90; History of alcohol abuse; Nausea; Influenza vaccine refused Allergies Active Allergy Reactions Severity Noted Date Comments Codeine Nausea/vomiting 05/20/2011 Hydrocodone Nausea/vomiting 05/20/2011 documented as of this encounter (statuses as of 05/26/2023) Medications Medication Sig Dispensed Refills Start Date [...] by mouth every evening. 0 3 Active Metoprolol Succinate ER 50 MG Oral Tablet Extended Release 24 Hour (toPROL XL)Indications:HTN, goal below 140/90 Take 1 Tablet by mouth in the morning. 90 Tablet 1 3 Active Omeprazole 20 MG Oral Capsule [...] on tongue. 20 Tablet 1 3 Active Ondansetron 4 MG Oral Tablet Disintegrating (Zofran)Indications :Nausea Place 1 Tablet on tongue every 8 hours as needed for Nausea. dissolve on tongue. 20 Tablet 1 3 05/26/20 23 Discontinued Polyethylene Glycol 3350 17 GM/SCOOP Oral Powder (MiraLax)Indication s:Drug-induced constipation Take 17 g by mouth as needed for Constipation. Dissolve in 8 ounces of gatorade and drink. 850 g 1 3 05/26/20 23 Discontinued documented as of this encounter (statuses as of 05/26/2023) Active Problems Problem Noted Date Alcohol dependence [...] as of this encounter (statuses as of 05/26/2023) Resolved Problems Problem Noted Date Resolved Date [...] as of this encounter (statuses as of 05/26/2023) Immunizations Name Administration Dates Next Due Pneumococcal [...] Sign Reading Time Taken Comments Blood Pressure 140/84 05/26/2023 9:57 AM EDT Pulse 73 05/26/2023 9:57 AM EDT Temperature 36.2 C (97.1 F) 05/26/2023 9:57 AM ED T Respiratory Rate 16 05/26/2023 9:57 AM EDT Oxygen Saturation - - Inhaled Oxygen Concentration - - Weight 68.9 kg (151 lb 12.8 oz) 05/26/2023 9:57 AM EDT Height - - Body Mass Index 21.78 05/04/2023 10:04 AM EDT documented in this encounter Progress Notes * Elvira Ramirez PA-C - 05/26/2023 10:08 AM EDT Images from the original note were not included. History of Present Illness Gentry Rios is a 53 year old male that presents for Re-Check Here for recheck Had zio patch that showed some episodic svt. On bb. He is asymptomatic. He did just have egd - they did dilate him again. He was starting to notice problems with dense foods. This is much better - no more problems. He is careful with diet. Mood is ok. He is seeing psych for his meds. Drinking is controlled. He still drinks but not to excess. He had a hernia taken care of years ago. Starting to get sore and is sensitive. Component Latest Ref Rng 01/12/2023 Triglycerides <=174 mg/dL 130 Cholesterol <200 mg/dL 172 HDL Cholesterol >39 mg/dL 47 Non-HDL Cholesterol <=159 mg/dL 125 LDL Cholesterol <=129 mg/dL 99 Hemoglobin A1C 4.0 - 5.6 % 5.1 Estimated Average Glucose <126 mg/dL 100 TSH 0.27 - 4.20 uIU/mL 1.76 T4, Free 0.9 - 1.7 ng/dL 0.9 Physical Exam Vitals: 05/26/23 0957 Temp: 36.2 C (97.1 F) Pulse: 73 Resp: 16 BP: 140/84 BP Readings from Last 3 Encounters: 05/26/23 140/84 05/04/23 132/82 04/04/23 136/70 Wt Readings from Last 3 Encounters: 05/26/23 68.9 kg (151 lb 12.8 oz) 05/04/23 68.9 kg (152 lb) 04/04/23 69.1 kg (152 lb 4 oz) BMI Readings from Last 3 Encounters: 05/26/23 21.78 kg/m 05/04/23 21.81 kg/m 04/04/23 21.85 kg/m Ht Readings from Last 3 Encounters: 05/04/23 1.778 m (5' 10") 11/23/22 1.778 m (5' 10") 05/25/22 1.778 m (5' 10") General: alert, healthy, and no distress Head: Normocephalic, No masses, lesions, tenderness or abnormalities Eye Exam: PERRLA, extraocular movements intact, conjunctiva are pink and non- injected, sclera clear Ears: External ears normal, Canals clear, TM's Normal Nose: no mucosal erythema, no mucosal edema, no purulent discharge Oropharynx: no exudate, no erythema, lips, buccal mucosa, and tongue normal, and mucous membranes are moist Neck: supple, no adenopathy, no bruits, thyroid normal size, non-tender, without nodularity Heart: regular rate & rhythm, no murmur, no gallops, S-1 normal, and S-2 normal Lungs: chest symmetric with normal AP diameter, no chest deformities noted, no chest wall tenderness, lungs clear to auscultation Extremities: less than 2 second capillary refill, no joint deformities, effusion, or inflammation Assessment and Plan History of hernia repair (Primary) - US SCROTUM/TESTES; Future; Expected date: 05/26/2023 HTN, goal below 140/90 - ALBUMIN / CREATININE RATIO, URINE; Future; Expected date: 05/26/2023 History of alcohol abuse Nausea - Ondansetron 4 MG Oral Tablet Disintegrating (Zofran); Place 1 Tablet on tongue every 8 hours as needed for Nausea. dissolve on tongue. Influenza vaccine refused Follow Up: Return in about 6 months (around 11/24/2023) for reg return. | For: reg return | Check-out note: Us for hernia? Labs current Seeing psych No major issues F/u on hernia? Wrap-Up Time: I spent a total of 10-19 minutes (exact time 19 mins) on the date of service in preparation, delivery, and documentation of the care provided to Gentry Rios excluding any time spent in the performance of separately billed services. Elvira Ramirez PA-C 05/26/2023 10:14 AM documented in this encounter Nursing Notes * Davina Hagen LPN - 05/26/2023 9:57 AM EDT 6 month return No concerns documented in this encounter Plan of Treatment Upcoming Encounters Date Type Specialty Care Team Description 05/31/2023 Imaging Radiology 07/13/2023 Laboratory Laboratory [place] [address] [place] [address] 07/15/2023 Office Visit Hematology Oncology Zacarias Felder MD [address] [place] [address] 10/13/2023 Office Visit Cardiology Levon Olvera PA-C [address] [place] [address] 11/24/2023 Office Visit Family Medicine Elvira Ramirez PA-C [address] [place] [address] Scheduled Orders Name Type Priority Associated Diagnoses Orde r Schedule US SCROTUM/TESTES Medical Imaging Routine History of hernia repair Expected: 05/26/2023, Expires: 06/25/2024 ALBUMIN / CREATININE RATIO, URINE Lab Routine HTN, goal below 140/90 Expected: 05/26/2023 (Approximate), Expires: 05/25/2024 Scheduled Procedures Name Priority Associated Diagnoses Date/Ti [...] as of this encounter Visit Diagnoses Diagnosis History of hernia repair- Primary Other postprocedural status HTN, goal below 140/90 Unspecified essential hypertension History of alcohol abuse Nondependent alcohol abuse, in remission Nausea Nausea alone Influenza vaccine refused Vaccination not carried out because of patient refusal documented in this encounter Care Teams Tai Chi Instructor Relationship Specialty Start Date End Date Elvira Ramirez PA-C [address] [place] [address] PCP - General Physician Family Day Care Worker 11/23/22 documented as of this encounter
== END 2023-07-12 17:04 | disposition left against medical advice (07) | DRG 683 ==
LOC: ED 17:48 → 2E 23:05
DX: G40.909 Epilepsy, unspecified, not intractable, without status epilepticus; I24.89 Other forms of acute ischemic heart disease; E16.2 Hypoglycemia, unspecified; C83.00 Small cell B-cell lymphoma, unspecified site; K52.9 Noninfective gastroenteritis and colitis, unspecified; G62.9 Polyneuropathy, unspecified; Z88.5 Allergy status to narcotic agent; I10 Essential (primary) hypertension; F10.10 Alcohol abuse, uncomplicated; E86.0 Dehydration; N17.9 Acute kidney failure, unspecified